=== PATIENT | male | born 1950 | race Caucasian/White ===

== ENCOUNTER 2016-12-22 12:53 | Inpatient (IN) | payer OTHER ==
[2016-12-22] VITALS (9 sets, daily range): BP systolic 105–134; BP diastolic 70–84
[~2016-12-22] VITALS: Ht 177.8 cm; Wt 102.5 kg
[~2016-12-22 12:53] MED LIST: ALBU2.5V5 IH; ALBU2.5V5 NEB; AMLO5TAB4 PO; ASPI325T4 PO; ASPI81TA2 PO; BENZ100C2 PO; BENZ1LOZ48 PO; BESI5DRO RIGHTEYE; BUDE10.2 IH; BYSTOLIC10 MG PO; BYSTOLIC20 MG PO; CARB200T37 PO; CIPR250T30 PO; CYCL10TA2 PO; DILT240C2 PO; DOXY100T PO; ESOM40CA PO; FLUT16SP NS; FLUT9.9S NS; FURO-69 PO; FURO20TA3 PO; FURO40TA4 PO; GABA-586 PO; GUAI100L12 PO; GUAI5SYR PO; GUAI600T38 PO; HYDR-2666 PO; IBUP200T43 PO; IPRA3AMP IH; IPRA3AMP NEB; LEVO500T38 PO; LORA1TAB PO; LOSA50TA6 PO; LOVA20TA2 PO; METH4TAB6 PO; MULT1TAB6 PO; NAPR375T PO; NEPA1.7D RIGHTEYE; NYST1000 PO; OXYC5TAB PO; PRED5DRO6 EACHEYE; PRED5DRO6 RIGHTEYE; PRED5TAB PO; PROM118S2 PO; PROVENTIL HFA6.7 GM IH; SUCR1ORA PO; SUCR1TAB PO; SULF1TAB24 PO; TAMS0.4C2 PO; TIOT18CA IH; TIOT4MIS2 IH; TRAM-29 PO; TRAZ100T12 PO; TRAZ50TA15 PO; ZOLP10TA4 PO
[2016-12-22] MEDS ORDERED: methylPREDNISolone SOD SUCC PF 125 MG/2 ML VIAL. IV ONE (13:00)
[2016-12-22] MEDS ORDERED: IV NORMAL SALINE 500ML BAG 500 ML IV ONE (13:00)
[2016-12-22] MEDS ORDERED: LORAZEPAM 2 MG/ML VIAL IV ONE (13:00)
[2016-12-22] MEDS ORDERED: IPRATRPIUM/ALBUTEROL 0.5/2.5MG 3 ML NEBU. NEB ONE (13:00)
--- NOTE | 2016-12-22 13:00 | PHYS DOC ---
Past Medical History Past Medical History: A-Fib, COPD, Hypertension Additional Past Medical Histor: BACK PAIN, lymphedema, afib with RVR Past Surgical History: Colectomy, Other Additional Past Surgical Histo: RT SHOULDER, BACK Alcohol Use: None Drug Use: None Adult General HPI HPI 66-year-old male presents in acute respiratory distress after being found to have a saturation in the mid 80s by EMS. Patient would not tolerate nonrebreather mask and required bag valve mask ventilation upon arrival. He is in obvious distress and not really speaking in complete sentences. He was immediately placed on BiPAP therapy upon my reassessment the patient now feels improved and is able to provide a history. He states he has been having a chronic cough and states his breathing has worsened acutely today. He states he feels like he has a lot of phlegm in his throat that he cannot clear adequately. He denies any chest pain. He denies any fever. Patient states his symptoms became severe while he was trying to administer a breathing treatment. His daughter arrived and called EMS. Patient does state he has required intubation in the past. 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 Review of Systems Review of Systems Constitutional: Denies fever or chills [] Eyes: Denies change in visual acuity, redness, or eye pain [] HENT: Denies nasal congestion or sore throat [] Respiratory: Has cough, has shortness of breath [] Cardiovascular: No additional information not addressed in HPI [] GI: Denies abdominal pain, nausea, vomiting, bloody stools or diarrhea [] : Denies dysuria or hematuria [] Musculoskeletal: Denies back pain or joint pain [] Integument: Denies rash or skin lesions [] Neurologic: Denies headache, focal weakness or sensory changes [] Endocrine: Denies polyuria or polydipsia [] Current Medications Current Medications Current Medications Medications (Trade) Dose Ordered Sig/Hesham Start Time Stop Time Status Last Admin Dose Admin Albuterol/ Ipratropium 3 ml 3 ml 1X ONCE 12/22/16 13:00 12/22/16 13:01 DC 12/22/16 13:36 3 ML Lorazepam (Ativan) 0.5 mg 1X ONCE 12/22/16 13:00 12/22/16 13:01 DC 12/22/16 13:14 0.5 MG Methylprednisolone Sodium Succinate (Solu-Medrol 125mg Vial) 125 mg 1X ONCE 12/22/16 13:00 12/22/16 13:01 DC 12/22/16 13:14 125 MG Sodium Chloride (Iv Sodium Chloride 0.9% 500ml Bag) 500 ml @ 500 mls/hr 1X ONCE 12/22/16 13:00 12/22/16 13:59 DC 12/22/16 13:15 500 MLS/HR Allergies Allergies Allergies Coded Allergies Type Severity Reaction Last Updated Verified oxycodone Allergy Intermediate Shortness of Air 05/30/16 Yes Physical Exam Physical Exam Constitutional: Well developed, well nourished, no acute distress, mildly toxic in appearance. [] HENT: Normocephalic, atraumatic, bilateral external ears normal, oropharynx moist, no oral exudates, nose normal. [] Eyes: PERRLA, EOMI, conjunctiva normal, no discharge. [] Neck: Normal range of motion, no tenderness, supple, no stridor. [] Cardiovascular:Heart rate regular rhythm, no murmur [] Lungs & Thorax: Decreased bilaterally with significant respiratory distress, tachypnea [] Abdomen: Bowel sounds normal, soft, no tenderness, no masses, no pulsatile masses. [] Skin: Warm, dry, no erythema, no rash. [] Back: No tenderness, no CVA tenderness. [] Extremities: No tenderness, no cyanosis, no clubbing, ROM intact, no edema. [] Neurologic: Alert and oriented X 3, normal motor function, normal sensory function, no focal deficits noted. [] Psychologic: Affect normal, judgement normal, mood normal. [] Current Patient Data Vital Signs Vital Signs Date Time Temp Pulse Resp B/P Pulse Ox O2 Delivery O2 Flow Rate FiO2 12/22/16 13:15 113 30 155/110 97 BiPAP/CPAP 12/22/16 13:15 98.0 10 98.0 Lab Values Laboratory Tests Test 12/22/16 12:55 12/22/16 13:22 White Blood Count 8.3x10^3/uL (4.0-11.0) Red Blood Count 5.21x10^6/uL (4.30-5.70) Hemoglobin 14.0g/dL (13.0-17.5) Hematocrit 42.9% (39.0-53.0) Mean Corpuscular Volume 82fL (79-100) Mean Corpuscular Hemoglobin 27pg (25-35) Mean Corpuscular Hemoglobin Concent 33g/dL (31-37) Red Cell Distribution Width 14.3% (11.5-14.5) Platelet Count 174x10^3/uL (140-400) Neutrophils (%) (Auto) 70% (31-73) Lymphocytes (%) (Auto) 16% (24-48) L Monocytes (%) (Auto) 10% (0-9) H Eosinophils (%) (Auto) 3% (0-3) Basophils (%) (Auto) 1% (0-3) Neutrophils # (Auto) 5.8x10^3uL (1.8-7.7) Lymphocytes # (Auto) 1.3x10^3/uL (1.0-4.8) Monocytes # (Auto) 0.8x10^3/uL (0.0-1.1) Eosinophils # (Auto) 0.3x10^3/uL (0.0-0.7) Basophils # (Auto) 0.1x10^3/uL (0.0-0.2) Sodium Level 130mmol/L (136-145) L Potassium Level 4.6mmol/L (3.5-5.1) Chloride Level 89mmol/L (98-107) L Carbon Dioxide Level 37mmol/L (21-32) H Anion Gap 4 (6-14) L Blood Urea Nitrogen 9mg/dL (8-26) Creatinine 0.7mg/dL (0.7-1.3) Estimated GFR (Cockcroft-Gault) 113.5 Glucose Level 106mg/dL (70-99) H Calcium Level 9.7mg/dL (8.5-10.1) Troponin I Quantitative < 0.017ng/mL (0.000-0.055) JY-Zvz-L-Type Natriuretic Peptide 93pg/mL (0-124) O2 Saturation 96% (92-99) Arterial Blood pH 7.35 (7.35-7.45) Arterial Blood pCO2 at Patient Temp 64mmHg (35-46) *H Arterial Blood pO2 at Patient Temp 86mmHg (65-108) Arterial Blood HCO3 35mmol/L (21-28) H Arterial Blood Base Excess 7mmol/L (-3-3) H FiO2 40 Laboratory Tests 12/22/16 12:55 Laboratory Tests 12/22/16 12:55 EKG EKG EKG is difficult to interpret secondary to significant artifact due to the patient's work of breathing. There is no obvious ischemic findings. Radiology/Procedures Radiology/Procedures Portable 1 view of the chest as interpreted by me and the radiologist shows diffuse interstitial changes with emphysema. Course & Med Decision Making Course & Med Decision Making Pertinent Labs and Imaging studies reviewed. (See chart for details) 66-year-old male who is having obvious respiratory distress was immediately placed upon BiPAP and reassessed multiple times has significantly improved. His chest x-ray and EKG were fairly unremarkable. I believe his symptoms are likely related to COPD exacerbation. His blood gas revealed a pH of 7.35 with a PCO2 of 63 and a PO2 of 86 his bicarbonate was mildly elevated at 35 which is likely compensatory for his ongoing respiratory acidosis. He will remain on BiPAP therapy and be admitted to the ICU with a pulmonology consult placed. His case was discussed with the hospitalist, Dr. Smith, who agreed to accept the admission and agreed with this treatment plan. Patient was also given a DuoNeb and IV Solu-Medrol. Approximately 30 minutes critical care time reusing with this patient in consultation with specialists. His laboratory workup was otherwise non-revealing. Dragon Disclaimer Dragon Disclaimer This electronic medical record was generated, in whole or in part, using a voice recognition dictation system. Critical Care Time Critical care time was 30 minutes exclusive of procedures. Departure Departure Impression: Primary Impression: COPD with acute exacerbation Additional Impression: Acute respiratory distress Disposition: ADMITTED INPATIENT Admitting Physician: Diamond Triana Condition: CRITICAL Referrals: SUZAN CLARKE (PCP) Problem Qualifiers JERROD MARK DO Dec 22, 2016 13:00
[2016-12-22 13:14] LABS: BASO # 0.1 x10^3/uL (0.0-0.2); BASO % 1 % (0-3); EOS % 3 % (0-3); HEMATOCRIT 42.9 % (39.0-53.0); LYMPH # 1.3 x10^3/uL (1.0-4.8); LYMPH % 16 % (24-48); MEAN CORPUSCULAR HEMOGLOBIN 27 pg (25-35); MEAN CORPUSCULAR HGB CONC 33 g/dL (31-37); MEAN CORPUSCULAR VOLUME 82 fL (79-100); MONO % 10 % (0-9); NEUT % 70 % (31-73); PLATELET COUNT 174 x10^3/uL (140-400); RED BLOOD COUNT 5.21 x10^6/uL (4.30-5.70); RED CELL DISTRIBUTION WIDTH 14.3 % (11.5-14.5); WHITE BLOOD COUNT 8.3 x10^3/uL (4.0-11.0)
--- NOTE | 2016-12-22 13:20 | RAD ---
EXAM: Chest, single view. HISTORY: Shortness of breath. COMPARISON: 06/04/2016. FINDINGS: A frontal view of the chest is obtained. There is emphysema. There has been no significant change in diffuse interstitial prominence. There is no consolidation, effusion or pneumothorax. There is stable blunting of the left costophrenic angle likely due to pleural thickening. The heart is normal in size. IMPRESSION: 1. Stable diffuse interstitial prominence superimposed on emphysema. There is no consolidated infiltrate. 2. Stable left basilar pleural thickening.
[2016-12-22 13:24] LABS: CALCIUM 9.7 mg/dL (8.5-10.1); CREATININE 0.7 mg/dL (0.7-1.3); GFR 113.5; POTASSIUM 4.6 mmol/L (3.5-5.1)
[2016-12-22] MEDS ORDERED: ONDANSETRON PF 4 MG/2 ML VIAL. IV PRN ×2 (13:45→15:05)
[2016-12-22] MEDS ORDERED: ACETAMINOPHEN 325 MG TABLET. PO PRN (13:45)
[2016-12-22 13:56] LABS: HCO3 ABG 35 mmol/L (21-28); PH ABG 7.35 (7.35-7.45); PO2 ABG 86 mmHg (65-108); SAT O2 ABG 96 % (92-99)
[2016-12-22 13:57] LABS: FIO2 ABG 40; PCO2 ABG 64 mmHg (35-46)
[2016-12-22] MEDS: IV NORMAL SALINE 1000ML BAG 1,000 ML IV SCH (14:30)
--- NOTE | 2016-12-22 14:41 | ACF ---
Admission Forms Criteria COPD Clinical Indications for Admission to Inpatient Care (Place 'X' for any and all applicable criteria): Admission is indicated for ANY ONE of the following (1)(2)(3): [X]I. Acute exacerbation by high-risk comorbidity (e.g., pneumonia, dysrhythmia, heart failure, pleural effusion, pneumothorax) or severe underlying COPD (e.g., steroid dependent) [X]II. Inpatient admission required rather than observation care (see Chronic Obstructive Pulmonary Disease: Observation Care) because of ANY ONE of the following: [X]a) New or pre-existing signs or symptoms of COPD (eg, dyspnea or Tachypnea at rest or with minimal activity) that persist despite outpatient and observation care treatment [ ]b) New-onset hypoxemia (room air SaO2 less than 90%, PO2 less than 60 mm Hg (8.0 kPa)) that persists despite outpatient and observation care treatment [ ]c) Worsening of pre-existing hypoxemia (eg, new or increased requirement for supplemental oxygen to maintain oxygenation at baseline level) that persists despite outpatient and observation care treatment, with oxygen treatment needs performable only in acute inpatient setting [ ]d) Hypercarbia (PCO2 greater than 40 mm Hg (5.3 kPa))-induced respiratory acidosis (pH less than 7.35) that persists despite outpatient and observation care treatment [ ]e) Supplemental oxygen or respiratory treatments for over 24 hours that are performable only in acute inpatient setting [ ]f) Chest tube placement with active evacuation (e.g., suction, drainage) (5) [ ]g) Other condition, treatment or monitoring requiring inpatient admission [ ]III. Planned invasive surgical or diagnostic procedures requiring acute- care hospitalization [ ]IV. Acute respiratory failure (e.g., uncompensated hypercarbia, severe hypoxemia) [ ]V. Severe comorbid condition (e.g., severe steroid myopathy, acute vertebral fracture) that has acutely worsened pulmonary function [ ]. Confusion state, lethargy, obtundation, stupor or coma Extended stay beyond goal length of stay may be needed for (31)(32): [ ]a ) Respiratory Failure. [ ]b) Severe or persisting hypoxemia or hypercarbia [ ]c) Severe or persistent dyspnea [ ]d) Comorbidities (e.g. chronic heart failure, atrial fibrillation with rapid response, pneumonia) [ ]e) Malnutrition The original [facility] content created by [facility] has been revised. The portions of the content which have been revised are identified through the use of italic text or in bold, and [facility] has neither reviewed nor approved the modified material. All other unmodified content is copyright [facility]. Please see references footnoted in the original [facility] edition 2016 Admission Criteria Met?: Yes DORIS JORDAN Dec 22, 2016 14:41
[2016-12-22] MEDS ORDERED: hydrALAZINE 20 MG/ML VIAL. IVP PRN (15:15)
--- NOTE | 2016-12-22 15:16 | PDOC1 ---
History and Physical Date of Admission Date of Admission DATE: 12/22/16 TIME: 15:08 Identification/Chief Complaint Chief Complaint SOA Source Source: Caregiver, Chart review, Patient History of Present Illness History of Present Illness 66 y/o male known to us bec of COPD exacerbations causing multiple admissions,. Today As per EMS report was satting low 80s, needed to be bagged multiple times in the scene,. Claims compliance of inhalers, his last admission was May 2016 for the same CXR shows: old scarring, otherwise no acute pneumonia At ER pH 7.3, Co2 63, O2 80s, on bipap. Doing relatively good on BIPAP VS ok Always complaining of itchy or chronic dc on the back of his throat, always mentions almost like a bronch to get thephlegm out of back of his throat Past Medical History Cardiovascular: CAD, HTN, Syncope, Hyperlipidemia, Other Pulmonary: Asthma, COPD, Pneumonia, Other CENTRAL NERVOUS SYSTEM: Other GI: GERD Heme/Onc: No pertinent hx, Cancer Hepatobiliary: No pertinent hx Psych: No pertinent hx Musculoskeletal: low back pain, Osteoarthritis Rheumatologic: No pertinent hx Infectious disease: No pertinent hx Renal/: Benign prostatic enlarg. Endocrine: No pertinent hx Past Surgical History Past Surgical History: Cholecystectomy, Other Family History Family History: Chronic Bronchitis Social History Smoke: Quit ALCOHOL: none Drugs: None Current Problem List Problem List Problems Medical Problems: (1) Acute respiratory distress Status: Acute (2) COPD with acute exacerbation Status: Acute Problems: Current Medications Current Medications Current Medications Methylprednisolone Sodium Succinate (Solu-Medrol 125mg Vial) 125 mg 1X ONCE IV Last administered on 12/22/16 13:14; Start 12/22/16 at 13:00; Stop 12/22/16 at 13:01; Status DC Albuterol/ Ipratropium 3 ml 3 ml 1X ONCE NEB Last administered on 12/22/16 13 :36; Start 12/22/16 at 13:00; Stop 12/22/16 at 13:01; Status DC Sodium Chloride (Iv Sodium Chloride 0.9% 500ml Bag) 500 ml @ 500 mls/hr 1X ONCE IV Last administered on 12/22/16 13:15; Start 12/22/16 at 13:00; Stop at 13:59; Status DC Lorazepam (Ativan) 0.5 mg 1X ONCE IV Last administered on 12/22/16t 13:14; Start 12/22/16 at 13:00; Stop 12/22/16 at 13:01; Status DC Ondansetron HCl 4 mg 4 mg PRN Q8HRS PRN IV NAUSEA/VOMITING; Start 12/22/16 at 13:45; Stop 12/22/16 at 15:07; Status DC Sodium Chloride (Iv Sodium Chloride 0.9% 1000ml Bag) 1,000 ml @ 100 mls/hr Q10H IV Last administered on 12/22/16t 14:30; Start 12/22/16 at 14:00; Stop at 13:59 Acetaminophen (Tylenol) 650 mg PRN Q4HRS PRN PO FEVER; Start 12/22/16 at 13:45 ; Stop 12/23/16 at 13:44 Ondansetron HCl (Zofran) 4 mg PRN Q6HRS PRN IV NAUSEA/VOMITING; Start 12/22/16 at 15:05; Status UNV Guaifenesin (Mucinex) 600 mg BID PO ; Start 12/22/16 at 21:00; Status UNV Guaifenesin (Robitussin Dm) 10 ml QID PO ; Start 12/22/16 at 17:00; Status UNV Albuterol/ Ipratropium (Duoneb) 3 ml RTQID NEB ; Start 12/22/16 at 16:00; Status UNV Aspirin (Yolette Aspirin) 325 mg DAILY PO ; Start 12/23/16 at 09:00; Status UNV Throat Lozenges (Cepacol Sore Throat Lozenge) 1 analia PRN Q2HRS PRN PO SORE THROAT; Start 12/22/16 at 15:15; Status UNV Benzonatate (Tessalon Perle) 100 mg TID PRN PO COUGH; Start 12/22/16 at 15:15; Status UNV Diltiazem HCl (Cardizem 24hr Cd) 240 mg DAILY PO ; Start 12/23/16 at 09:00; Status UNV Furosemide (Lasix) 40 mg DAILY PO ; Start 12/23/16 at 09:00; Status UNV Losartan Potassium (Cozaar) 100 mg DAILY PO ; Start 12/23/16 at 09:00; Status UNV Tamsulosin HCl (Flomax) 0.4 mg DAILY PO ; Start 12/23/16 at 09:00; Status UNV Non-Formulary Medication 40 mg DAILY PO GERD; Start 12/23/16 at 09:00; Status UNV Non-Formulary Medication 20 mg DAILY PO cholesterol; Start 12/23/16 at 09:00; Status UNV Active Scripts Active Cepacol Sore Throat Lozenge (Benzocaine/Menthol) 1 Each Lozenge 1 Analia PO PRN Q2HRS PRN Benzonatate 100 Mg Capsule 100 Mg PO TID PRN Promethazine-Codeine Syrup (Promethazine Hcl/Codeine) 118 Ml Syrup 5 Ml PO PRN Q4HRS PRN Mucinex (Guaifenesin) 600 Mg Tablet.er 1 Tab PO BID Reported Guaifenesin Dm Syrup (Guaifenesin/Dextromethorphan) 5 Ml Syrup 10 Ml PO PRN Q6HRS PRN Flonase Allergy Relief (Fluticasone Propionate) 9.9 Ml Pilgrim.susp 2 Sprays NS DAILY Cardizem Cd (Diltiazem Hcl) 240 Mg Cap.er.24h 1 Cap PO DAILY Albuterol Sulfate Neb Soln (Albuterol Sulfate) 2.5 Mg/3 Ml Vial.neb 1 Vial NEB PRN Q2HRS PRN Aspirin 325 Mg Tablet 1 Tab PO DAILY Duoneb 0.5-3(2.5) Mg/3 Ml (Albuterol/Ipratropium) 3 Ml Ampul.neb 3 Ml IH Q4HRS Symbicort 160-4.5 Mcg Inhaler (Budesonide/Formoterol Fumarate) 10.2 Gm Hfa.aer.ad 2 Puff IH BID Furosemide 40 Mg Tablet 40 Mg PO DAILY Nexium Capsule (Esomeprazole Magnesium) 40 Mg Capsule.dr 40 Mg PO DAILY Lovastatin 20 Mg Tablet 20 Mg PO DAILY Tamsulosin Hcl 0.4 Mg Cap.er.24h 0.4 Mg PO DAILY Losartan Potassium 50 Mg Tablet 100 Mg PO DAILY Allergies Allergies: Coded Allergies: oxycodone (Verified Allergy, Intermediate, Shortness of Air, 05/30/16) problems with increased CO2 levels with his COPD ROS Review of System limited on bIPAP Physical Exam General: mild distress, moderate distress, Other (on bipap) HEENT: Atraumatic Lungs: Normal air movement, Other (dec BS, tight air entry) Cardiovascular: S1, S2 Breasts: Normal Abdomen: Normal bowel sounds, Soft, No tenderness, No hepatosplenomegaly, No masses Rectal Exam: not examined, mass PELVIC: Nml ext genitalia Extremities: No clubbing, No cyanosis, No edema, Normal pulses, No tenderness/ swelling Skin: No rashes, No breakdown, No significant lesion Psych/Mental Status: Mental status NL, Mood NL Vitals Vitals Vital Signs Date Time Temp Pulse Resp B/P Pulse Ox O2 Delivery O2 Flow Rate FiO2 12/22/16 14:58 95 BiPAP/CPAP 12/22/16 14:18 104 30 135/81 12/22/16 13:15 98.0 10 98.0 Labs Labs Laboratory Tests Test 12/22/16 12:55 12/22/16 13:22 White Blood Count 8.3x10^3/uL (4.0-11.0) Red Blood Count 5.21x10^6/uL (4.30-5.70) Hemoglobin 14.0g/dL (13.0-17.5) Hematocrit 42.9% (39.0-53.0) Mean Corpuscular Volume 82fL (79-100) Mean Corpuscular Hemoglobin 27pg (25-35) Mean Corpuscular Hemoglobin Concent 33g/dL (31-37) Red Cell Distribution Width 14.3% (11.5-14.5) Platelet Count 174x10^3/uL (140-400) Neutrophils (%) (Auto) 70% (31-73) Lymphocytes (%) (Auto) 16% (24-48) Monocytes (%) (Auto) 10% (0-9) Eosinophils (%) (Auto) 3% (0-3) Basophils (%) (Auto) 1% (0-3) Neutrophils # (Auto) 5.8x10^3uL (1.8-7.7) Lymphocytes # (Auto) 1.3x10^3/uL (1.0-4.8) Monocytes # (Auto) 0.8x10^3/uL (0.0-1.1) Eosinophils # (Auto) 0.3x10^3/uL (0.0-0.7) Basophils # (Auto) 0.1x10^3/uL (0.0-0.2) Sodium Level 130mmol/L (136-145) Potassium Level 4.6mmol/L (3.5-5.1) Chloride Level 89mmol/L (98-107) Carbon Dioxide Level 37mmol/L (21-32) Anion Gap 4 (6-14) Blood Urea Nitrogen 9mg/dL (8-26) Creatinine 0.7mg/dL (0.7-1.3) Estimated GFR (Cockcroft-Gault) 113.5 Glucose Level 106mg/dL (70-99) Calcium Level 9.7mg/dL (8.5-10.1) Troponin I Quantitative < 0.017ng/mL (0.000-0.055) PI-Ssc-T-Type Natriuretic Peptide 93pg/mL (0-124) O2 Saturation 96% (92-99) Arterial Blood pH 7.35 (7.35-7.45) Arterial Blood pCO2 at Patient Temp 64mmHg (35-46) Arterial Blood pO2 at Patient Temp 86mmHg (65-108) Arterial Blood HCO3 35mmol/L (21-28) Arterial Blood Base Excess 7mmol/L (-3-3) FiO2 40 Laboratory Tests Test 12/22/16 12:55 12/22/16 13:22 White Blood Count 8.3x10^3/uL (4.0-11.0) Red Blood Count 5.21x10^6/uL (4.30-5.70) Hemoglobin 14.0g/dL (13.0-17.5) Hematocrit 42.9% (39.0-53.0) Mean Corpuscular Volume 82fL (79-100) Mean Corpuscular Hemoglobin 27pg (25-35) Mean Corpuscular Hemoglobin Concent 33g/dL (31-37) Red Cell Distribution Width 14.3% (11.5-14.5) Platelet Count 174x10^3/uL (140-400) Neutrophils (%) (Auto) 70% (31-73) Lymphocytes (%) (Auto) 16% (24-48) Monocytes (%) (Auto) 10% (0-9) Eosinophils (%) (Auto) 3% (0-3) Basophils (%) (Auto) 1% (0-3) Neutrophils # (Auto) 5.8x10^3uL (1.8-7.7) Lymphocytes # (Auto) 1.3x10^3/uL (1.0-4.8) Monocytes # (Auto) 0.8x10^3/uL (0.0-1.1) Eosinophils # (Auto) 0.3x10^3/uL (0.0-0.7) Basophils # (Auto) 0.1x10^3/uL (0.0-0.2) Sodium Level 130mmol/L (136-145) Potassium Level 4.6mmol/L (3.5-5.1) Chloride Level 89mmol/L (98-107) Carbon Dioxide Level 37mmol/L (21-32) Anion Gap 4 (6-14) Blood Urea Nitrogen 9mg/dL (8-26) Creatinine 0.7mg/dL (0.7-1.3) Estimated GFR (Cockcroft-Gault) 113.5 Glucose Level 106mg/dL (70-99) Calcium Level 9.7mg/dL (8.5-10.1) Troponin I Quantitative < 0.017ng/mL (0.000-0.055) RW-Oks-B-Type Natriuretic Peptide 93pg/mL (0-124) O2 Saturation 96% (92-99) Arterial Blood pH 7.35 (7.35-7.45) Arterial Blood pCO2 at Patient Temp 64mmHg (35-46) Arterial Blood pO2 at Patient Temp 86mmHg (65-108) Arterial Blood HCO3 35mmol/L (21-28) Arterial Blood Base Excess 7mmol/L (-3-3) FiO2 40 VTE Prophylaxis Ordered VTE Prophylaxis Devices: Yes VTE Pharmacological Prophylaxi: Yes Assessment/Plan Assessment/Plan 1. Acute hypoxic respiratory failure needing NIPPV and bagging at the scene 1.Acute bronchitis 2. AECOPD, severe 3. PRev smoker (quit 2 yrs ago) 4. Obesity 5. Salazar Dermatitis face, better 6. Superficial dermatitis, intertriginous areas 7. Obesity 8. MIld to mod PCM 9./ GERD 10. LEg edema 12. Scrotal swelling, resolved 13. Post nasal drip PLAN: NEbs, steroids, ICU admit Pulmo consult At least 2 cough meds PT/OT REg diet when off bipap Cetirizine NAsal sprays - help with post nasal gtt seen at ER Resume home meds PT/OT once more able dw family cc 30 DAVID KEBEDE MD Dec 22, 2016 15:16
[2016-12-22] MEDS ORDERED: PANT40GR PO (15:35)
[2016-12-22] MEDS ORDERED: ATOR10TA PO (15:35)
[2016-12-22] MEDS ORDERED: ASPI325T4 PO (15:35)
[2016-12-22] MEDS ORDERED: SPIR50TA PO (15:35)
[2016-12-22] MEDS ORDERED: SCOP1PAT TP (15:35)
[2016-12-22] MEDS ORDERED: GUAI-297 PO (15:35)
[2016-12-22] MEDS ORDERED: POTA20TA82 PO (15:35)
[2016-12-22] MEDS ORDERED: ALPR0.5T PO (15:36)
[2016-12-22] MEDS ORDERED: CETI10TA22 PO (15:36)
[2016-12-22] MEDS: ASPIRIN 325 MG TABLET PO SCH (16:00)
[2016-12-22] MEDS: DILTIAZEM HCL 240 MG CAP.ER.24H PO SCH (16:00)
[2016-12-22] MEDS: TAMSULOSIN 0.4 MG CAP.ER.24H. PO SCH (16:00)
[2016-12-22] MEDS: LOSARTAN POTASSIUM 50 MG TABLET. PO SCH (16:00)
[2016-12-22] MEDS: FUROSEMIDE 40 MG TABLET PO SCH (16:00)
[2016-12-22] MEDS: IPRATRPIUM/ALBUTEROL 0.5/2.5MG 3 ML NEBU. NEB SCH ×2 (16:55→20:39)
[2016-12-22] MEDS: ATORVASTATIN CALCIUM 10 MG TABLET. PO SCH (20:59)
[2016-12-22] MEDS: ALPRAZOLAM 0.5 MG TABLET PO PRN (20:59)
[2016-12-22] MEDS: GUAIFENESIN ER 600 MG TABLET.ER PO SCH (20:59)
[2016-12-22] MEDS: SCOPOLAMINE 1.5MG PATCH. TD SCH (20:59)
[2016-12-22] MEDS: ENOXAPARIN 40 MG/0.4 ML DISP.SYRIN. SQ SCH (21:00)
[2016-12-22] MEDS ORDERED: FAMOTIDINE 20 MG/2 ML VIAL IVP SCH (21:00)
[2016-12-23] VITALS (12 sets, daily range): BP systolic 100–150; BP diastolic 57–92
[2016-12-23] MEDS ORDERED: IPRATRPIUM/ALBUTEROL 0.5/2.5MG 3 ML NEBU. NEB ONE (01:30)
[2016-12-23] MEDS: IPRATRPIUM/ALBUTEROL 0.5/2.5MG 3 ML NEBU. NEB SCH ×6 (03:36→23:55)
--- NOTE | 2016-12-23 06:33 | EKG ---
[facility] [address] [place] [address] Test Date: 2016-12-22 Test Time: 13:19:15 Pat Name: JADYN MORRISON Department: Room: 106 Gender: M Comfort Advisor: : [id number] Requested By: JERROD MARK Order Number: [id number] Reading MD: Sonny Luevano Measurements Intervals [place] Rate: 105 P: MS: QRS: -26 QRSD: 82 T: 143 QT: 316 QTc: 421 Interpretive Statements BASELINE ARTIFACT SUSPECT REGULAR SINUS RHYTHM RECOMMEND REPEAT EKG Electronically Signed On 12-23-2016 10:41:24 [employer] by Sonny Luevano
--- NOTE | 2016-12-23 07:32 | PDOC ---
PULMONARY PROGRESS NOTES Vitals Vital Signs Date Time Temp Pulse Resp B/P Pulse Ox O2 Delivery O2 Flow Rate FiO2 12/23/16 07:22 6.0 12/23/16 07:00 98.6 24 24 148/92 91 BiPAP/CPAP 98.6 General: Alert, Oriented X4, No acute distress Lungs: Other Cardiovascular: S1, S2 Abdomen: Soft, Non-tender Extremities: Other Labs Laboratory Tests Test 12/22/16 12:55 12/22/16 13:22 12/22/16 20:00 12/23/16 01:48 White Blood Count 8.3x10^3/uL (4.0-11.0) Red Blood Count 5.21x10^6/uL (4.30-5.70) Hemoglobin 14.0g/dL (13.0-17.5) Hematocrit 42.9% (39.0-53.0) Mean Corpuscular Volume 82fL (79-100) Mean Corpuscular Hemoglobin 27pg (25-35) Mean Corpuscular Hemoglobin Concent 33g/dL (31-37) Red Cell Distribution Width 14.3% (11.5-14.5) Platelet Count 174x10^3/uL (140-400) Neutrophils (%) (Auto) 70% (31-73) Lymphocytes (%) (Auto) 16% (24-48) Monocytes (%) (Auto) 10% (0-9) Eosinophils (%) (Auto) 3% (0-3) Basophils (%) (Auto) 1% (0-3) Neutrophils # (Auto) 5.8x10^3uL (1.8-7.7) Lymphocytes # (Auto) 1.3x10^3/uL (1.0-4.8) Monocytes # (Auto) 0.8x10^3/uL (0.0-1.1) Eosinophils # (Auto) 0.3x10^3/uL (0.0-0.7) Basophils # (Auto) 0.1x10^3/uL (0.0-0.2) Sodium Level 130mmol/L (136-145) Potassium Level 4.6mmol/L (3.5-5.1) Chloride Level 89mmol/L (98-107) Carbon Dioxide Level 37mmol/L (21-32) Anion Gap 4 (6-14) Blood Urea Nitrogen 9mg/dL (8-26) Creatinine 0.7mg/dL (0.7-1.3) Estimated GFR (Cockcroft-Gault) 113.5 Glucose Level 106mg/dL (70-99) Calcium Level 9.7mg/dL (8.5-10.1) Troponin I Quantitative < 0.017ng/mL (0.000-0.055) < 0.017ng/mL (0.000-0.055) < 0.017ng/mL (0.000-0.055) RO-Yyk-H-Type Natriuretic Peptide 93pg/mL (0-124) O2 Saturation 96% (92-99) Arterial Blood pH 7.35 (7.35-7.45) Arterial Blood pCO2 at Patient Temp 64mmHg (35-46) Arterial Blood pO2 at Patient Temp 86mmHg (65-108) Arterial Blood HCO3 35mmol/L (21-28) Arterial Blood Base Excess 7mmol/L (-3-3) FiO2 40 Laboratory Tests Test 12/22/16 12:55 12/22/16 13:22 12/22/16 20:00 12/23/16 01:48 White Blood Count 8.3x10^3/uL (4.0-11.0) Red Blood Count 5.21x10^6/uL (4.30-5.70) Hemoglobin 14.0g/dL (13.0-17.5) Hematocrit 42.9% (39.0-53.0) Mean Corpuscular Volume 82fL (79-100) Mean Corpuscular Hemoglobin 27pg (25-35) Mean Corpuscular Hemoglobin Concent 33g/dL (31-37) Red Cell Distribution Width 14.3% (11.5-14.5) Platelet Count 174x10^3/uL (140-400) Neutrophils (%) (Auto) 70% (31-73) Lymphocytes (%) (Auto) 16% (24-48) Monocytes (%) (Auto) 10% (0-9) Eosinophils (%) (Auto) 3% (0-3) Basophils (%) (Auto) 1% (0-3) Neutrophils # (Auto) 5.8x10^3uL (1.8-7.7) Lymphocytes # (Auto) 1.3x10^3/uL (1.0-4.8) Monocytes # (Auto) 0.8x10^3/uL (0.0-1.1) Eosinophils # (Auto) 0.3x10^3/uL (0.0-0.7) Basophils # (Auto) 0.1x10^3/uL (0.0-0.2) Sodium Level 130mmol/L (136-145) Potassium Level 4.6mmol/L (3.5-5.1) Chloride Level 89mmol/L (98-107) Carbon Dioxide Level 37mmol/L (21-32) Anion Gap 4 (6-14) Blood Urea Nitrogen 9mg/dL (8-26) Creatinine 0.7mg/dL (0.7-1.3) Estimated GFR (Cockcroft-Gault) 113.5 Glucose Level 106mg/dL (70-99) Calcium Level 9.7mg/dL (8.5-10.1) Troponin I Quantitative < 0.017ng/mL (0.000-0.055) < 0.017ng/mL (0.000-0.055) < 0.017ng/mL (0.000-0.055) MD-Yiv-C-Type Natriuretic Peptide 93pg/mL (0-124) O2 Saturation 96% (92-99) Arterial Blood pH 7.35 (7.35-7.45) Arterial Blood pCO2 at Patient Temp 64mmHg (35-46) Arterial Blood pO2 at Patient Temp 86mmHg (65-108) Arterial Blood HCO3 35mmol/L (21-28) Arterial Blood Base Excess 7mmol/L (-3-3) FiO2 40 Medications Active Scripts Medications Dose Route/Sig Days Date Category Zyrtec (Cetirizine Hcl) 10 Mg Tablet 1 Tab PO DAILY 12/22/16 Reported Xanax (Alprazolam) 0.5 Mg Tablet 0.5 Mg PO PRN Q6HRS PRN 12/22/16 Reported Robitussin Cough-Chest Dm Liq (Guaifenesin/Dextromethorphan) 118 Ml Liquid 118 Ml PO 12/22/16 Reported Transderm-Scop (Scopolamine) 1 Each Patch.td72 1 Patch TP Q3DAYS 12/22/16 Reported Protonix (Pantoprazole Sodium) 40 Mg Granpkt.dr 40 Mg PO DAILY 12/22/16 Reported Lipitor (Atorvastatin Calcium) 10 Mg Tablet 0.5 Tab PO QHS 12/22/16 Reported Potassium Chloride 20 Meq Tablet.er 20 Meq PO DAILY 12/22/16 Reported Aspirin 325 Mg Tablet 1 Tab PO DAILY 12/22/16 Reported Aldactone (Spironolactone) 50 Mg Tablet 1 Tab PO DAILY 12/22/16 Reported Guaifenesin Dm Syrup (Guaifenesin/Dextromethorphan) 5 Ml Syrup 10 Ml PO PRN Q6HRS PRN 06/01/16 Reported Flonase Allergy Relief (Fluticasone Propionate) 9.9 Ml [place].susp 2 Sprays NS DAILY 06/01/16 Reported Cardizem Cd (Diltiazem Hcl) 240 Mg Cap.er.24h 1 Cap PO DAILY 06/01/16 Reported Albuterol Sulfate Neb Soln (Albuterol Sulfate) 2.5 Mg/3 Ml Vial.neb 1 Vial NEB PRN Q2HRS PRN 06/01/16 Reported Aspirin 325 Mg Tablet 1 Tab PO DAILY 06/01/16 Reported Cepacol Sore Throat Lozenge (Benzocaine/Menthol) 1 Each Lozenge 1 Analia PO PRN Q2HRS PRN 04/23/16 Rx Benzonatate 100 Mg Capsule 100 Mg PO TID PRN 04/23/16 Rx Promethazine-Codeine Syrup (Promethazine Hcl/Codeine) 118 Ml Syrup 5 Ml PO PRN Q4HRS PRN 04/23/16 Rx Duoneb 0.5-3(2.5) Mg/3 Ml (Albuterol/Ipratropium) 3 Ml Ampul.neb 3 Ml IH Q4HRS 10/25/15 Reported Symbicort 160-4.5 Mcg Inhaler (Budesonide/Formoterol Fumarate) 10.2 Gm Hfa.aer.ad 2 Puff IH BID 08/11/15 Reported Furosemide 40 Mg Tablet 40 Mg PO DAILY 08/11/15 Reported Mucinex (Guaifenesin) 600 Mg Tablet.er 1 Tab PO BID 11/23/14 Rx Nexium Capsule (Esomeprazole Magnesium) 40 Mg Capsule.dr 40 Mg PO DAILY 01/18/14 Reported Lovastatin 20 Mg Tablet 20 Mg PO DAILY 01/18/14 Reported Tamsulosin Hcl 0.4 Mg Cap.er.24h 0.4 Mg PO DAILY 01/18/14 Reported Losartan Potassium 50 Mg Tablet 100 Mg PO DAILY 01/18/14 Reported Impression . full consult dictated thanks Agreed with current Rx GABY RAMSEY MD Dec 23, 2016 07:32
[2016-12-23] MEDS: ASPIRIN 325 MG TABLET PO SCH (08:28)
[2016-12-23] MEDS: LOSARTAN POTASSIUM 50 MG TABLET. PO SCH (08:28)
[2016-12-23] MEDS: TAMSULOSIN 0.4 MG CAP.ER.24H. PO SCH (08:29)
[2016-12-23] MEDS: CETIRIZINE HCL 10 MG TABLET PO SCH (08:29)
[2016-12-23] MEDS: FUROSEMIDE 40 MG TABLET PO SCH (08:29)
[2016-12-23] MEDS: DILTIAZEM HCL 240 MG CAP.ER.24H PO SCH (08:29)
[2016-12-23] MEDS: PANTOPRAZOLE 40 MG TABLET. PO SCH (08:29)
[2016-12-23] MEDS: FLUTICASONE 50MCG/NASAL SPRAY 16GM BOTTLE. NS SCH (08:30)
[2016-12-23] MEDS: GUAIFENESIN ER 600 MG TABLET.ER PO SCH ×2 (08:30→21:14)
[2016-12-23] MEDS: IV NORMAL SALINE 1000ML BAG 1,000 ML IV SCH ×2 (09:53)
--- NOTE | 2016-12-23 10:35 | PDOC ---
PROGRESS NOTES Chief Complaint Chief Complaint 1. Acute hypoxic respiratory failure needing NIPPV and bagging at the scene 1.Acute bronchitis 2. AECOPD, severe 3. PRev smoker (quit 2 yrs ago) 4. Obesity 5. Salazar Dermatitis face, better 6. Superficial dermatitis, intertriginous areas 7. Obesity 8. MIld to mod PCM 9./ GERD 10. LEg edema 12. Scrotal swelling, resolved 13. Post nasal drip History of Present Illness History of Present Illness DOing well, on nasal canula this AM NO inc in SOA WAs on BIPAP all throughout the night since admission CXR - no PNA Mentions to me his stools are altered, sometime spellets, and lately has been liquidy Claims had c scope 3 yrs ago and is supposed to do it q2 yrs Claims on lasix 80 PO at home CLaims loved it at [facility], did not like it much at [facility] LAst admit here for COPD exacrb was May 2016 , which is actually good for this pt given his frequency in the past Willing t go back to [facility] PL[facility] screen - it has been > 3 mos since last SNU Resume home dose lasix Dc iVF PT/OT Check stool cx, fat weigh stool - he mentions white seems like fat floaty substance in stool Consult GI\ ok to t.o ICU 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 Vitals Vitals Vital Signs Date Time Temp Pulse Resp B/P Pulse Ox O2 Delivery O2 Flow Rate FiO2 12/23/16 09:03 92 Nasal Cannula 4.0 12/23/16 08:29 24 148/92 12/23/16 07:00 98.6 24 98.6 Physical Exam General: mild distress, moderate distress, Other (on bipap) Lungs: Other Abdomen: Normal bowel sounds, Soft, No tenderness, No hepatosplenomegaly, No masses Extremities: No clubbing, No cyanosis, No edema, Normal pulses, No tenderness/ swelling Skin: No rashes, No breakdown, No significant lesion Labs LABS Laboratory Tests Test 12/22/16 12:55 12/22/16 13:22 12/22/16 20:00 12/23/16 01:48 White Blood Count 8.3x10^3/uL (4.0-11.0) Red Blood Count 5.21x10^6/uL (4.30-5.70) Hemoglobin 14.0g/dL (13.0-17.5) Hematocrit 42.9% (39.0-53.0) Mean Corpuscular Volume 82fL (79-100) Mean Corpuscular Hemoglobin 27pg (25-35) Mean Corpuscular Hemoglobin Concent 33g/dL (31-37) Red Cell Distribution Width 14.3% (11.5-14.5) Platelet Count 174x10^3/uL (140-400) Neutrophils (%) (Auto) 70% (31-73) Lymphocytes (%) (Auto) 16% (24-48) Monocytes (%) (Auto) 10% (0-9) Eosinophils (%) (Auto) 3% (0-3) Basophils (%) (Auto) 1% (0-3) Neutrophils # (Auto) 5.8x10^3uL (1.8-7.7) Lymphocytes # (Auto) 1.3x10^3/uL (1.0-4.8) Monocytes # (Auto) 0.8x10^3/uL (0.0-1.1) Eosinophils # (Auto) 0.3x10^3/uL (0.0-0.7) Basophils # (Auto) 0.1x10^3/uL (0.0-0.2) Sodium Level 130mmol/L (136-145) Potassium Level 4.6mmol/L (3.5-5.1) Chloride Level 89mmol/L (98-107) Carbon Dioxide Level 37mmol/L (21-32) Anion Gap 4 (6-14) Blood Urea Nitrogen 9mg/dL (8-26) Creatinine 0.7mg/dL (0.7-1.3) Estimated GFR (Cockcroft-Gault) 113.5 Glucose Level 106mg/dL (70-99) Calcium Level 9.7mg/dL (8.5-10.1) Troponin I Quantitative < 0.017ng/mL (0.000-0.055) < 0.017ng/mL (0.000-0.055) < 0.017ng/mL (0.000-0.055) MO-Ryk-D-Type Natriuretic Peptide 93pg/mL (0-124) O2 Saturation 96% (92-99) Arterial Blood pH 7.35 (7.35-7.45) Arterial Blood pCO2 at Patient Temp 64mmHg (35-46) Arterial Blood pO2 at Patient Temp 86mmHg (65-108) Arterial Blood HCO3 35mmol/L (21-28) Arterial Blood Base Excess 7mmol/L (-3-3) FiO2 40 Review of Systems Review of Systems liquidy stools, intermittent COnstipation, fatty stools Chronic leg edema Post nasal gtt Assessment and Plan Assessmemt and Plan Problems Medical Problems: (1) Acute respiratory distress Status: Acute (2) COPD with acute exacerbation Status: Acute Problems: Comment Review of Relevant I have reviewed the following items cindy (where applicable) has been applied. Labs Laboratory Tests Test 12/22/16 12:55 12/22/16 13:22 12/22/16 20:00 12/23/16 01:48 White Blood Count 8.3x10^3/uL (4.0-11.0) Red Blood Count 5.21x10^6/uL (4.30-5.70) Hemoglobin 14.0g/dL (13.0-17.5) Hematocrit 42.9% (39.0-53.0) Mean Corpuscular Volume 82fL (79-100) Mean Corpuscular Hemoglobin 27pg (25-35) Mean Corpuscular Hemoglobin Concent 33g/dL (31-37) Red Cell Distribution Width 14.3% (11.5-14.5) Platelet Count 174x10^3/uL (140-400) Neutrophils (%) (Auto) 70% (31-73) Lymphocytes (%) (Auto) 16% (24-48) Monocytes (%) (Auto) 10% (0-9) Eosinophils (%) (Auto) 3% (0-3) Basophils (%) (Auto) 1% (0-3) Neutrophils # (Auto) 5.8x10^3uL (1.8-7.7) Lymphocytes # (Auto) 1.3x10^3/uL (1.0-4.8) Monocytes # (Auto) 0.8x10^3/uL (0.0-1.1) Eosinophils # (Auto) 0.3x10^3/uL (0.0-0.7) Basophils # (Auto) 0.1x10^3/uL (0.0-0.2) Sodium Level 130mmol/L (136-145) Potassium Level 4.6mmol/L (3.5-5.1) Chloride Level 89mmol/L (98-107) Carbon Dioxide Level 37mmol/L (21-32) Anion Gap 4 (6-14) Blood Urea Nitrogen 9mg/dL (8-26) Creatinine 0.7mg/dL (0.7-1.3) Estimated GFR (Cockcroft-Gault) 113.5 Glucose Level 106mg/dL (70-99) Calcium Level 9.7mg/dL (8.5-10.1) Troponin I Quantitative < 0.017ng/mL (0.000-0.055) < 0.017ng/mL (0.000-0.055) < 0.017ng/mL (0.000-0.055) RU-Hhs-P-Type Natriuretic Peptide 93pg/mL (0-124) O2 Saturation 96% (92-99) Arterial Blood pH 7.35 (7.35-7.45) Arterial Blood pCO2 at Patient Temp 64mmHg (35-46) Arterial Blood pO2 at Patient Temp 86mmHg (65-108) Arterial Blood HCO3 35mmol/L (21-28) Arterial Blood Base Excess 7mmol/L (-3-3) FiO2 40 Laboratory Tests Test 12/22/16 12:55 12/22/16 13:22 12/22/16 20:00 12/23/16 01:48 White Blood Count 8.3x10^3/uL (4.0-11.0) Red Blood Count 5.21x10^6/uL (4.30-5.70) Hemoglobin 14.0g/dL (13.0-17.5) Hematocrit 42.9% (39.0-53.0) Mean Corpuscular Volume 82fL (79-100) Mean Corpuscular Hemoglobin 27pg (25-35) Mean Corpuscular Hemoglobin Concent 33g/dL (31-37) Red Cell Distribution Width 14.3% (11.5-14.5) Platelet Count 174x10^3/uL (140-400) Neutrophils (%) (Auto) 70% (31-73) Lymphocytes (%) (Auto) 16% (24-48) Monocytes (%) (Auto) 10% (0-9) Eosinophils (%) (Auto) 3% (0-3) Basophils (%) (Auto) 1% (0-3) Neutrophils # (Auto) 5.8x10^3uL (1.8-7.7) Lymphocytes # (Auto) 1.3x10^3/uL (1.0-4.8) Monocytes # (Auto) 0.8x10^3/uL (0.0-1.1) Eosinophils # (Auto) 0.3x10^3/uL (0.0-0.7) Basophils # (Auto) 0.1x10^3/uL (0.0-0.2) Sodium Level 130mmol/L (136-145) Potassium Level 4.6mmol/L (3.5-5.1) Chloride Level 89mmol/L (98-107) Carbon Dioxide Level 37mmol/L (21-32) Anion Gap 4 (6-14) Blood Urea Nitrogen 9mg/dL (8-26) Creatinine 0.7mg/dL (0.7-1.3) Estimated GFR (Cockcroft-Gault) 113.5 Glucose Level 106mg/dL (70-99) Calcium Level 9.7mg/dL (8.5-10.1) Troponin I Quantitative < 0.017ng/mL (0.000-0.055) < 0.017ng/mL (0.000-0.055) < 0.017ng/mL (0.000-0.055) CG-Ryo-R-Type Natriuretic Peptide 93pg/mL (0-124) O2 Saturation 96% (92-99) Arterial Blood pH 7.35 (7.35-7.45) Arterial Blood pCO2 at Patient Temp 64mmHg (35-46) Arterial Blood pO2 at Patient Temp 86mmHg (65-108) Arterial Blood HCO3 35mmol/L (21-28) Arterial Blood Base Excess 7mmol/L (-3-3) FiO2 40 Medications Current Medications Methylprednisolone Sodium Succinate (Solu-Medrol 125mg Vial) 125 mg 1X ONCE IV Last administered on 12/22/16t 13:14; Start 12/22/16 at 13:00; Stop 12/22/16 at 13:01; Status DC Albuterol/ Ipratropium 3 ml 3 ml 1X ONCE NEB Last administered on 12/22/16 13 :36; Start 12/22/16 at 13:00; Stop 12/22/16 at 13:01; Status DC Sodium Chloride (Iv Sodium Chloride 0.9% 500ml Bag) 500 ml @ 500 mls/hr 1X ONCE IV Last administered on 12/22/16 13:15; Start 12/22/16 at 13:00; Stop at 13:59; Status DC Lorazepam (Ativan) 0.5 mg 1X ONCE IV Last administered on 12/22/16 13:14; Start 12/22/16 at 13:00; Stop 12/22/16 at 13:01; Status DC Ondansetron HCl 4 mg 4 mg PRN Q8HRS PRN IV NAUSEA/VOMITING; Start 12/22/16 at 13:45; Stop 12/22/16 at 15:07; Status DC Sodium Chloride (Iv Sodium Chloride 0.9% 1000ml Bag) 1,000 ml @ 100 mls/hr Q10H IV Last administered on 12/23/16 09:53; Start 12/22/16 at 14:00; Stop at 13:59 Acetaminophen (Tylenol) 650 mg PRN Q4HRS PRN PO FEVER; Start 12/22/16 at 13:45 ; Stop 12/23/16 at 13:44 Ondansetron HCl (Zofran) 4 mg PRN Q6HRS PRN IV NAUSEA/VOMITING; Start 12/22/16 at 15:05 Guaifenesin (Mucinex) 600 mg BID PO Last administered on 12/23/16 08:30; Start 12/22/16 at 21:00 Guaifenesin (Robitussin Dm) 10 ml PRN QID PRN PO COUGH; Start 12/22/16 at 17:00 Albuterol/ Ipratropium (Duoneb) 3 ml RTQID NEB Last administered on 12/22/16 20:39; Start 12/22/16 at 16:00; Stop 12/23/16 at 00:57; Status DC Aspirin (Yolette Aspirin) 325 mg DAILY PO Last administered on 12/23/16 08:28; Start 12/22/16 at 16:00 Throat Lozenges (Cepacol Sore Throat Lozenge) 1 analia PRN Q2HRS PRN PO SORE THROAT; Start 12/22/16 at 15:15 Benzonatate (Tessalon Perle) 100 mg PRN TID PRN PO COUGH; Start 12/22/16 at 15: 15 Diltiazem HCl (Cardizem 24hr Cd) 240 mg DAILY PO Last administered on 08:29; Start 12/22/16 at 16:00 Furosemide (Lasix) 40 mg DAILY PO Last administered on 12/23/16 08:29; Start 12/22/16 at 16:00 Losartan Potassium (Cozaar) 100 mg DAILY PO Last administered on 12/23/16 08: 28; Start 12/22/16 at 16:00 Tamsulosin HCl (Flomax) 0.4 mg DAILY PO Last administered on 12/23/16 08:29; Start 12/22/16 at 16:00 Pantoprazole Sodium (Protonix) 40 mg DAILYAC PO Last administered on 12/23/16 08:29; Start 12/23/16 at 07:30 Atorvastatin Calcium (Lipitor) 5 mg QHS PO Last administered on 12/22/16 20:59 ; Start 12/22/16 at 21:00 Hydralazine HCl (Apresoline) 10 mg PRN Q4HRS PRN IVP ELEVATED BP, SEE COMMENTS ; Start 12/22/16 at 15:15 Famotidine (Pepcid) 20 mg BID IVP ; Start 12/22/16 at 21:00; Status UNV Enoxaparin Sodium (Lovenox 40mg Syringe) 40 mg Q24H SQ Last administered on 21:00; Start 12/22/16 at 16:00 Cetirizine HCl (Zyrtec) 10 mg DAILY PO Last administered on 12/23/16 08:29; Start 12/23/16 at 09:00 Fluticasone Propionate (Flonase) 2 spray DAILY NS Last administered on 08:30; Start 12/23/16 at 09:00 Scopolamine (Transderm-Scop) 1 patch Q3DAYS TD Last administered on 12/22/16 20:59; Start 12/22/16 at 21:00 Alprazolam (Xanax) 0.5 mg PRN Q6HRS PRN PO ANXIETY / AGITATION Last administered on 12/22/16 20:59; Start 12/22/16 at 20:45 Albuterol/ Ipratropium (Duoneb) 3 ml Q4HRS NEB Last administered on 12/23/16 09:03; Start 12/23/16 at 04:00 Albuterol/ Ipratropium (Duoneb) 3 ml 1X ONCE NEB Last administered on 01:22; Start 12/23/16 at 01:30; Stop 12/23/16 at 01:31; Status DC Active Scripts Active Cepacol Sore Throat Lozenge (Benzocaine/Menthol) 1 Each Lozenge 1 Analia PO PRN Q2HRS PRN Benzonatate 100 Mg Capsule 100 Mg PO TID PRN Promethazine-Codeine Syrup (Promethazine Hcl/Codeine) 118 Ml Syrup 5 Ml PO PRN Q4HRS PRN Mucinex (Guaifenesin) 600 Mg Tablet.er 1 Tab PO BID Reported Zyrtec (Cetirizine Hcl) 10 Mg Tablet 1 Tab PO DAILY Xanax (Alprazolam) 0.5 Mg Tablet 0.5 Mg PO PRN Q6HRS PRN Robitussin Cough-Chest Dm Liq (Guaifenesin/Dextromethorphan) 118 Ml Liquid 118 Ml PO Transderm-Scop (Scopolamine) 1 Each Patch.td72 1 Patch TP Q3DAYS Protonix (Pantoprazole Sodium) 40 Mg Granpkt.dr 40 Mg PO DAILY Lipitor (Atorvastatin Calcium) 10 Mg Tablet 0.5 Tab PO QHS Potassium Chloride 20 Meq Tablet.er 20 Meq PO DAILY Aspirin 325 Mg Tablet 1 Tab PO DAILY Aldactone (Spironolactone) 50 Mg Tablet 1 Tab PO DAILY Guaifenesin Dm Syrup (Guaifenesin/Dextromethorphan) 5 Ml Syrup 10 Ml PO PRN Q6HRS PRN Flonase Allergy Relief (Fluticasone Propionate) 9.9 Ml [place].susp 2 Sprays NS DAILY Cardizem Cd (Diltiazem Hcl) 240 Mg Cap.er.24h 1 Cap PO DAILY Albuterol Sulfate Neb Soln (Albuterol Sulfate) 2.5 Mg/3 Ml Vial.neb 1 Vial NEB PRN Q2HRS PRN Aspirin 325 Mg Tablet 1 Tab PO DAILY Duoneb 0.5-3(2.5) Mg/3 Ml (Albuterol/Ipratropium) 3 Ml Ampul.neb 3 Ml IH Q4HRS Symbicort 160-4.5 Mcg Inhaler (Budesonide/Formoterol Fumarate) 10.2 Gm Hfa.aer.ad 2 Puff IH BID Furosemide 40 Mg Tablet 80 Mg PO DAILY Nexium Capsule (Esomeprazole Magnesium) 40 Mg Capsule.dr 40 Mg PO DAILY Lovastatin 20 Mg Tablet 20 Mg PO DAILY Tamsulosin Hcl 0.4 Mg Cap.er.24h 0.4 Mg PO DAILY Losartan Potassium 50 Mg Tablet 100 Mg PO DAILY Vitals/I & O Vital Sign - Last 24 Hours 12/22/16 12/22/16 12/22/16 12/22/16 12:50 13:15 13:15 14:18 Temp 98.0 98.0 Pulse 113 113 104 Resp 30 30 30 B/P 90/55 155/110 135/81 Pulse Ox 100 100 97 100 O2 Delivery BiPAP/CPAP Bag Valve Mask BiPAP/CPAP BiPAP/CPAP O2 Flow Rate 10 12/22/16 12/22/16 12/22/16 12/22/16 14:58 15:00 16:00 16:00 Temp 98.4 98.4 Pulse 98 90 Resp 28 30 B/P 132/83 105/70 Pulse Ox 95 96 91 O2 Delivery BiPAP/CPAP BiPAP/CPAP Bi-pap 12/22/16 12/22/16 12/22/16 12/22/16 16:56 17:00 18:00 19:00 Pulse 86 84 82 Resp 28 26 B/P 121/82 131/84 126/78 Pulse Ox 93 96 96 93 O2 Delivery Venturi Mask Nasal Cannula Nasal Cannula O2 Flow Rate 15.0 4.0 4.0 12/22/16 12/22/16 12/22/16 12/22/16 20:00 20:00 20:00 20:41 Temp 98.2 98.2 Pulse 86 Resp 32 B/P 134/84 Pulse Ox 90 96 O2 Delivery Nasal Cannula Nasal Cannula BiPAP/CPAP O2 Flow Rate 4.0 4.0 4.0 12/22/16 12/22/16 12/22/16 12/22/16 21:00 22:00 23:00 23:09 Pulse 84 90 76 Resp 25 23 23 B/P 121/74 119/76 119/76 Pulse Ox 96 96 92 90 O2 Delivery Nasal Cannula BiPAP/CPAP BiPAP/CPAP BiPAP/CPAP O2 Flow Rate 6.0 12/22/16 12/23/16 12/23/16 12/23/16 23:59 00:00 00:00 01:00 Temp 98.9 98.9 Pulse 72 72 Resp 24 20 B/P 124/85 122/84 Pulse Ox 94 96 O2 Delivery Bi-pap BiPAP/CPAP BiPAP/CPAP O2 Flow Rate 6.0 12/23/16 12/23/16 12/23/16 12/23/16 01:23 02:00 03:00 03:36 Pulse 76 74 Resp 21 23 B/P 121/84 150/90 Pulse Ox 95 93 96 95 O2 Delivery BiPAP/CPAP Nasal Cannula Nasal Cannula BiPAP/CPAP O2 Flow Rate 6.0 6.0 12/23/16 12/23/16 12/23/16 12/23/16 04:00 04:00 04:00 05:00 Temp 98.0 98.0 Pulse 68 64 Resp 23 18 B/P 140/90 131/90 Pulse Ox 95 90 O2 Delivery BiPAP/CPAP Bi-pap BiPAP/CPAP O2 Flow Rate 6.0 12/23/16 12/23/16 12/23/16 12/23/16 06:00 06:12 07:00 07:22 Temp 98.6 98.6 Pulse 64 24 Resp 23 24 B/P 146/91 148/92 Pulse Ox 94 95 91 O2 Delivery BiPAP/CPAP BiPAP/CPAP BiPAP/CPAP O2 Flow Rate 6.0 12/23/16 12/23/16 12/23/16 12/23/16 07:33 08:28 08:29 09:03 Pulse 24 24 B/P 148/92 148/92 Pulse Ox 92 O2 Delivery Bi-pap Nasal Cannula O2 Flow Rate 4.0 4.0 Intake and Output 12/22/16 12/22/16 12/23/16 15:00 23:00 07:00 Intake Total 525 ml 330 ml 1039 ml Output Total 1450 ml 1950 ml 530 ml Balance -925 ml -1620 ml 509 ml DAVID KEBEDE MD Dec 23, 2016 10:35
--- NOTE | 2016-12-23 12:43 | PDOC2 ---
GI CONSULT Reason For Consult: Stool changes, due for colonoscopy HPI: HPI: 66 y/o male admitted w/ COPD exacerbation, followed by pulm. He reports he has noted a change in his bowel habits since 06/2016. Changes began w/o precipitating events. He used to have regular, formed stools. Now he has increased gas, some lower abd pressure (not pain), stools "shoot out," sometimes they are clear, sometimes they are liquidy yellow, sometimes they are "thin pieces," sometimes they are regular, and sometimes they are "pellets." He averages about two stools daily and does take probiotics at home. H/o recurrent lung issues; has taken a lot of antibiotics. Throughout recurrent hospitalizations and rehab stays, has lost weight and noted he doesn't eat as much. Instead of a whole pizza, now he just has 1-2 pieces. When eating fried chicken, he just has 1 breast piece. H/o GERD controlled w/ medication. Reports previous EGD w/ Dr. Alexandra that showed irritation in his esophagus and previous colonoscopies w/ benign polyps (although says last colonoscopy 2-3 years ago was normal). He prefers to have colonoscopies every 2 years. PMH: PMH: COPD, A Fib, CAD, HTN, HLD, GERD, colon polyps, BPH, back pain, depression/ anxiety, skin cancer, right shoulder surgery, right knee surgery, three back surgeries FH: Family History: Cancer (father - rectal cancer) Social History: Smoke: Quit ALCOHOL: none (previously drank) Drugs: None ROS: GEN: Denies fevers, chills, sweats HEENT: Denies blurred vision, sore throat CV: Denies chest pain RESP: +SOA, cough, phlegm GI: Per HPI : Denies hematuria, dysuria ENDO: +weight loss NEURO: Denies confusion, dizziness MSK: +leg swelling SKIN: Denies jaundice, pruritus VItals: Vitals: Vital Signs Date Time Temp Pulse Resp B/P Pulse Ox O2 Delivery O2 Flow Rate FiO2 12/23/16 11:00 97.7 100 18 135/74 90 Nasal Cannula 4.0 97.7 Labs: Labs: Laboratory Tests Test 12/22/16 12:55 12/22/16 13:22 12/22/16 15:30 12/22/16 20:00 White Blood Count 8.3x10^3/uL (4.0-11.0) Red Blood Count 5.21x10^6/uL (4.30-5.70) Hemoglobin 14.0g/dL (13.0-17.5) Hematocrit 42.9% (39.0-53.0) Mean Corpuscular Volume 82fL (79-100) Mean Corpuscular Hemoglobin 27pg (25-35) Mean Corpuscular Hemoglobin Concent 33g/dL (31-37) Red Cell Distribution Width 14.3% (11.5-14.5) Platelet Count 174x10^3/uL (140-400) Neutrophils (%) (Auto) 70% (31-73) Lymphocytes (%) (Auto) 16% (24-48) Monocytes (%) (Auto) 10% (0-9) Eosinophils (%) (Auto) 3% (0-3) Basophils (%) (Auto) 1% (0-3) Neutrophils # (Auto) 5.8x10^3uL (1.8-7.7) Lymphocytes # (Auto) 1.3x10^3/uL (1.0-4.8) Monocytes # (Auto) 0.8x10^3/uL (0.0-1.1) Eosinophils # (Auto) 0.3x10^3/uL (0.0-0.7) Basophils # (Auto) 0.1x10^3/uL (0.0-0.2) Sodium Level 130mmol/L (136-145) Potassium Level 4.6mmol/L (3.5-5.1) Chloride Level 89mmol/L (98-107) Carbon Dioxide Level 37mmol/L (21-32) Anion Gap 4 (6-14) Blood Urea Nitrogen 9mg/dL (8-26) Creatinine 0.7mg/dL (0.7-1.3) Estimated GFR (Cockcroft-Gault) 113.5 Glucose Level 106mg/dL (70-99) Calcium Level 9.7mg/dL (8.5-10.1) Troponin I Quantitative < 0.017ng/mL (0.000-0.055) < 0.017ng/mL (0.000-0.055) HE-Xwa-T-Type Natriuretic Peptide 93pg/mL (0-124) O2 Saturation 96% (92-99) Arterial Blood pH 7.35 (7.35-7.45) Arterial Blood pCO2 at Patient Temp 64mmHg (35-46) Arterial Blood pO2 at Patient Temp 86mmHg (65-108) Arterial Blood HCO3 35mmol/L (21-28) Arterial Blood Base Excess 7mmol/L (-3-3) FiO2 40 Nasal Screen MRSA (PCR) Positive (Negative) Test 12/23/16 01:48 Troponin I Quantitative < 0.017ng/mL (0.000-0.055) Allergies: Coded Allergies: oxycodone (Verified Allergy, Intermediate, Shortness of Air, 05/30/16) problems with increased CO2 levels with his COPD Medications: Current Medications Medications (Trade) Dose Ordered Sig/Hesham Route PRN Reason Start Time Stop Time Status Last Admin Dose Admin Methylprednisolone Sodium Succinate (Solu-Medrol 125mg Vial) 125 mg 1X ONCE IV 12/22/16 13:00 12/22/16 13:01 DC 12/22/16 13:14 Albuterol/ Ipratropium 3 ml 3 ml 1X ONCE NEB 12/22/16 13:00 12/22/16 13:01 DC 12/22/16 13:36 Sodium Chloride (Iv Sodium Chloride 0.9% 500ml Bag) 500 ml @ 500 mls/hr 1X ONCE IV 12/22/16 13:00 12/22/16 13:59 DC 12/22/16 13:15 Lorazepam 0.5 mg 0.5 mg 1X ONCE IV 12/22/16 13:00 12/22/16 13:01 DC 12/22/16 13:14 Sodium Chloride (Iv Sodium Chloride 0.9% 1000ml Bag) 1,000 ml @ 100 mls/hr Q10H IV 12/22/16 14:00 12/23/16 10:32 DC 12/23/16 09:53 Guaifenesin (Mucinex) 600 mg BID PO 12/22/16 21:00 12/23/16 08:30 Albuterol/ Ipratropium (Duoneb) 3 ml RTQID NEB 12/22/16 16:00 12/23/16 00:57 DC 12/22/16 20:39 Aspirin (Yolette Aspirin) 325 mg DAILY PO 12/22/16 16:00 12/23/16 08:28 Diltiazem HCl (Cardizem 24hr Cd) 240 mg DAILY PO 12/22/16 16:00 12/23/16 08:29 Furosemide (Lasix) 40 mg DAILY PO 12/22/16 16:00 12/23/16 10:32 DC 12/23/16 08:29 Losartan Potassium (Cozaar) 100 mg DAILY PO 12/22/16 16:00 12/23/16 08:28 Tamsulosin HCl (Flomax) 0.4 mg DAILY PO 12/22/16 16:00 12/23/16 08:29 Pantoprazole Sodium (Protonix) 40 mg DAILYAC PO 12/23/16 07:30 12/23/16 08:29 Atorvastatin Calcium (Lipitor) 5 mg QHS PO 12/22/16 21:00 12/22/16 20:59 Enoxaparin Sodium (Lovenox 40mg Syringe) 40 mg Q24H SQ 12/22/16 16:00 12/22/16 21:00 Cetirizine HCl (Zyrtec) 10 mg DAILY PO 12/23/16 09:00 12/23/16 08:29 Fluticasone Propionate (Flonase) 2 spray DAILY NS 12/23/16 09:00 12/23/16 08:30 Scopolamine (Transderm-Scop) 1 patch Q3DAYS TD 12/22/16 21:00 12/22/16 20:59 Alprazolam (Xanax) 0.5 mg PRN Q6HRS PRN PO ANXIETY / AGITATION 12/22/16 20:45 12/22/16 20:59 Albuterol/ Ipratropium (Duoneb) 3 ml Q4HRS NEB 12/23/16 04:00 12/23/16 09:03 Albuterol/ Ipratropium (Duoneb) 3 ml 1X ONCE NEB 12/23/16 01:30 12/23/16 01:31 DC 12/23/16 01:22 Imaging: Imaging: CXR 12/22/16 IMPRESSION: 1. Stable diffuse interstitial prominence superimposed on emphysema. There is no consolidated infiltrate. 2. Stable left basilar pleural thickening. PE: GEN: NAD, up to chair HEENT: Atraumatic, PERRL LUNGS: decreased/tight/poor air movement anteriorly, nasal cannula HEART: S1S2 ABD: NABS, S/ND/NT EXTREMITY: BLE edema SKIN: No rashes, no jaundice NEURO/PSYCH: A & O 3 OTHER: present A/P: A/P: Change in bowel habits/irregular bowel habits -onset 06/2016 w/o precipitating events, has been on a lot of antibiotics for chronic lung issues CRC screen, h/o colon polyps, FH rectal cancer -last colonoscopy w/ Dr. Alexandra 2-3 years ago reportedly normal -prefers to have colonoscopies every 2 years GERD -improved on PPI, reports previous EGD w/ Dr. Alexandra Weight loss, decreased appetite COPD exacerbation -- Will review w/ Dr. Reynolds. CHARLENE NICHOLAS Dec 23, 2016 12:43
--- NOTE | 2016-12-23 15:26 | CONS ---
DATE OF CONSULTATION: 12/23/2016 ATTENDING PHYSICIAN: Dr. Triana. REASON FOR CONSULTATION: The patient seen in pulmonary consultation at the request of Dr. Triana for [id number] respiratory failure requiring noninvasive ventilation. HISTORY OF PRESENT ILLNESS: The patient is a 66-year-old male well known to me from previous hospitalization and outpatient clinic. He normally wears 4 liters of oxygen supplementation. The patient presented to the Emergency Room with acute onset of shortness of air. EMS was summoned, send to the scene, he had saturations of 80%. The patient was bagged multiple times at the scene. He was then transferred to the Emergency Department. Upon arrival to the Emergency Department, blood gas revealed a pH of 7.3, paCO2 of 63, pO2 of 80 on BiPAP. The patient initially was severely short of breath, unable to complete full sentences. This morning, he is feeling better. I took off the BiPAP. He states that he has had no recent environmental, occupational exposures, no inhalation of any toxic fumes or dust. No fever or chills. He was having some difficulty with coughing up some thick sputum. Otherwise, no nausea, vomiting, diarrhea. PAST MEDICAL HISTORY: Chronic respiratory failure, AFib, COPD, chronic interstitial lung disease, hypertension. PAST SURGICAL HISTORY: Status post colectomy, back surgery, shoulder surgery. ALLERGIES: Oxycodone. MEDICATIONS: Current medication list was reviewed. Home medication list was likewise reviewed. REVIEW OF SYSTEMS: As indicated above, otherwise, a 10-point system was reviewed and negative. CONSTITUTIONAL: No fever or chills. EYES: No changes in visual acuity. HENT: No nasal congestion or sore throat. RESPIRATORY: As indicated above. CARDIOVASCULAR: No chest pain or pressure. GASTROINTESTINAL: No nausea, vomiting, or diarrhea. GENITOURINARY: No dysuria or frequency. MUSCULOSKELETAL: Chronic pain. No new pain. SKIN: No new skin rashes. PHYSICAL EXAMINATION: VITAL SIGNS: The patient was in the intensive care unit on BiPAP. He has been afebrile. His saturation currently is greater than 92%. HEENT: Eyes, the sclerae were nonicteric. NECK: Jugular venous distention was not elevated. No lymphadenopathy. CHEST: Full expansion. LUNGS: Poor airway flow, no wheezes. CARDIOVASCULAR: Regular rate and rhythm with S1, S2, no S3. ABDOMEN: Soft, nontender, nondistended. EXTREMITIES: No clubbing, cyanosis or edema. NEUROLOGIC: The patient was awake, alert, following commands. A detailed neuro exam was not performed. LABORATORY DATA: Reviewed. White count was normal. Hemoglobin and hematocrit were noted. Arterial blood gas; pH of 7.35, paCO2 of 64, pO2 of 86. Electrolytes were within range. Sodium was low. Potassium was normal. Total CO2 was elevated. Chest x-ray: No acute infiltrates. IMPRESSION: 1. Jgvqz-jr-gnpsqdz hypoxemic hypercapnic respiratory failure. 2. Acute exacerbation of chronic obstructive pulmonary disease. 3. Acute nonspecific bronchitis. 4. Chronic interstitial lung disease/emphysema. 5. History of tobacco dependence. 6. Chronic atrial fibrillation. 7. Obesity. 8. Chronic lower extremity edema, suspect chronic cor pulmonale. PLAN: 1. Continue current BiPAP. 2. IV steroids. 3. Resume home medications. 4. No need for antibiotics. 5. DVT and GI prophylaxis. 6. Nebulized treatments . I do appreciate the privilege in sharing in the patient's care. Total cumulative critical care time of 40 minutes. GABY RAMSEY MD DR: DEE/ramin JOB#: [id number] / [id number]
[2016-12-23] MEDS: ENOXAPARIN 40 MG/0.4 ML DISP.SYRIN. SQ SCH (16:00)
[2016-12-23] MEDS: ALPRAZOLAM 0.5 MG TABLET PO PRN (21:14)
[2016-12-23] MEDS: ATORVASTATIN CALCIUM 10 MG TABLET. PO SCH (21:15)
[2016-12-24] VITALS (9 sets, daily range): BP systolic 80–117; BP diastolic 33–65
[2016-12-24] MEDS: IPRATRPIUM/ALBUTEROL 0.5/2.5MG 3 ML NEBU. NEB SCH ×6 (03:36→23:37)
[2016-12-24 04:07] LABS: BASO # 0.1 x10^3/uL (0.0-0.2); BASO % 1 % (0-3); EOS % 1 % (0-3); HEMATOCRIT 38.8 % (39.0-53.0); HEMOGLOBIN 12.5 g/dL (13.0-17.5); LYMPH # 1.7 x10^3/uL (1.0-4.8); LYMPH % 18 % (24-48); MEAN CORPUSCULAR HEMOGLOBIN 27 pg (25-35); MEAN CORPUSCULAR HGB CONC 32 g/dL (31-37); MEAN CORPUSCULAR VOLUME 84 fL (79-100); MONO % 10 % (0-9); NEUT % 71 % (31-73); PLATELET COUNT 162 x10^3/uL (140-400); RED BLOOD COUNT 4.65 x10^6/uL (4.30-5.70); RED CELL DISTRIBUTION WIDTH 14.4 % (11.5-14.5); WHITE BLOOD COUNT 9.8 x10^3/uL (4.0-11.0)
[2016-12-24 04:27] LABS: CALCIUM 8.5 mg/dL (8.5-10.1); CREATININE 0.7 mg/dL (0.7-1.3); GFR 113.5; POTASSIUM 3.3 mmol/L (3.5-5.1)
--- NOTE | 2016-12-24 07:05 | PDOC ---
PULMONARY PROGRESS NOTES Subjective Pt feels better off BIPAP Vitals Vital Signs Date Time Temp Pulse Resp B/P Pulse Ox O2 Delivery O2 Flow Rate FiO2 12/24/16 03:00 97.7 74 20 97/53 96 Nasal Cannula 4.0 97.7 ROS: No Nausea, No Chest Pain, No Abdominal Pain, No Increase Cough General: Alert, No acute distress Lungs: Clear Cardiovascular: S1, S2 Abdomen: Soft, Non-tender Neuro Exam: Alert Extremities: No Edema, Other Skin: Warm Labs Laboratory Tests Test 12/22/16 12:55 12/22/16 13:22 12/22/16 15:30 12/22/16 20:00 White Blood Count 8.3x10^3/uL (4.0-11.0) Red Blood Count 5.21x10^6/uL (4.30-5.70) Hemoglobin 14.0g/dL (13.0-17.5) Hematocrit 42.9% (39.0-53.0) Mean Corpuscular Volume 82fL (79-100) Mean Corpuscular Hemoglobin 27pg (25-35) Mean Corpuscular Hemoglobin Concent 33g/dL (31-37) Red Cell Distribution Width 14.3% (11.5-14.5) Platelet Count 174x10^3/uL (140-400) Neutrophils (%) (Auto) 70% (31-73) Lymphocytes (%) (Auto) 16% (24-48) Monocytes (%) (Auto) 10% (0-9) Eosinophils (%) (Auto) 3% (0-3) Basophils (%) (Auto) 1% (0-3) Neutrophils # (Auto) 5.8x10^3uL (1.8-7.7) Lymphocytes # (Auto) 1.3x10^3/uL (1.0-4.8) Monocytes # (Auto) 0.8x10^3/uL (0.0-1.1) Eosinophils # (Auto) 0.3x10^3/uL (0.0-0.7) Basophils # (Auto) 0.1x10^3/uL (0.0-0.2) Sodium Level 130mmol/L (136-145) Potassium Level 4.6mmol/L (3.5-5.1) Chloride Level 89mmol/L (98-107) Carbon Dioxide Level 37mmol/L (21-32) Anion Gap 4 (6-14) Blood Urea Nitrogen 9mg/dL (8-26) Creatinine 0.7mg/dL (0.7-1.3) Estimated GFR (Cockcroft-Gault) 113.5 Glucose Level 106mg/dL (70-99) Calcium Level 9.7mg/dL (8.5-10.1) Troponin I Quantitative < 0.017ng/mL (0.000-0.055) < 0.017ng/mL (0.000-0.055) KT-Lum-A-Type Natriuretic Peptide 93pg/mL (0-124) O2 Saturation 96% (92-99) Arterial Blood pH 7.35 (7.35-7.45) Arterial Blood pCO2 at Patient Temp 64mmHg (35-46) Arterial Blood pO2 at Patient Temp 86mmHg (65-108) Arterial Blood HCO3 35mmol/L (21-28) Arterial Blood Base Excess 7mmol/L (-3-3) FiO2 40 Nasal Screen MRSA (PCR) Positive (Negative) Test 12/23/16 01:48 12/24/16 03:05 Troponin I Quantitative < 0.017ng/mL (0.000-0.055) White Blood Count 9.8x10^3/uL (4.0-11.0) Red Blood Count 4.65x10^6/uL (4.30-5.70) Hemoglobin 12.5g/dL (13.0-17.5) Hematocrit 38.8% (39.0-53.0) Mean Corpuscular Volume 84fL (79-100) Mean Corpuscular Hemoglobin 27pg (25-35) Mean Corpuscular Hemoglobin Concent 32g/dL (31-37) Red Cell Distribution Width 14.4% (11.5-14.5) Platelet Count 162x10^3/uL (140-400) Neutrophils (%) (Auto) 71% (31-73) Lymphocytes (%) (Auto) 18% (24-48) Monocytes (%) (Auto) 10% (0-9) Eosinophils (%) (Auto) 1% (0-3) Basophils (%) (Auto) 1% (0-3) Neutrophils # (Auto) 6.9x10^3uL (1.8-7.7) Lymphocytes # (Auto) 1.7x10^3/uL (1.0-4.8) Monocytes # (Auto) 1.0x10^3/uL (0.0-1.1) Eosinophils # (Auto) 0.0x10^3/uL (0.0-0.7) Basophils # (Auto) 0.1x10^3/uL (0.0-0.2) Sodium Level 135mmol/L (136-145) Potassium Level 3.3mmol/L (3.5-5.1) Chloride Level 97mmol/L (98-107) Carbon Dioxide Level 34mmol/L (21-32) Anion Gap 4 (6-14) Blood Urea Nitrogen 15mg/dL (8-26) Creatinine 0.7mg/dL (0.7-1.3) Estimated GFR (Cockcroft-Gault) 113.5 Glucose Level 138mg/dL (70-99) Calcium Level 8.5mg/dL (8.5-10.1) Laboratory Tests Test 12/24/16 03:05 White Blood Count 9.8x10^3/uL (4.0-11.0) Red Blood Count 4.65x10^6/uL (4.30-5.70) Hemoglobin 12.5g/dL (13.0-17.5) Hematocrit 38.8% (39.0-53.0) Mean Corpuscular Volume 84fL (79-100) Mean Corpuscular Hemoglobin 27pg (25-35) Mean Corpuscular Hemoglobin Concent 32g/dL (31-37) Red Cell Distribution Width 14.4% (11.5-14.5) Platelet Count 162x10^3/uL (140-400) Neutrophils (%) (Auto) 71% (31-73) Lymphocytes (%) (Auto) 18% (24-48) Monocytes (%) (Auto) 10% (0-9) Eosinophils (%) (Auto) 1% (0-3) Basophils (%) (Auto) 1% (0-3) Neutrophils # (Auto) 6.9x10^3uL (1.8-7.7) Lymphocytes # (Auto) 1.7x10^3/uL (1.0-4.8) Monocytes # (Auto) 1.0x10^3/uL (0.0-1.1) Eosinophils # (Auto) 0.0x10^3/uL (0.0-0.7) Basophils # (Auto) 0.1x10^3/uL (0.0-0.2) Sodium Level 135mmol/L (136-145) Potassium Level 3.3mmol/L (3.5-5.1) Chloride Level 97mmol/L (98-107) Carbon Dioxide Level 34mmol/L (21-32) Anion Gap 4 (6-14) Blood Urea Nitrogen 15mg/dL (8-26) Creatinine 0.7mg/dL (0.7-1.3) Estimated GFR (Cockcroft-Gault) 113.5 Glucose Level 138mg/dL (70-99) Calcium Level 8.5mg/dL (8.5-10.1) Medications Active Scripts Medications Dose Route/Sig Days Date Category Zyrtec (Cetirizine Hcl) 10 Mg Tablet 1 Tab PO DAILY 12/22/16 Reported Xanax (Alprazolam) 0.5 Mg Tablet 0.5 Mg PO PRN Q6HRS PRN 12/22/16 Reported Robitussin Cough-Chest Dm Liq (Guaifenesin/Dextromethorphan) 118 Ml Liquid 118 Ml PO 12/22/16 Reported Transderm-Scop (Scopolamine) 1 Each Patch.td72 1 Patch TP Q3DAYS 12/22/16 Reported Protonix (Pantoprazole Sodium) 40 Mg Granpkt.dr 40 Mg PO DAILY 12/22/16 Reported Lipitor (Atorvastatin Calcium) 10 Mg Tablet 0.5 Tab PO QHS 12/22/16 Reported Potassium Chloride 20 Meq Tablet.er 20 Meq PO DAILY 12/22/16 Reported Aspirin 325 Mg Tablet 1 Tab PO DAILY 12/22/16 Reported Aldactone (Spironolactone) 50 Mg Tablet 1 Tab PO DAILY 12/22/16 Reported Guaifenesin Dm Syrup (Guaifenesin/Dextromethorphan) 5 Ml Syrup 10 Ml PO PRN Q6HRS PRN 06/01/16 Reported Flonase Allergy Relief (Fluticasone Propionate) 9.9 Ml [place].susp 2 Sprays NS DAILY 06/01/16 Reported Cardizem Cd (Diltiazem Hcl) 240 Mg Cap.er.24h 1 Cap PO DAILY 06/01/16 Reported Albuterol Sulfate Neb Soln (Albuterol Sulfate) 2.5 Mg/3 Ml Vial.neb 1 Vial NEB PRN Q2HRS PRN 06/01/16 Reported Aspirin 325 Mg Tablet 1 Tab PO DAILY 06/01/16 Reported Cepacol Sore Throat Lozenge (Benzocaine/Menthol) 1 Each Lozenge 1 Analia PO PRN Q2HRS PRN 04/23/16 Rx Benzonatate 100 Mg Capsule 100 Mg PO TID PRN 04/23/16 Rx Promethazine-Codeine Syrup (Promethazine Hcl/Codeine) 118 Ml Syrup 5 Ml PO PRN Q4HRS PRN 04/23/16 Rx Duoneb 0.5-3(2.5) Mg/3 Ml (Albuterol/Ipratropium) 3 Ml Ampul.neb 3 Ml IH Q4HRS 10/25/15 Reported Symbicort 160-4.5 Mcg Inhaler (Budesonide/Formoterol Fumarate) 10.2 Gm Hfa.aer.ad 2 Puff IH BID 08/11/15 Reported Furosemide 40 Mg Tablet 40 Mg PO DAILY 08/11/15 Reported Mucinex (Guaifenesin) 600 Mg Tablet.er 1 Tab PO BID 11/23/14 Rx Nexium Capsule (Esomeprazole Magnesium) 40 Mg Capsule.dr 40 Mg PO DAILY 01/18/14 Reported Lovastatin 20 Mg Tablet 20 Mg PO DAILY 01/18/14 Reported Tamsulosin Hcl 0.4 Mg Cap.er.24h 0.4 Mg PO DAILY 01/18/14 Reported Losartan Potassium 50 Mg Tablet 100 Mg PO DAILY 01/18/14 Reported Impression . 1. Mtywi-nn-zcjszzd hypoxemic hypercapnic respiratory failure. 2. Acute exacerbation of chronic obstructive pulmonary disease. 3. Acute nonspecific bronchitis. 4. Chronic interstitial lung disease/emphysema. 5. History of tobacco dependence. 6. Chronic atrial fibrillation. 7. Obesity. 8. Chronic lower extremity edema, suspect chronic cor pulmonale. Plan . 1. PRN BIPAP, UP to chair possible home in 24-48 hours 2. IV steroids. 3. Resume home medications. 4. No need for antibiotics. 5. DVT and GI prophylaxis. 6. Nebulized treatments . GABY RAMSEY MD Dec 24, 2016 07:05
[2016-12-24] MEDS ORDERED: ALBUTEROL SULFATE 2.5 MG/3 ML NEBU. NEB PRN (08:00)
[2016-12-24] MEDS: FLUTICASONE 50MCG/NASAL SPRAY 16GM BOTTLE. NS SCH (08:16)
[2016-12-24] MEDS: TAMSULOSIN 0.4 MG CAP.ER.24H. PO SCH (08:16)
[2016-12-24] MEDS: CETIRIZINE HCL 10 MG TABLET PO SCH (08:16)
[2016-12-24] MEDS: PANTOPRAZOLE 40 MG TABLET. PO SCH (08:16)
[2016-12-24] MEDS: GUAIFENESIN ER 600 MG TABLET.ER PO SCH ×2 (08:16→20:02)
[2016-12-24] MEDS: ASPIRIN 325 MG TABLET PO SCH (08:16)
[2016-12-24] MEDS: FUROSEMIDE 40 MG TABLET PO SCH (08:16)
[2016-12-24] MEDS: LOSARTAN POTASSIUM 50 MG TABLET. PO SCH (08:20)
[2016-12-24] MEDS: DILTIAZEM HCL 240 MG CAP.ER.24H PO SCH (08:20)
[2016-12-24] MEDS ORDERED: POTASSIUM CHLORIDE 20 MEQ TABLET.ER. PO ONE (09:00)
--- NOTE | 2016-12-24 09:55 | PDOC ---
Subjective: Subjective: Per pt - diarrhea (watery) this morning. Feeling better breathing-albright, continues to cough. Objective: Objective: Per RN - probably will DC soon, resp issues improving. Vital Signs: Vital Signs Date Time Temp Pulse Resp B/P Pulse Ox O2 Delivery O2 Flow Rate FiO2 12/24/16 08:20 81 116/72 12/24/16 07:32 97 Nasal Cannula 4.0 12/24/16 07:00 97.5 18 97.5 PE: GEN: NAD, up to chair LUNGS: nasal cannula, deep cough, decreased air flow anteriorly HEART: RRR ABD: NABS, S/ND/NT NEURO/PSYCH: A & O 3 A/P: Change in bowel habits/irregular bowel habits -onset 06/2016 w/o precipitating events, ?atbx induced -last colonoscopy w/ Dr. Alexandra 2-3 years ago reportedly normal (prefers to have colonoscopies every 2 years w/ FH rectal cancer, personal h/o polyps) -stool cx, hemoccult pending COPD exacerbation -- Outpatient colonoscopy recommended when resp status improved/stable. Will add probiotics. CHARLENE NICHOLAS Dec 24, 2016 09:55
--- NOTE | 2016-12-24 10:46 | PDOC ---
PROGRESS NOTES Chief Complaint Chief Complaint 1. Acute hypoxic respiratory failure needing NIPPV and bagging at the scene 1.Acute bronchitis 2. AECOPD, severe 3. PRev smoker (quit 2 yrs ago) 4. Obesity 5. Salazar Dermatitis face, better 6. Superficial dermatitis, intertriginous areas 7. Obesity 8. MIld to mod PCM 9./ GERD 10. LEg edema 12. Scrotal swelling, resolved 13. Post nasal drip plan: 1. fu with pulm 2. add prednisone. no abx as per pulm 3. duoneb hope dc in 1-2 ds dvt, gi ppx PTOT replete k History of Present Illness History of Present Illness DOing well, on nasal canula this AM on 2L NC, which is his baseline, bipap at night at home NO inc in SOA WAs on BIPAP all throughout the night since admission CXR - no PNA Mentions to me his stools are altered, sometime spellets, and lately has been liquidy Claims had c scope 3 yrs ago and is supposed to do it q2 yrs Claims on lasix 80 PO at home CLaims loved it at [facility], did not like it much at [facility] admit here for COPD exacrb was May 2016 , which is actually good for this pt given his frequency in the past Willing t go back to [facility] Vitals Vitals Vital Signs Date Time Temp Pulse Resp B/P Pulse Ox O2 Delivery O2 Flow Rate FiO2 12/24/16 08:20 81 116/72 12/24/16 08:15 Nasal Cannula 4.0 12/24/16 07:32 97 12/24/16 07:00 97.5 18 97.5 Physical Exam General: Alert, Oriented X3 Heart: Regular rate Lungs: Wheezing (BL BASIlar mild wheezing) Abdomen: Normal bowel sounds, Soft, No tenderness, No hepatosplenomegaly, No masses Extremities: No clubbing, No cyanosis, No edema, Normal pulses, No tenderness/ swelling Skin: No rashes, No breakdown, No significant lesion Labs LABS Laboratory Tests Test 12/24/16 03:05 White Blood Count 9.8x10^3/uL (4.0-11.0) Red Blood Count 4.65x10^6/uL (4.30-5.70) Hemoglobin 12.5g/dL (13.0-17.5) Hematocrit 38.8% (39.0-53.0) Mean Corpuscular Volume 84fL (79-100) Mean Corpuscular Hemoglobin 27pg (25-35) Mean Corpuscular Hemoglobin Concent 32g/dL (31-37) Red Cell Distribution Width 14.4% (11.5-14.5) Platelet Count 162x10^3/uL (140-400) Neutrophils (%) (Auto) 71% (31-73) Lymphocytes (%) (Auto) 18% (24-48) Monocytes (%) (Auto) 10% (0-9) Eosinophils (%) (Auto) 1% (0-3) Basophils (%) (Auto) 1% (0-3) Neutrophils # (Auto) 6.9x10^3uL (1.8-7.7) Lymphocytes # (Auto) 1.7x10^3/uL (1.0-4.8) Monocytes # (Auto) 1.0x10^3/uL (0.0-1.1) Eosinophils # (Auto) 0.0x10^3/uL (0.0-0.7) Basophils # (Auto) 0.1x10^3/uL (0.0-0.2) Sodium Level 135mmol/L (136-145) Potassium Level 3.3mmol/L (3.5-5.1) Chloride Level 97mmol/L (98-107) Carbon Dioxide Level 34mmol/L (21-32) Anion Gap 4 (6-14) Blood Urea Nitrogen 15mg/dL (8-26) Creatinine 0.7mg/dL (0.7-1.3) Estimated GFR (Cockcroft-Gault) 113.5 Glucose Level 138mg/dL (70-99) Calcium Level 8.5mg/dL (8.5-10.1) Review of Systems Review of Systems no fever, chills, sob or chest pain Assessment and Plan Assessmemt and Plan Problems Medical Problems: (1) Acute respiratory distress Status: Acute (2) COPD with acute exacerbation Status: Acute Problems: Comment Review of Relevant I have reviewed the following items cindy (where applicable) has been applied. Labs Laboratory Tests Test 12/22/16 12:55 12/22/16 13:22 12/22/16 15:30 12/22/16 20:00 White Blood Count 8.3x10^3/uL (4.0-11.0) Red Blood Count 5.21x10^6/uL (4.30-5.70) Hemoglobin 14.0g/dL (13.0-17.5) Hematocrit 42.9% (39.0-53.0) Mean Corpuscular Volume 82fL (79-100) Mean Corpuscular Hemoglobin 27pg (25-35) Mean Corpuscular Hemoglobin Concent 33g/dL (31-37) Red Cell Distribution Width 14.3% (11.5-14.5) Platelet Count 174x10^3/uL (140-400) Neutrophils (%) (Auto) 70% (31-73) Lymphocytes (%) (Auto) 16% (24-48) Monocytes (%) (Auto) 10% (0-9) Eosinophils (%) (Auto) 3% (0-3) Basophils (%) (Auto) 1% (0-3) Neutrophils # (Auto) 5.8x10^3uL (1.8-7.7) Lymphocytes # (Auto) 1.3x10^3/uL (1.0-4.8) Monocytes # (Auto) 0.8x10^3/uL (0.0-1.1) Eosinophils # (Auto) 0.3x10^3/uL (0.0-0.7) Basophils # (Auto) 0.1x10^3/uL (0.0-0.2) Sodium Level 130mmol/L (136-145) Potassium Level 4.6mmol/L (3.5-5.1) Chloride Level 89mmol/L (98-107) Carbon Dioxide Level 37mmol/L (21-32) Anion Gap 4 (6-14) Blood Urea Nitrogen 9mg/dL (8-26) Creatinine 0.7mg/dL (0.7-1.3) Estimated GFR (Cockcroft-Gault) 113.5 Glucose Level 106mg/dL (70-99) Calcium Level 9.7mg/dL (8.5-10.1) Troponin I Quantitative < 0.017ng/mL (0.000-0.055) < 0.017ng/mL (0.000-0.055) YW-Nef-O-Type Natriuretic Peptide 93pg/mL (0-124) O2 Saturation 96% (92-99) Arterial Blood pH 7.35 (7.35-7.45) Arterial Blood pCO2 at Patient Temp 64mmHg (35-46) Arterial Blood pO2 at Patient Temp 86mmHg (65-108) Arterial Blood HCO3 35mmol/L (21-28) Arterial Blood Base Excess 7mmol/L (-3-3) FiO2 40 Nasal Screen MRSA (PCR) Positive (Negative) Test 12/23/16 01:48 12/24/16 03:05 Troponin I Quantitative < 0.017ng/mL (0.000-0.055) White Blood Count 9.8x10^3/uL (4.0-11.0) Red Blood Count 4.65x10^6/uL (4.30-5.70) Hemoglobin 12.5g/dL (13.0-17.5) Hematocrit 38.8% (39.0-53.0) Mean Corpuscular Volume 84fL (79-100) Mean Corpuscular Hemoglobin 27pg (25-35) Mean Corpuscular Hemoglobin Concent 32g/dL (31-37) Red Cell Distribution Width 14.4% (11.5-14.5) Platelet Count 162x10^3/uL (140-400) Neutrophils (%) (Auto) 71% (31-73) Lymphocytes (%) (Auto) 18% (24-48) Monocytes (%) (Auto) 10% (0-9) Eosinophils (%) (Auto) 1% (0-3) Basophils (%) (Auto) 1% (0-3) Neutrophils # (Auto) 6.9x10^3uL (1.8-7.7) Lymphocytes # (Auto) 1.7x10^3/uL (1.0-4.8) Monocytes # (Auto) 1.0x10^3/uL (0.0-1.1) Eosinophils # (Auto) 0.0x10^3/uL (0.0-0.7) Basophils # (Auto) 0.1x10^3/uL (0.0-0.2) Sodium Level 135mmol/L (136-145) Potassium Level 3.3mmol/L (3.5-5.1) Chloride Level 97mmol/L (98-107) Carbon Dioxide Level 34mmol/L (21-32) Anion Gap 4 (6-14) Blood Urea Nitrogen 15mg/dL (8-26) Creatinine 0.7mg/dL (0.7-1.3) Estimated GFR (Cockcroft-Gault) 113.5 Glucose Level 138mg/dL (70-99) Calcium Level 8.5mg/dL (8.5-10.1) Laboratory Tests Test 12/24/16 03:05 White Blood Count 9.8x10^3/uL (4.0-11.0) Red Blood Count 4.65x10^6/uL (4.30-5.70) Hemoglobin 12.5g/dL (13.0-17.5) Hematocrit 38.8% (39.0-53.0) Mean Corpuscular Volume 84fL (79-100) Mean Corpuscular Hemoglobin 27pg (25-35) Mean Corpuscular Hemoglobin Concent 32g/dL (31-37) Red Cell Distribution Width 14.4% (11.5-14.5) Platelet Count 162x10^3/uL (140-400) Neutrophils (%) (Auto) 71% (31-73) Lymphocytes (%) (Auto) 18% (24-48) Monocytes (%) (Auto) 10% (0-9) Eosinophils (%) (Auto) 1% (0-3) Basophils (%) (Auto) 1% (0-3) Neutrophils # (Auto) 6.9x10^3uL (1.8-7.7) Lymphocytes # (Auto) 1.7x10^3/uL (1.0-4.8) Monocytes # (Auto) 1.0x10^3/uL (0.0-1.1) Eosinophils # (Auto) 0.0x10^3/uL (0.0-0.7) Basophils # (Auto) 0.1x10^3/uL (0.0-0.2) Sodium Level 135mmol/L (136-145) Potassium Level 3.3mmol/L (3.5-5.1) Chloride Level 97mmol/L (98-107) Carbon Dioxide Level 34mmol/L (21-32) Anion Gap 4 (6-14) Blood Urea Nitrogen 15mg/dL (8-26) Creatinine 0.7mg/dL (0.7-1.3) Estimated GFR (Cockcroft-Gault) 113.5 Glucose Level 138mg/dL (70-99) Calcium Level 8.5mg/dL (8.5-10.1) Medications Current Medications Methylprednisolone Sodium Succinate (Solu-Medrol 125mg Vial) 125 mg 1X ONCE IV Last administered on 12/22/16 13:14; Start 12/22/16 at 13:00; Stop 12/22/16 at 13:01; Status DC Albuterol/ Ipratropium 3 ml 3 ml 1X ONCE NEB Last administered on 12/22/16 13 :36; Start 12/22/16 at 13:00; Stop 12/22/16 at 13:01; Status DC Sodium Chloride (Iv Sodium Chloride 0.9% 500ml Bag) 500 ml @ 500 mls/hr 1X ONCE IV Last administered on 12/22/16 13:15; Start 12/22/16 at 13:00; Stop at 13:59; Status DC Lorazepam (Ativan) 0.5 mg 1X ONCE IV Last administered on 12/22/16 13:14; Start 12/22/16 at 13:00; Stop 12/22/16 at 13:01; Status DC Ondansetron HCl 4 mg 4 mg PRN Q8HRS PRN IV NAUSEA/VOMITING; Start 12/22/16 at 13:45; Stop 12/22/16 at 15:07; Status DC Sodium Chloride (Iv Sodium Chloride 0.9% 1000ml Bag) 1,000 ml @ 100 mls/hr Q10H IV Last administered on 12/23/16 09:53; Start 12/22/16 at 14:00; Stop at 10:32; Status DC Acetaminophen (Tylenol) 650 mg PRN Q4HRS PRN PO FEVER; Start 12/22/16 at 13:45 ; Stop 12/23/16 at 13:44; Status DC Ondansetron HCl (Zofran) 4 mg PRN Q6HRS PRN IV NAUSEA/VOMITING; Start 12/22/16 at 15:05 Guaifenesin (Mucinex) 600 mg BID PO Last administered on 12/24/16 08:16; Start 12/22/16 at 21:00 Guaifenesin (Robitussin Dm) 10 ml PRN QID PRN PO COUGH; Start 12/22/16 at 17:00 Albuterol/ Ipratropium (Duoneb) 3 ml RTQID NEB Last administered on 12/22/16 20:39; Start 12/22/16 at 16:00; Stop 12/23/16 at 00:57; Status DC Aspirin (Yolette Aspirin) 325 mg DAILY PO Last administered on 12/24/16 08:16; Start 12/22/16 at 16:00 Throat Lozenges (Cepacol Sore Throat Lozenge) 1 analia PRN Q2HRS PRN PO SORE THROAT; Start 12/22/16 at 15:15 Benzonatate (Tessalon Perle) 100 mg PRN TID PRN PO COUGH; Start 12/22/16 at 15: 15 Diltiazem HCl (Cardizem 24hr Cd) 240 mg DAILY PO Last administered on 08:20; Start 12/22/16 at 16:00 Furosemide (Lasix) 40 mg DAILY PO Last administered on 12/23/16 08:29; Start 12/22/16 at 16:00; Stop 12/23/16 at 10:32; Status DC Losartan Potassium (Cozaar) 100 mg DAILY PO Last administered on 12/24/16 08: 20; Start 12/22/16 at 16:00 Tamsulosin HCl (Flomax) 0.4 mg DAILY PO Last administered on 12/24/16 08:16; Start 12/22/16 at 16:00 Pantoprazole Sodium (Protonix) 40 mg DAILYAC PO Last administered on 12/24/16 08:16; Start 12/23/16 at 07:30 Atorvastatin Calcium (Lipitor) 5 mg QHS PO Last administered on 12/23/16 21:15 ; Start 12/22/16 at 21:00 Hydralazine HCl (Apresoline) 10 mg PRN Q4HRS PRN IVP ELEVATED BP, SEE COMMENTS ; Start 12/22/16 at 15:15 Famotidine (Pepcid) 20 mg BID IVP ; Start 12/22/16 at 21:00; Status UNV Enoxaparin Sodium (Lovenox 40mg Syringe) 40 mg Q24H SQ Last administered on 16:00; Start 12/22/16 at 16:00 Cetirizine HCl (Zyrtec) 10 mg DAILY PO Last administered on 12/24/16 08:16; Start 12/23/16 at 09:00 Fluticasone Propionate (Flonase) 2 spray DAILY NS Last administered on 08:16; Start 12/23/16 at 09:00 Scopolamine (Transderm-Scop) 1 patch Q3DAYS TD Last administered on 12/22/16 20:59; Start 12/22/16 at 21:00 Alprazolam (Xanax) 0.5 mg PRN Q6HRS PRN PO ANXIETY / AGITATION Last administered on 12/23/16 21:14; Start 12/22/16 at 20:45 Albuterol/ Ipratropium (Duoneb) 3 ml Q4HRS NEB Last administered on 12/24/16 07:32; Start 12/23/16 at 04:00 Albuterol/ Ipratropium (Duoneb) 3 ml 1X ONCE NEB Last administered on 01:22; Start 12/23/16 at 01:30; Stop 12/23/16 at 01:31; Status DC Furosemide (Lasix) 80 mg DAILY PO Last administered on 12/24/16 08:16; Start 12/24/16 at 09:00 Acetaminophen (Tylenol) 650 mg PRN Q6HRS PRN PO MILD PAIN / TEMP; Start at 08:00 Albuterol Sulfate (Ventolin Neb Soln) 2.5 mg PRN Q4HRS PRN NEB SHORTNESS OF BREATH; Start 12/24/16 at 08:00 Potassium Chloride (Klor-Con) 40 meq 1X ONCE PO ; Start 12/24/16 at 09:00; Stop 12/24/16 at 09:01; Status DC Potassium Chloride (Klor-Con) 20 meq DAILYWBKFT PO ; Start 12/25/16 at 08:00 Lactobacillus Acidophilus (Bacid, [place]-Bid) 1 tab DAILY PO ; Start 12/24/16 at 11:30 Active Scripts Active Cepacol Sore Throat Lozenge (Benzocaine/Menthol) 1 Each Lozenge 1 Analia PO PRN Q2HRS PRN Benzonatate 100 Mg Capsule 100 Mg PO TID PRN Promethazine-Codeine Syrup (Promethazine Hcl/Codeine) 118 Ml Syrup 5 Ml PO PRN Q4HRS PRN Mucinex (Guaifenesin) 600 Mg Tablet.er 1 Tab PO BID Reported Zyrtec (Cetirizine Hcl) 10 Mg Tablet 1 Tab PO DAILY Xanax (Alprazolam) 0.5 Mg Tablet 0.5 Mg PO PRN Q6HRS PRN Robitussin Cough-Chest Dm Liq (Guaifenesin/Dextromethorphan) 118 Ml Liquid 118 Ml PO Transderm-Scop (Scopolamine) 1 Each Patch.td72 1 Patch TP Q3DAYS Protonix (Pantoprazole Sodium) 40 Mg Granpkt.dr 40 Mg PO DAILY Lipitor (Atorvastatin Calcium) 10 Mg Tablet 0.5 Tab PO QHS Potassium Chloride 20 Meq Tablet.er 20 Meq PO DAILY Aspirin 325 Mg Tablet 1 Tab PO DAILY Aldactone (Spironolactone) 50 Mg Tablet 1 Tab PO DAILY Guaifenesin Dm Syrup (Guaifenesin/Dextromethorphan) 5 Ml Syrup 10 Ml PO PRN Q6HRS PRN Flonase Allergy Relief (Fluticasone Propionate) 9.9 Ml [place].susp 2 Sprays NS DAILY Cardizem Cd (Diltiazem Hcl) 240 Mg Cap.er.24h 1 Cap PO DAILY Albuterol Sulfate Neb Soln (Albuterol Sulfate) 2.5 Mg/3 Ml Vial.neb 1 Vial NEB PRN Q2HRS PRN Aspirin 325 Mg Tablet 1 Tab PO DAILY Duoneb 0.5-3(2.5) Mg/3 Ml (Albuterol/Ipratropium) 3 Ml Ampul.neb 3 Ml IH Q4HRS Symbicort 160-4.5 Mcg Inhaler (Budesonide/Formoterol Fumarate) 10.2 Gm Hfa.aer.ad 2 Puff IH BID Furosemide 40 Mg Tablet 80 Mg PO DAILY Nexium Capsule (Esomeprazole Magnesium) 40 Mg Capsule.dr 40 Mg PO DAILY Lovastatin 20 Mg Tablet 20 Mg PO DAILY Tamsulosin Hcl 0.4 Mg Cap.er.24h 0.4 Mg PO DAILY Losartan Potassium 50 Mg Tablet 100 Mg PO DAILY Vitals/I & O Vital Sign - Last 24 Hours 12/23/16 12/23/16 12/23/16 12/23/16 11:00 12:49 15:00 15:24 Temp 97.7 97.9 97.7 97.9 Pulse 100 79 Resp 18 24 B/P 135/74 107/64 Pulse Ox 90 94 98 99 O2 Delivery Nasal Cannula Nasal Cannula Nasal Cannula BiPAP/CPAP O2 Flow Rate 4.0 4.0 4.0 12/23/16 12/23/16 12/23/16 12/23/16 19:00 19:47 20:00 20:00 Temp 97.7 97.7 Pulse 82 Resp 18 B/P 131/59 Pulse Ox 96 95 O2 Delivery Nasal Cannula Nasal Cannula Nasal Cannula O2 Flow Rate 4.0 4.0 4.0 4.0 12/23/16 12/23/16 12/24/16 12/24/16 23:00 23:56 03:00 07:00 Temp 98.6 97.7 97.5 98.6 97.7 97.5 Pulse 51 74 76 Resp 20 20 18 B/P 100/57 97/53 93/61 Pulse Ox 97 96 92 O2 Delivery Nasal Cannula Nasal Cannula Nasal Cannula Nasal Cannula O2 Flow Rate 4.0 4.0 4.0 4.0 12/24/16 12/24/16 12/24/16 12/24/16 07:32 08:15 08:20 08:20 Pulse 81 81 B/P 116/72 116/72 Pulse Ox 97 O2 Delivery Nasal Cannula Nasal Cannula O2 Flow Rate 4.0 4.0 Intake and Output 12/23/16 12/23/16 12/24/16 15:00 23:00 07:00 Intake Total 760 ml Output Total 550 ml Balance 760 ml -550 ml ARACELIS BRICENO MD Dec 24, 2016 10:46
[2016-12-24] MEDS: LACTOBACILLUS ACIDOPH & BULGAR 1 TABLET. PO SCH (12:58)
[2016-12-24] MEDS: PREDNISONE 20 MG TABLET PO SCH (12:59)
[2016-12-24] MEDS: ACETAMINOPHEN 325 MG TABLET. PO PRN (12:59)
[2016-12-24] MEDS: ALPRAZOLAM 0.5 MG TABLET PO PRN ×2 (13:09→20:02)
[2016-12-24] MEDS: GUAIFENESIN DM 200MG/20MG 10 ML SYRUP. PO PRN (13:09)
--- NOTE | 2016-12-24 13:36 | RAD ---
Portable chest, 12/24/2016: History: Fever, COPD Comparison is made to a study from 12/22/2016. The patient positioning is lordotic. The heart size is normal. There is tortuosity of the thoracic aorta. Mild prominence of the pulmonary markings is unchanged and probably due to fibrosis. No pulmonary consolidation is seen. There is unchanged blunting of the left lateral costophrenic angle compatible with scarring. No pleural fluid is evident. IMPRESSION: Stable portable chest.
[2016-12-24 13:50] LABS: BILIRUBIN,URINE NEGATIVE (NEG); GLUCOSE,URINE NEGATIVE (NEG); NITRITE,URINE NEGATIVE (NEG); PROTEIN,URINE NEGATIVE (NEG-TRACE); UROBILINOGEN,URINE 0.2 mg/dL (0.2 mg/dL)
[2016-12-24 14:04] LABS: BACTERIA,URINE MODERATE /HPF (0-FEW); RBC,URINE 20-40 /HPF (0-2); SQUAMOUS EPITHELIAL CELL,UR OCC /LPF
[2016-12-24 14:06] LABS: OBC FLU VALID
[2016-12-24] MEDS: ENOXAPARIN 40 MG/0.4 ML DISP.SYRIN. SQ SCH (16:55)
[2016-12-24] MEDS ORDERED: VANCOMYCIN 1.5 GM in IV NORMAL SALINE 500ML BAG 500 ML IV SCH (17:30)
[2016-12-24] MEDS ORDERED: VANCOMYCIN 2 GM in IV NORMAL SALINE 500ML BAG 500 ML IV ONE (18:00)
[2016-12-24] MEDS: VANCOMYCIN PER PHARMACY MC PRN ×2 (18:40→20:22)
[2016-12-24] MEDS: ATORVASTATIN CALCIUM 10 MG TABLET. PO SCH (20:02)
[2016-12-24] MEDS: BENZOCAINE/MENTHOL LOZENGE. PO PRN (20:02)
[2016-12-24] MEDS: BENZONATATE 100 MG CAPSULE. PO PRN (20:03)
[2016-12-24] MEDS ORDERED: DOXYCYCLINE HYCLATE 100 MG TABLET PO SCH (21:00)
[2016-12-25 03:00] VITALS: BP 102/59
[2016-12-25] MEDS: IPRATRPIUM/ALBUTEROL 0.5/2.5MG 3 ML NEBU. NEB SCH ×6 (03:46→23:34)
[2016-12-25] MEDS: VANCOMYCIN 1.5 GM in IV NORMAL SALINE 500ML BAG 500 ML IV SCH ×3 (03:53→20:00)
[2016-12-25] MEDS: GUAIFENESIN DM 200MG/20MG 10 ML SYRUP. PO PRN ×3 (03:53→20:05)
[2016-12-25] MEDS: BENZOCAINE/MENTHOL LOZENGE. PO PRN ×3 (03:53→20:05)
[2016-12-25 04:53] LABS: BASO % 0 % (0-3); EOS % 0 % (0-3); HEMATOCRIT 37.9 % (39.0-53.0); LYMPH # 0.7 x10^3/uL (1.0-4.8); LYMPH % 3 % (24-48); MEAN CORPUSCULAR HEMOGLOBIN 27 pg (25-35); MEAN CORPUSCULAR HGB CONC 32 g/dL (31-37); MEAN CORPUSCULAR VOLUME 83 fL (79-100); MONO % 6 % (0-9); NEUT % 91 % (31-73); PLATELET COUNT 153 x10^3/uL (140-400); RED BLOOD COUNT 4.54 x10^6/uL (4.30-5.70); RED CELL DISTRIBUTION WIDTH 14.5 % (11.5-14.5); WHITE BLOOD COUNT 26.8 x10^3/uL (4.0-11.0)
[2016-12-25 05:29] LABS: CALCIUM 8.5 mg/dL (8.5-10.1); CREATININE 0.8 mg/dL (0.7-1.3); GFR 97.3
[2016-12-25] MEDS: PANTOPRAZOLE 40 MG TABLET. PO SCH (06:23)
[2016-12-25 07:00] VITALS: BP 122/65
[2016-12-25 07:17] LABS: PLT ESTIMATE ADEQUATE (ADEQUATE)
--- NOTE | 2016-12-25 09:54 | PDOC ---
Subjective: Subjective: Per pt - had a fever, coughing more today but less productive, having different types of stools. Objective: Objective: Per RN - had a watery stool, had a fever last night. Vital Signs: Vital Signs Date Time Temp Pulse Resp B/P Pulse Ox O2 Delivery O2 Flow Rate FiO2 12/25/16 07:30 Nasal Cannula 4.0 12/25/16 07:26 95 12/25/16 07:00 97.8 87 22 122/65 97.8 Labs: Laboratory Tests Test 12/24/16 13:10 12/24/16 13:20 12/25/16 04:45 Urine Collection Type Unknown Urine Color Yellow Urine Clarity Clear Urine pH 6.0 Urine Specific [place] 1.010 Urine Protein Negativemg/dL Urine Glucose (UA) Negativemg/dL Urine Ketones (Stick) Negativemg/dL Urine Blood Large Urine Nitrite Negative Urine Bilirubin Negative Urine Urobilinogen Dipstick 0.2mg/dL Urine Leukocyte Esterase Large Urine RBC 20-40/HPF Urine WBC 5-10/HPF Urine Squamous Epithelial Cells Occ/LPF Urine Bacteria Moderate/HPF Urine Mucus Slight/LPF Influenza Type A Antigen Negative Influenza Type B Antigen Negative White Blood Count 26.8x10^3/uL Red Blood Count 4.54x10^6/uL Hemoglobin 12.0g/dL Hematocrit 37.9% Mean Corpuscular Volume 83fL Mean Corpuscular Hemoglobin 27pg Mean Corpuscular Hemoglobin Concent 32g/dL Red Cell Distribution Width 14.5% Platelet Count 153x10^3/uL Neutrophils (%) (Auto) 91% Lymphocytes (%) (Auto) 3% Monocytes (%) (Auto) 6% Eosinophils (%) (Auto) 0% Basophils (%) (Auto) 0% Neutrophils # (Auto) 24.4x10^3uL Lymphocytes # (Auto) 0.7x10^3/uL Monocytes # (Auto) 1.7x10^3/uL Eosinophils # (Auto) 0.0x10^3/uL Basophils # (Auto) 0.0x10^3/uL Segmented Neutrophils % 93% Band Neutrophils % 5% Lymphocytes % 1% Monocytes % 1% Platelet Estimate Adequate Sodium Level 134mmol/L Potassium Level 4.0mmol/L Chloride Level 94mmol/L Carbon Dioxide Level 34mmol/L Anion Gap 6 Blood Urea Nitrogen 19mg/dL Creatinine 0.8mg/dL Estimated GFR (Cockcroft-Gault) 97.3 Glucose Level 99mg/dL Calcium Level 8.5mg/dL Imaging: CXR 12/24/16 IMPRESSION: Stable portable chest. PE: GEN: NAD, up in chair LUNGS: decreased anteriorly, nasal cannula HEART: RRR ABD:BS+, S/NT NEURO/PSYCH: A & O 3 A/P: Change in bowel habits/irregular bowel habits -onset 06/2016 w/o precipitating events, ?atbx induced, on probiotics -last colonoscopy w/ Dr. Alexandra 2-3 years ago reportedly normal (says has colonoscopy every 2 years w/ FH rectal cancer, personal h/o polyps) -fecal fat WNL COPD exacerbation -had fever yesterday -- Outpatient colonoscopy recommended when resp status improved/stable. CHARLENE NICHOLAS Dec 25, 2016 09:54
[2016-12-25] MEDS: DILTIAZEM HCL 240 MG CAP.ER.24H PO SCH (10:20)
[2016-12-25] MEDS: CETIRIZINE HCL 10 MG TABLET PO SCH (10:21)
[2016-12-25] MEDS: FUROSEMIDE 40 MG TABLET PO SCH (10:21)
[2016-12-25] MEDS: POTASSIUM CHLORIDE 20 MEQ TABLET.ER. PO SCH (10:21)
[2016-12-25] MEDS: TAMSULOSIN 0.4 MG CAP.ER.24H. PO SCH (10:21)
[2016-12-25] MEDS: GUAIFENESIN ER 600 MG TABLET.ER PO SCH ×2 (10:21→20:05)
[2016-12-25] MEDS: SCOPOLAMINE 1.5MG PATCH. TD SCH (10:21)
[2016-12-25] MEDS: ASPIRIN 325 MG TABLET PO SCH (10:21)
[2016-12-25] MEDS: PREDNISONE 20 MG TABLET PO SCH (10:22)
[2016-12-25] MEDS: LACTOBACILLUS ACIDOPH & BULGAR 1 TABLET. PO SCH (10:22)
[2016-12-25] MEDS: BENZONATATE 100 MG CAPSULE. PO PRN ×2 (10:24→20:05)
[2016-12-25 11:00] VITALS: BP 126/63
--- NOTE | 2016-12-25 11:58 | PDOC ---
PROGRESS NOTES Chief Complaint Chief Complaint 1. Acute hypoxic respiratory failure needing NIPPV and bagging at the scene 1.Acute bronchitis 2. AECOPD, severe 3. PRev smoker (quit 2 yrs ago) 4. Obesity 5. Salazar Dermatitis face, better 6. Superficial dermatitis, intertriginous areas 7. Obesity 8. MIld to mod PCM 9./ GERD 10. LEg edema 12. Scrotal swelling, resolved 13. Post nasal drip plan: 1. fu with pulm 2. add prednisone. no abx as per pulm 3. duoneb hope dc in 1-2 ds dvt, gi ppx PTOT replete k History of Present Illness History of Present Illness needd BIPAP last night Up in chair NO wheezing but very diminished BS In depth conversation with him today Knows he only has 20-25% lung functioning Never was on hospice but palliative introduced at one point Thinking about lung transplant - we talked about qualifications etc Quit smoking 2 yrs ago, smoked since age 18 (everybody in family almost smoked) Worried his wont be able to take care of him anymore- has now RA Did actually pretty well with PT -no SNU needs Frustrated he cant get the cscope while inpt- he thinks he should have it done while here - hx rectal CA immediate famil;y? Still doing loose stools Depressed, he cant even drive his rather new car (2013) PLAn: CPM Counselling provided today, heavy Will discuss with PAYTON teresa scope issues Vitals Vitals Vital Signs Date Time Temp Pulse Resp B/P Pulse Ox O2 Delivery O2 Flow Rate FiO2 12/25/16 11:00 97.6 84 22 126/63 96 Nasal Cannula 4.0 97.6 Physical Exam General: Alert, Oriented X3 Heart: Regular rate Lungs: Wheezing (BL BASIlar mild wheezing) Abdomen: Normal bowel sounds, Soft, No tenderness, No hepatosplenomegaly, No masses Extremities: No clubbing, No cyanosis, No edema, Normal pulses, No tenderness/ swelling Skin: No rashes, No breakdown, No significant lesion Labs LABS Laboratory Tests Test 12/24/16 13:10 12/24/16 13:20 12/25/16 04:45 Urine Collection Type Unknown Urine Color Yellow Urine Clarity Clear Urine pH 6.0 Urine Specific [place] 1.010 Urine Protein Negativemg/dL (NEG-TRACE) Urine Glucose (UA) Negativemg/dL (NEG) Urine Ketones (Stick) Negativemg/dL (NEG) Urine Blood Large (NEG) Urine Nitrite Negative (NEG) Urine Bilirubin Negative (NEG) Urine Urobilinogen Dipstick 0.2mg/dL (0.2 mg/dL) Urine Leukocyte Esterase Large (NEG) Urine RBC 20-40/HPF (0-2) Urine WBC 5-10/HPF (0-4) Urine Squamous Epithelial Cells Occ/LPF Urine Bacteria Moderate/HPF (0-FEW) Urine Mucus Slight/LPF Influenza Type A Antigen Negative (NEGATIVE) Influenza Type B Antigen Negative (NEGATIVE) White Blood Count 26.8x10^3/uL (4.0-11.0) Red Blood Count 4.54x10^6/uL (4.30-5.70) Hemoglobin 12.0g/dL (13.0-17.5) Hematocrit 37.9% (39.0-53.0) Mean Corpuscular Volume 83fL (79-100) Mean Corpuscular Hemoglobin 27pg (25-35) Mean Corpuscular Hemoglobin Concent 32g/dL (31-37) Red Cell Distribution Width 14.5% (11.5-14.5) Platelet Count 153x10^3/uL (140-400) Neutrophils (%) (Auto) 91% (31-73) Lymphocytes (%) (Auto) 3% (24-48) Monocytes (%) (Auto) 6% (0-9) Eosinophils (%) (Auto) 0% (0-3) Basophils (%) (Auto) 0% (0-3) Neutrophils # (Auto) 24.4x10^3uL (1.8-7.7) Lymphocytes # (Auto) 0.7x10^3/uL (1.0-4.8) Monocytes # (Auto) 1.7x10^3/uL (0.0-1.1) Eosinophils # (Auto) 0.0x10^3/uL (0.0-0.7) Basophils # (Auto) 0.0x10^3/uL (0.0-0.2) Segmented Neutrophils % 93% (35-66) Band Neutrophils % 5% (0-9) Lymphocytes % 1% (24-48) Monocytes % 1% (0-10) Platelet Estimate Adequate (ADEQUATE) Sodium Level 134mmol/L (136-145) Potassium Level 4.0mmol/L (3.5-5.1) Chloride Level 94mmol/L (98-107) Carbon Dioxide Level 34mmol/L (21-32) Anion Gap 6 (6-14) Blood Urea Nitrogen 19mg/dL (8-26) Creatinine 0.8mg/dL (0.7-1.3) Estimated GFR (Cockcroft-Gault) 97.3 Glucose Level 99mg/dL (70-99) Calcium Level 8.5mg/dL (8.5-10.1) Review of Systems Review of Systems depressed, SOA, cough, weak, no inc CP Assessment and Plan Assessmemt and Plan Problems Medical Problems: (1) Acute respiratory distress Status: Acute (2) COPD with acute exacerbation Status: Acute Problems: Comment Review of Relevant I have reviewed the following items cindy (where applicable) has been applied. Labs Laboratory Tests Test 12/23/16 14:50 12/24/16 03:05 12/24/16 13:10 12/24/16 13:20 Miscellaneous Test Comment (.) White Blood Count 9.8x10^3/uL (4.0-11.0) Red Blood Count 4.65x10^6/uL (4.30-5.70) Hemoglobin 12.5g/dL (13.0-17.5) Hematocrit 38.8% (39.0-53.0) Mean Corpuscular Volume 84fL (79-100) Mean Corpuscular Hemoglobin 27pg (25-35) Mean Corpuscular Hemoglobin Concent 32g/dL (31-37) Red Cell Distribution Width 14.4% (11.5-14.5) Platelet Count 162x10^3/uL (140-400) Neutrophils (%) (Auto) 71% (31-73) Lymphocytes (%) (Auto) 18% (24-48) Monocytes (%) (Auto) 10% (0-9) Eosinophils (%) (Auto) 1% (0-3) Basophils (%) (Auto) 1% (0-3) Neutrophils # (Auto) 6.9x10^3uL (1.8-7.7) Lymphocytes # (Auto) 1.7x10^3/uL (1.0-4.8) Monocytes # (Auto) 1.0x10^3/uL (0.0-1.1) Eosinophils # (Auto) 0.0x10^3/uL (0.0-0.7) Basophils # (Auto) 0.1x10^3/uL (0.0-0.2) Sodium Level 135mmol/L (136-145) Potassium Level 3.3mmol/L (3.5-5.1) Chloride Level 97mmol/L (98-107) Carbon Dioxide Level 34mmol/L (21-32) Anion Gap 4 (6-14) Blood Urea Nitrogen 15mg/dL (8-26) Creatinine 0.7mg/dL (0.7-1.3) Estimated GFR (Cockcroft-Gault) 113.5 Glucose Level 138mg/dL (70-99) Calcium Level 8.5mg/dL (8.5-10.1) Urine Collection Type Unknown Urine Color Yellow Urine Clarity Clear Urine pH 6.0 Urine Specific [place] 1.010 Urine Protein Negativemg/dL (NEG-TRACE) Urine Glucose (UA) Negativemg/dL (NEG) Urine Ketones (Stick) Negativemg/dL (NEG) Urine Blood Large (NEG) Urine Nitrite Negative (NEG) Urine Bilirubin Negative (NEG) Urine Urobilinogen Dipstick 0.2mg/dL (0.2 mg/dL) Urine Leukocyte Esterase Large (NEG) Urine RBC 20-40/HPF (0-2) Urine WBC 5-10/HPF (0-4) Urine Squamous Epithelial Cells Occ/LPF Urine Bacteria Moderate/HPF (0-FEW) Urine Mucus Slight/LPF Influenza Type A Antigen Negative (NEGATIVE) Influenza Type B Antigen Negative (NEGATIVE) Test 12/25/16 04:45 White Blood Count 26.8x10^3/uL (4.0-11.0) Red Blood Count 4.54x10^6/uL (4.30-5.70) Hemoglobin 12.0g/dL (13.0-17.5) Hematocrit 37.9% (39.0-53.0) Mean Corpuscular Volume 83fL (79-100) Mean Corpuscular Hemoglobin 27pg (25-35) Mean Corpuscular Hemoglobin Concent 32g/dL (31-37) Red Cell Distribution Width 14.5% (11.5-14.5) Platelet Count 153x10^3/uL (140-400) Neutrophils (%) (Auto) 91% (31-73) Lymphocytes (%) (Auto) 3% (24-48) Monocytes (%) (Auto) 6% (0-9) Eosinophils (%) (Auto) 0% (0-3) Basophils (%) (Auto) 0% (0-3) Neutrophils # (Auto) 24.4x10^3uL (1.8-7.7) Lymphocytes # (Auto) 0.7x10^3/uL (1.0-4.8) Monocytes # (Auto) 1.7x10^3/uL (0.0-1.1) Eosinophils # (Auto) 0.0x10^3/uL (0.0-0.7) Basophils # (Auto) 0.0x10^3/uL (0.0-0.2) Segmented Neutrophils % 93% (35-66) Band Neutrophils % 5% (0-9) Lymphocytes % 1% (24-48) Monocytes % 1% (0-10) Platelet Estimate Adequate (ADEQUATE) Sodium Level 134mmol/L (136-145) Potassium Level 4.0mmol/L (3.5-5.1) Chloride Level 94mmol/L (98-107) Carbon Dioxide Level 34mmol/L (21-32) Anion Gap 6 (6-14) Blood Urea Nitrogen 19mg/dL (8-26) Creatinine 0.8mg/dL (0.7-1.3) Estimated GFR (Cockcroft-Gault) 97.3 Glucose Level 99mg/dL (70-99) Calcium Level 8.5mg/dL (8.5-10.1) Laboratory Tests Test 12/24/16 13:10 12/24/16 13:20 12/25/16 04:45 Urine Collection Type Unknown Urine Color Yellow Urine Clarity Clear Urine pH 6.0 Urine Specific [place] 1.010 Urine Protein Negativemg/dL (NEG-TRACE) Urine Glucose (UA) Negativemg/dL (NEG) Urine Ketones (Stick) Negativemg/dL (NEG) Urine Blood Large (NEG) Urine Nitrite Negative (NEG) Urine Bilirubin Negative (NEG) Urine Urobilinogen Dipstick 0.2mg/dL (0.2 mg/dL) Urine Leukocyte Esterase Large (NEG) Urine RBC 20-40/HPF (0-2) Urine WBC 5-10/HPF (0-4) Urine Squamous Epithelial Cells Occ/LPF Urine Bacteria Moderate/HPF (0-FEW) Urine Mucus Slight/LPF Influenza Type A Antigen Negative (NEGATIVE) Influenza Type B Antigen Negative (NEGATIVE) White Blood Count 26.8x10^3/uL (4.0-11.0) Red Blood Count 4.54x10^6/uL (4.30-5.70) Hemoglobin 12.0g/dL (13.0-17.5) Hematocrit 37.9% (39.0-53.0) Mean Corpuscular Volume 83fL (79-100) Mean Corpuscular Hemoglobin 27pg (25-35) Mean Corpuscular Hemoglobin Concent 32g/dL (31-37) Red Cell Distribution Width 14.5% (11.5-14.5) Platelet Count 153x10^3/uL (140-400) Neutrophils (%) (Auto) 91% (31-73) Lymphocytes (%) (Auto) 3% (24-48) Monocytes (%) (Auto) 6% (0-9) Eosinophils (%) (Auto) 0% (0-3) Basophils (%) (Auto) 0% (0-3) Neutrophils # (Auto) 24.4x10^3uL (1.8-7.7) Lymphocytes # (Auto) 0.7x10^3/uL (1.0-4.8) Monocytes # (Auto) 1.7x10^3/uL (0.0-1.1) Eosinophils # (Auto) 0.0x10^3/uL (0.0-0.7) Basophils # (Auto) 0.0x10^3/uL (0.0-0.2) Segmented Neutrophils % 93% (35-66) Band Neutrophils % 5% (0-9) Lymphocytes % 1% (24-48) Monocytes % 1% (0-10) Platelet Estimate Adequate (ADEQUATE) Sodium Level 134mmol/L (136-145) Potassium Level 4.0mmol/L (3.5-5.1) Chloride Level 94mmol/L (98-107) Carbon Dioxide Level 34mmol/L (21-32) Anion Gap 6 (6-14) Blood Urea Nitrogen 19mg/dL (8-26) Creatinine 0.8mg/dL (0.7-1.3) Estimated GFR (Cockcroft-Gault) 97.3 Glucose Level 99mg/dL (70-99) Calcium Level 8.5mg/dL (8.5-10.1) Microbiology 12/24/16 Gram Stain - Final, Complete Medications Current Medications Methylprednisolone Sodium Succinate (Solu-Medrol 125mg Vial) 125 mg 1X ONCE IV Last administered on 12/22/16 13:14; Start 12/22/16 at 13:00; Stop 12/22/16 at 13:01; Status DC Albuterol/ Ipratropium 3 ml 3 ml 1X ONCE NEB Last administered on 12/22/16 13 :36; Start 12/22/16 at 13:00; Stop 12/22/16 at 13:01; Status DC Sodium Chloride (Iv Sodium Chloride 0.9% 500ml Bag) 500 ml @ 500 mls/hr 1X ONCE IV Last administered on 12/22/16 13:15; Start 12/22/16 at 13:00; Stop at 13:59; Status DC Lorazepam (Ativan) 0.5 mg 1X ONCE IV Last administered on 12/22/16 13:14; Start 12/22/16 at 13:00; Stop 12/22/16 at 13:01; Status DC Ondansetron HCl 4 mg 4 mg PRN Q8HRS PRN IV NAUSEA/VOMITING; Start 12/22/16 at 13:45; Stop 12/22/16 at 15:07; Status DC Sodium Chloride (Iv Sodium Chloride 0.9% 1000ml Bag) 1,000 ml @ 100 mls/hr Q10H IV Last administered on 12/23/16 09:53; Start 12/22/16 at 14:00; Stop at 10:32; Status DC Acetaminophen (Tylenol) 650 mg PRN Q4HRS PRN PO FEVER; Start 12/22/16 at 13:45 ; Stop 12/23/16 at 13:44; Status DC Ondansetron HCl (Zofran) 4 mg PRN Q6HRS PRN IV NAUSEA/VOMITING; Start 12/22/16 at 15:05 Guaifenesin (Mucinex) 600 mg BID PO Last administered on 12/25/16 10:21; Start 12/22/16 at 21:00 Guaifenesin (Robitussin Dm) 10 ml PRN QID PRN PO COUGH Last administered on 12/25 10:24; Start 12/22/16 at 17:00 Albuterol/ Ipratropium (Duoneb) 3 ml RTQID NEB Last administered on 12/22/16 20:39; Start 12/22/16 at 16:00; Stop 12/23/16 at 00:57; Status DC Aspirin (Yolette Aspirin) 325 mg DAILY PO Last administered on 12/25/16 10:21; Start 12/22/16 at 16:00 Throat Lozenges (Cepacol Sore Throat Lozenge) 1 analia PRN Q2HRS PRN PO SORE THROAT Last administered on 12/25/16 06:23; Start 12/22/16 at 15:15 Benzonatate (Tessalon Perle) 100 mg PRN TID PRN PO COUGH Last administered on 10:24; Start 12/22/16 at 15:15 Diltiazem HCl (Cardizem 24hr Cd) 240 mg DAILY PO Last administered on 12/25/16 10:20; Start 12/22/16 at 16:00 Furosemide (Lasix) 40 mg DAILY PO Last administered on 12/23/16 08:29; Start 12/22/16 at 16:00; Stop 12/23/16 at 10:32; Status DC Losartan Potassium (Cozaar) 100 mg DAILY PO Last administered on 12/24/16 08: 20; Start 12/22/16 at 16:00; Stop 12/24/16 at 17:20; Status DC Tamsulosin HCl (Flomax) 0.4 mg DAILY PO Last administered on 12/25/16 10:21; Start 12/22/16 at 16:00 Pantoprazole Sodium (Protonix) 40 mg DAILYAC PO Last administered on 12/25/16 06:23; Start 12/23/16 at 07:30 Atorvastatin Calcium (Lipitor) 5 mg QHS PO Last administered on 12/24/16 20:02 ; Start 12/22/16 at 21:00 Hydralazine HCl (Apresoline) 10 mg PRN Q4HRS PRN IVP ELEVATED BP, SEE COMMENTS ; Start 12/22/16 at 15:15 Famotidine (Pepcid) 20 mg BID IVP ; Start 12/22/16 at 21:00; Status UNV Enoxaparin Sodium (Lovenox 40mg Syringe) 40 mg Q24H SQ Last administered on 16:55; Start 12/22/16 at 16:00 Cetirizine HCl (Zyrtec) 10 mg DAILY PO Last administered on 12/25/16 10:21; Start 12/23/16 at 09:00 Fluticasone Propionate (Flonase) 2 spray DAILY NS Last administered on 08:16; Start 12/23/16 at 09:00 Scopolamine (Transderm-Scop) 1 patch Q3DAYS TD Last administered on 12/25/16 10 :21; Start 12/22/16 at 21:00 Alprazolam (Xanax) 0.5 mg PRN Q6HRS PRN PO ANXIETY / AGITATION Last administered on 12/24/16 20:02; Start 12/22/16 at 20:45 Albuterol/ Ipratropium (Duoneb) 3 ml Q4HRS NEB Last administered on 12/25/16 10 :54; Start 12/23/16 at 04:00 Albuterol/ Ipratropium (Duoneb) 3 ml 1X ONCE NEB Last administered on 01:22; Start 12/23/16 at 01:30; Stop 12/23/16 at 01:31; Status DC Furosemide (Lasix) 80 mg DAILY PO Last administered on 12/25/16 10:21; Start at 09:00 Acetaminophen (Tylenol) 650 mg PRN Q6HRS PRN PO MILD PAIN / TEMP Last administered on 12/24/16 12:59; Start 12/24/16 at 08:00 Albuterol Sulfate (Ventolin Neb Soln) 2.5 mg PRN Q4HRS PRN NEB SHORTNESS OF BREATH; Start 12/24/16 at 08:00 Potassium Chloride (Klor-Con) 40 meq 1X ONCE PO Last administered on 12:58; Start 12/24/16 at 09:00; Stop 12/24/16 at 09:01; Status DC Potassium Chloride (Klor-Con) 20 meq DAILYWBKFT PO Last administered on 10:21; Start 12/25/16 at 08:00 Lactobacillus Acidophilus (Bacid, [place]-Bid) 1 tab DAILY PO Last administered on 12/25/16 10:22; Start 12/24/16 at 11:30 Prednisone (Prednisone) 40 mg DAILY PO Last administered on 12/25/16 10:22; Start 12/24/16 at 11:00 Doxycycline Hyclate 100 mg 100 mg BID PO ; Start 12/24/16 at 21:00; Stop at 21:00; Status DC Levofloxacin/ Dextrose 150 ml @ 100 mls/hr Q24H IV Last administered on 14:30; Start 12/24/16 at 14:00 Vancomycin HCl/ Sodium Chloride (Iv Sodium Chloride 0.9% 500ml Bag) 500 ml @ 250 mls/hr Q12H IV ; Start 12/24/16 at 17:30; Stop 12/24/16 at 17:30; Status DC Vancomycin HCl 1 each 1 each PRN DAILY PRN MC SEE COMMENTS Last administered on 12/24/16 20:22; Start 12/24/16 at 17:30 Vancomycin HCl/ Sodium Chloride (Iv Sodium Chloride 0.9% 500ml Bag) 500 ml @ 250 mls/hr 1X ONCE IV Last administered on 12/24/16 20:06; Start 12/24/16 at 18:00; Stop 12/24/16 at 19:59; Status DC Vancomycin HCl 1 each 1 each 1X ONCE MC ; Start 12/25/16 at 19:30; Stop 12/25/16 at 19:31 Vancomycin HCl/ Sodium Chloride (Iv Sodium Chloride 0.9% 500ml Bag) 500 ml @ 250 mls/hr Q8H IV Last administered on 12/25/16 03:53; Start 12/25/16 at 04:00 Active Scripts Active Cepacol Sore Throat Lozenge (Benzocaine/Menthol) 1 Each Lozenge 1 Analia PO PRN Q2HRS PRN Benzonatate 100 Mg Capsule 100 Mg PO TID PRN Promethazine-Codeine Syrup (Promethazine Hcl/Codeine) 118 Ml Syrup 5 Ml PO PRN Q4HRS PRN Mucinex (Guaifenesin) 600 Mg Tablet.er 1 Tab PO BID Reported Zyrtec (Cetirizine Hcl) 10 Mg Tablet 1 Tab PO DAILY Xanax (Alprazolam) 0.5 Mg Tablet 0.5 Mg PO PRN Q6HRS PRN Robitussin Cough-Chest Dm Liq (Guaifenesin/Dextromethorphan) 118 Ml Liquid 118 Ml PO Transderm-Scop (Scopolamine) 1 Each Patch.td72 1 Patch TP Q3DAYS Protonix (Pantoprazole Sodium) 40 Mg Granpkt.dr 40 Mg PO DAILY Lipitor (Atorvastatin Calcium) 10 Mg Tablet 0.5 Tab PO QHS Potassium Chloride 20 Meq Tablet.er 20 Meq PO DAILY Aspirin 325 Mg Tablet 1 Tab PO DAILY Aldactone (Spironolactone) 50 Mg Tablet 1 Tab PO DAILY Guaifenesin Dm Syrup (Guaifenesin/Dextromethorphan) 5 Ml Syrup 10 Ml PO PRN Q6HRS PRN Flonase Allergy Relief (Fluticasone Propionate) 9.9 Ml Horse Shoe.susp 2 Sprays NS DAILY Cardizem Cd (Diltiazem Hcl) 240 Mg Cap.er.24h 1 Cap PO DAILY Albuterol Sulfate Neb Soln (Albuterol Sulfate) 2.5 Mg/3 Ml Vial.neb 1 Vial NEB PRN Q2HRS PRN Aspirin 325 Mg Tablet 1 Tab PO DAILY Duoneb 0.5-3(2.5) Mg/3 Ml (Albuterol/Ipratropium) 3 Ml Ampul.neb 3 Ml IH Q4HRS Symbicort 160-4.5 Mcg Inhaler (Budesonide/Formoterol Fumarate) 10.2 Gm Hfa.aer.ad 2 Puff IH BID Furosemide 40 Mg Tablet 80 Mg PO DAILY Nexium Capsule (Esomeprazole Magnesium) 40 Mg Capsule.dr 40 Mg PO DAILY Lovastatin 20 Mg Tablet 20 Mg PO DAILY Tamsulosin Hcl 0.4 Mg Cap.er.24h 0.4 Mg PO DAILY Losartan Potassium 50 Mg Tablet 100 Mg PO DAILY Vitals/I & O Vital Sign - Last 24 Hours 12/24/16 12/24/16 12/24/16 12/24/16 13:15 13:16 15:00 16:50 Temp 101.1 101.1 102.2 98.4 101.1 101.1 102.2 98.4 Pulse 124 126 106 90 Resp 18 B/P 80/43 117/60 84/33 110/65 Pulse Ox 90 O2 Delivery Nasal Cannula O2 Flow Rate 4.0 4.0 12/24/16 12/24/16 12/24/16 12/24/16 17:08 17:13 19:00 19:21 Temp 97.9 97.9 Pulse 93 Resp 18 B/P 89/48 Pulse Ox 95 93 94 O2 Delivery Nasal Cannula BiPAP/CPAP Nasal Cannula Nasal Cannula O2 Flow Rate 4.0 4.0 4.0 12/24/16 12/24/16 12/24/16 12/24/16 20:00 23:00 23:37 23:41 Temp 97.7 97.7 Pulse 89 Resp 18 B/P 102/60 Pulse Ox 94 O2 Delivery Nasal Cannula Nasal Cannula Nasal Cannula BiPAP/CPAP O2 Flow Rate 4.0 4.0 4.0 12/25/16 12/25/16 12/25/16 12/25/16 01:01 03:00 03:44 07:00 Temp 97.6 97.8 97.6 97.8 Pulse 74 87 Resp 18 22 B/P 102/59 122/65 Pulse Ox 96 94 O2 Delivery BiPAP/CPAP BiPAP/CPAP BiPAP/CPAP Nasal Cannula O2 Flow Rate 4.0 12/25/16 12/25/16 12/25/16 12/25/16 07:26 07:30 10:20 10:55 Pulse 87 B/P 122/65 Pulse Ox 95 O2 Delivery Nasal Cannula Nasal Cannula Nasal Cannula O2 Flow Rate 4.0 4.0 4.0 12/25/16 11:00 Temp 97.6 97.6 Pulse 84 Resp 22 B/P 126/63 Pulse Ox 96 O2 Delivery Nasal Cannula O2 Flow Rate 4.0 Intake and Output 12/24/16 12/24/16 12/25/16 15:00 23:00 07:00 Intake Total 1015 ml Output Total 153 ml 200 ml Balance -153 ml 815 ml DAVID KEBEDE MD Dec 25, 2016 11:58
[2016-12-25] MEDS: FLUTICASONE 50MCG/NASAL SPRAY 16GM BOTTLE. NS SCH (12:54)
[2016-12-25] MEDS: ENOXAPARIN 40 MG/0.4 ML DISP.SYRIN. SQ SCH (14:11)
[2016-12-25 15:00] VITALS: BP 97/46
--- NOTE | 2016-12-25 15:23 | PDOC ---
PULMONARY PROGRESS NOTES Subjective Pt with fever no increase soa Vitals Vital Signs Date Time Temp Pulse Resp B/P Pulse Ox O2 Delivery O2 Flow Rate FiO2 12/25/16 15:12 Nasal Cannula 4.0 12/25/16 15:00 97.5 102 20 97/46 90 97.5 ROS: No Nausea, No Chest Pain, No Abdominal Pain, No Increase Cough General: Alert, No acute distress Lungs: Wheezing (BL BASIlar mild wheezing) Cardiovascular: S1, S2 Abdomen: Soft, Non-tender Neuro Exam: Alert Extremities: No Edema, Other Skin: Warm Labs Laboratory Tests Test 12/24/16 03:05 12/24/16 13:10 12/24/16 13:20 12/25/16 04:45 White Blood Count 9.8x10^3/uL (4.0-11.0) 26.8x10^3/uL (4.0-11.0) Red Blood Count 4.65x10^6/uL (4.30-5.70) 4.54x10^6/uL (4.30-5.70) Hemoglobin 12.5g/dL (13.0-17.5) 12.0g/dL (13.0-17.5) Hematocrit 38.8% (39.0-53.0) 37.9% (39.0-53.0) Mean Corpuscular Volume 84fL (79-100) 83fL (79-100) Mean Corpuscular Hemoglobin 27pg (25-35) 27pg (25-35) Mean Corpuscular Hemoglobin Concent 32g/dL (31-37) 32g/dL (31-37) Red Cell Distribution Width 14.4% (11.5-14.5) 14.5% (11.5-14.5) Platelet Count 162x10^3/uL (140-400) 153x10^3/uL (140-400) Neutrophils (%) (Auto) 71% (31-73) 91% (31-73) Lymphocytes (%) (Auto) 18% (24-48) 3% (24-48) Monocytes (%) (Auto) 10% (0-9) 6% (0-9) Eosinophils (%) (Auto) 1% (0-3) 0% (0-3) Basophils (%) (Auto) 1% (0-3) 0% (0-3) Neutrophils # (Auto) 6.9x10^3uL (1.8-7.7) 24.4x10^3uL (1.8-7.7) Lymphocytes # (Auto) 1.7x10^3/uL (1.0-4.8) 0.7x10^3/uL (1.0-4.8) Monocytes # (Auto) 1.0x10^3/uL (0.0-1.1) 1.7x10^3/uL (0.0-1.1) Eosinophils # (Auto) 0.0x10^3/uL (0.0-0.7) 0.0x10^3/uL (0.0-0.7) Basophils # (Auto) 0.1x10^3/uL (0.0-0.2) 0.0x10^3/uL (0.0-0.2) Sodium Level 135mmol/L (136-145) 134mmol/L (136-145) Potassium Level 3.3mmol/L (3.5-5.1) 4.0mmol/L (3.5-5.1) Chloride Level 97mmol/L (98-107) 94mmol/L (98-107) Carbon Dioxide Level 34mmol/L (21-32) 34mmol/L (21-32) Anion Gap 4 (6-14) 6 (6-14) Blood Urea Nitrogen 15mg/dL (8-26) 19mg/dL (8-26) Creatinine 0.7mg/dL (0.7-1.3) 0.8mg/dL (0.7-1.3) Estimated GFR (Cockcroft-Gault) 113.5 97.3 Glucose Level 138mg/dL (70-99) 99mg/dL (70-99) Calcium Level 8.5mg/dL (8.5-10.1) 8.5mg/dL (8.5-10.1) Urine Collection Type Unknown Urine Color Yellow Urine Clarity Clear Urine pH 6.0 Urine Specific [place] 1.010 Urine Protein Negativemg/dL (NEG-TRACE) Urine Glucose (UA) Negativemg/dL (NEG) Urine Ketones (Stick) Negativemg/dL (NEG) Urine Blood Large (NEG) Urine Nitrite Negative (NEG) Urine Bilirubin Negative (NEG) Urine Urobilinogen Dipstick 0.2mg/dL (0.2 mg/dL) Urine Leukocyte Esterase Large (NEG) Urine RBC 20-40/HPF (0-2) Urine WBC 5-10/HPF (0-4) Urine Squamous Epithelial Cells Occ/LPF Urine Bacteria Moderate/HPF (0-FEW) Urine Mucus Slight/LPF Influenza Type A Antigen Negative (NEGATIVE) Influenza Type B Antigen Negative (NEGATIVE) Segmented Neutrophils % 93% (35-66) Band Neutrophils % 5% (0-9) Lymphocytes % 1% (24-48) Monocytes % 1% (0-10) Platelet Estimate Adequate (ADEQUATE) Laboratory Tests Test 12/25/16 04:45 White Blood Count 26.8x10^3/uL (4.0-11.0) Red Blood Count 4.54x10^6/uL (4.30-5.70) Hemoglobin 12.0g/dL (13.0-17.5) Hematocrit 37.9% (39.0-53.0) Mean Corpuscular Volume 83fL (79-100) Mean Corpuscular Hemoglobin 27pg (25-35) Mean Corpuscular Hemoglobin Concent 32g/dL (31-37) Red Cell Distribution Width 14.5% (11.5-14.5) Platelet Count 153x10^3/uL (140-400) Neutrophils (%) (Auto) 91% (31-73) Lymphocytes (%) (Auto) 3% (24-48) Monocytes (%) (Auto) 6% (0-9) Eosinophils (%) (Auto) 0% (0-3) Basophils (%) (Auto) 0% (0-3) Neutrophils # (Auto) 24.4x10^3uL (1.8-7.7) Lymphocytes # (Auto) 0.7x10^3/uL (1.0-4.8) Monocytes # (Auto) 1.7x10^3/uL (0.0-1.1) Eosinophils # (Auto) 0.0x10^3/uL (0.0-0.7) Basophils # (Auto) 0.0x10^3/uL (0.0-0.2) Segmented Neutrophils % 93% (35-66) Band Neutrophils % 5% (0-9) Lymphocytes % 1% (24-48) Monocytes % 1% (0-10) Platelet Estimate Adequate (ADEQUATE) Sodium Level 134mmol/L (136-145) Potassium Level 4.0mmol/L (3.5-5.1) Chloride Level 94mmol/L (98-107) Carbon Dioxide Level 34mmol/L (21-32) Anion Gap 6 (6-14) Blood Urea Nitrogen 19mg/dL (8-26) Creatinine 0.8mg/dL (0.7-1.3) Estimated GFR (Cockcroft-Gault) 97.3 Glucose Level 99mg/dL (70-99) Calcium Level 8.5mg/dL (8.5-10.1) Medications Active Scripts Medications Dose Route/Sig Days Date Category Zyrtec (Cetirizine Hcl) 10 Mg Tablet 1 Tab PO DAILY 12/22/16 Reported Xanax (Alprazolam) 0.5 Mg Tablet 0.5 Mg PO PRN Q6HRS PRN 12/22/16 Reported Robitussin Cough-Chest Dm Liq (Guaifenesin/Dextromethorphan) 118 Ml Liquid 118 Ml PO 12/22/16 Reported Transderm-Scop (Scopolamine) 1 Each Patch.td72 1 Patch TP Q3DAYS 12/22/16 Reported Protonix (Pantoprazole Sodium) 40 Mg Granpkt.dr 40 Mg PO DAILY 12/22/16 Reported Lipitor (Atorvastatin Calcium) 10 Mg Tablet 0.5 Tab PO QHS 12/22/16 Reported Potassium Chloride 20 Meq Tablet.er 20 Meq PO DAILY 12/22/16 Reported Aspirin 325 Mg Tablet 1 Tab PO DAILY 12/22/16 Reported Aldactone (Spironolactone) 50 Mg Tablet 1 Tab PO DAILY 12/22/16 Reported Guaifenesin Dm Syrup (Guaifenesin/Dextromethorphan) 5 Ml Syrup 10 Ml PO PRN Q6HRS PRN 06/01/16 Reported Flonase Allergy Relief (Fluticasone Propionate) 9.9 Ml [place].susp 2 Sprays NS DAILY 06/01/16 Reported Cardizem Cd (Diltiazem Hcl) 240 Mg Cap.er.24h 1 Cap PO DAILY 06/01/16 Reported Albuterol Sulfate Neb Soln (Albuterol Sulfate) 2.5 Mg/3 Ml Vial.neb 1 Vial NEB PRN Q2HRS PRN 06/01/16 Reported Aspirin 325 Mg Tablet 1 Tab PO DAILY 06/01/16 Reported Cepacol Sore Throat Lozenge (Benzocaine/Menthol) 1 Each Lozenge 1 Analia PO PRN Q2HRS PRN 04/23/16 Rx Benzonatate 100 Mg Capsule 100 Mg PO TID PRN 04/23/16 Rx Promethazine-Codeine Syrup (Promethazine Hcl/Codeine) 118 Ml Syrup 5 Ml PO PRN Q4HRS PRN 04/23/16 Rx Duoneb 0.5-3(2.5) Mg/3 Ml (Albuterol/Ipratropium) 3 Ml Ampul.neb 3 Ml IH Q4HRS 10/25/15 Reported Symbicort 160-4.5 Mcg Inhaler (Budesonide/Formoterol Fumarate) 10.2 Gm Hfa.aer.ad 2 Puff IH BID 08/11/15 Reported Furosemide 40 Mg Tablet 40 Mg PO DAILY 08/11/15 Reported Mucinex (Guaifenesin) 600 Mg Tablet.er 1 Tab PO BID 11/23/14 Rx Nexium Capsule (Esomeprazole Magnesium) 40 Mg Capsule.dr 40 Mg PO DAILY 01/18/14 Reported Lovastatin 20 Mg Tablet 20 Mg PO DAILY 01/18/14 Reported Tamsulosin Hcl 0.4 Mg Cap.er.24h 0.4 Mg PO DAILY 01/18/14 Reported Losartan Potassium 50 Mg Tablet 100 Mg PO DAILY 01/18/14 Reported Impression . 1. [id number] hypoxemic hypercapnic respiratory failure. 2. Acute exacerbation of chronic obstructive pulmonary disease. 3. Acute nonspecific bronchitis. 4. Chronic interstitial lung disease/emphysema. 5. History of tobacco dependence. 6. Chronic atrial fibrillation. 7. Obesity. 8. Chronic lower extremity edema, suspect chronic cor pulmonale. Plan . 1. conitnue the same for now, monitor for fever 3. Resume home medications. 4. No need for antibiotics. 5. DVT and GI prophylaxis. 6. Nebulized treatments . GABY RAMSEY MD Dec 25, 2016 15:23
[2016-12-25 19:00] VITALS: BP 125/67
[2016-12-25] MEDS: VANCOMYCIN PER PHARMACY MC PRN (20:02)
[2016-12-25] MEDS: ATORVASTATIN CALCIUM 10 MG TABLET. PO SCH (20:06)
[2016-12-25] MEDS: ALPRAZOLAM 0.5 MG TABLET PO PRN (20:06)
[2016-12-25 23:00] VITALS: BP 137/70
[2016-12-26] MEDS: VANCOMYCIN 1.5 GM in IV NORMAL SALINE 500ML BAG 500 ML IV SCH ×2 (00:21→12:41)
[2016-12-26 03:00] VITALS: BP 109/66
[2016-12-26] MEDS: IPRATRPIUM/ALBUTEROL 0.5/2.5MG 3 ML NEBU. NEB SCH ×6 (03:01→23:39)
[2016-12-26] MEDS: BENZOCAINE/MENTHOL LOZENGE. PO PRN ×2 (04:32→09:03)
[2016-12-26] MEDS: GUAIFENESIN DM 200MG/20MG 10 ML SYRUP. PO PRN ×2 (04:33→20:32)
[2016-12-26] MEDS: ACETAMINOPHEN 325 MG TABLET. PO PRN (04:33)
[2016-12-26] MEDS: ALPRAZOLAM 0.5 MG TABLET PO PRN ×2 (04:33→19:16)
[2016-12-26] MEDS: BENZONATATE 100 MG CAPSULE. PO PRN (04:33)
[2016-12-26 07:00] VITALS: BP 120/58
[2016-12-26] MEDS: PANTOPRAZOLE 40 MG TABLET. PO SCH (07:48)
[2016-12-26] MEDS: FLUTICASONE 50MCG/NASAL SPRAY 16GM BOTTLE. NS SCH (09:01)
[2016-12-26] MEDS: ASPIRIN 325 MG TABLET PO SCH (09:02)
[2016-12-26] MEDS: PREDNISONE 20 MG TABLET PO SCH (09:02)
[2016-12-26] MEDS: GUAIFENESIN ER 600 MG TABLET.ER PO SCH ×2 (09:02→20:21)
[2016-12-26] MEDS: LACTOBACILLUS ACIDOPH & BULGAR 1 TABLET. PO SCH (09:02)
[2016-12-26] MEDS: FUROSEMIDE 40 MG TABLET PO SCH (09:02)
[2016-12-26] MEDS: TAMSULOSIN 0.4 MG CAP.ER.24H. PO SCH (09:03)
[2016-12-26] MEDS: DILTIAZEM HCL 240 MG CAP.ER.24H PO SCH (09:03)
[2016-12-26] MEDS: POTASSIUM CHLORIDE 20 MEQ TABLET.ER. PO SCH (09:03)
[2016-12-26] MEDS: CETIRIZINE HCL 10 MG TABLET PO SCH (09:03)
[2016-12-26 10:52] VITALS: BP 125/61
--- NOTE | 2016-12-26 10:57 | PDOC ---
Subjective: Subjective: Per pt - had some clear stools. Again tells me how stools frequently change consistency and color (some brown, some yellow, some watery, some loose). Again expresses frustration w/ no plans for colonoscopy as inpatient. Breathing stable. Objective: Objective: Per RN - clear, jelly-like stools - this morning had leakage of this en route to restroom. Vital Signs: Vital Signs Date Time Temp Pulse Resp B/P Pulse Ox O2 Delivery O2 Flow Rate FiO2 12/26/16 09:03 84 120/58 12/26/16 07:24 90 Nasal Cannula 2.0 12/26/16 07:00 97.6 20 97.6 Labs: Laboratory Tests Test 12/25/16 19:10 Vancomycin Level Trough 23.6mcg/mL Vancomycin Last Dose Date 12/25/16 Vancomycin Last Dose Time 1200 PE: GEN: NAD, up in chair watching tv LUNGS: decreased anteriorly, nasal cannula HEART: RRR ABD: NABS, S/ND/NT NEURO/PSYCH: A & O 3 A/P: Change in bowel habits - today concerned w/ clear mucousy stool -onset 06/2016 w/o precipitating events, possibly atbx induced w/ chronic resp issues -last colonoscopy w/ Dr. Alexandra 2-3 years ago reportedly normal (FH rectal cancer , personal h/o polyps) -fecal fat WNL, stool cx pending -on probiotics COPD exacerbation -pulm following -- Will review w/ Dr. Reynolds. Previously recommended outpatient colonoscopy. CHARLENE NICHOLAS Dec 26, 2016 10:57
--- NOTE | 2016-12-26 11:55 | PDOC ---
PULMONARY PROGRESS NOTES Subjective pt feels better less soa still coughing Vitals Vital Signs Date Time Temp Pulse Resp B/P Pulse Ox O2 Delivery O2 Flow Rate FiO2 12/26/16 10:54 Nasal Cannula 2.0 12/26/16 10:52 97.8 82 20 125/61 93 97.8 ROS: No Nausea, No Chest Pain, No Abdominal Pain, No Increase Cough General: Alert, No acute distress Lungs: Wheezing (BL BASIlar mild wheezing) Cardiovascular: S1, S2 Abdomen: Soft, Non-tender Neuro Exam: Alert Extremities: No Edema, Other Skin: Warm Labs Laboratory Tests Test 12/24/16 13:10 12/24/16 13:20 12/25/16 04:45 12/25/16 19:10 Urine Collection Type Unknown Urine Color Yellow Urine Clarity Clear Urine pH 6.0 Urine Specific [place] 1.010 Urine Protein Negativemg/dL (NEG-TRACE) Urine Glucose (UA) Negativemg/dL (NEG) Urine Ketones (Stick) Negativemg/dL (NEG) Urine Blood Large (NEG) Urine Nitrite Negative (NEG) Urine Bilirubin Negative (NEG) Urine Urobilinogen Dipstick 0.2mg/dL (0.2 mg/dL) Urine Leukocyte Esterase Large (NEG) Urine RBC 20-40/HPF (0-2) Urine WBC 5-10/HPF (0-4) Urine Squamous Epithelial Cells Occ/LPF Urine Bacteria Moderate/HPF (0-FEW) Urine Mucus Slight/LPF Influenza Type A Antigen Negative (NEGATIVE) Influenza Type B Antigen Negative (NEGATIVE) White Blood Count 26.8x10^3/uL (4.0-11.0) Red Blood Count 4.54x10^6/uL (4.30-5.70) Hemoglobin 12.0g/dL (13.0-17.5) Hematocrit 37.9% (39.0-53.0) Mean Corpuscular Volume 83fL (79-100) Mean Corpuscular Hemoglobin 27pg (25-35) Mean Corpuscular Hemoglobin Concent 32g/dL (31-37) Red Cell Distribution Width 14.5% (11.5-14.5) Platelet Count 153x10^3/uL (140-400) Neutrophils (%) (Auto) 91% (31-73) Lymphocytes (%) (Auto) 3% (24-48) Monocytes (%) (Auto) 6% (0-9) Eosinophils (%) (Auto) 0% (0-3) Basophils (%) (Auto) 0% (0-3) Neutrophils # (Auto) 24.4x10^3uL (1.8-7.7) Lymphocytes # (Auto) 0.7x10^3/uL (1.0-4.8) Monocytes # (Auto) 1.7x10^3/uL (0.0-1.1) Eosinophils # (Auto) 0.0x10^3/uL (0.0-0.7) Basophils # (Auto) 0.0x10^3/uL (0.0-0.2) Segmented Neutrophils % 93% (35-66) Band Neutrophils % 5% (0-9) Lymphocytes % 1% (24-48) Monocytes % 1% (0-10) Platelet Estimate Adequate (ADEQUATE) Sodium Level 134mmol/L (136-145) Potassium Level 4.0mmol/L (3.5-5.1) Chloride Level 94mmol/L (98-107) Carbon Dioxide Level 34mmol/L (21-32) Anion Gap 6 (6-14) Blood Urea Nitrogen 19mg/dL (8-26) Creatinine 0.8mg/dL (0.7-1.3) Estimated GFR (Cockcroft-Gault) 97.3 Glucose Level 99mg/dL (70-99) Calcium Level 8.5mg/dL (8.5-10.1) Vancomycin Level Trough 23.6mcg/mL (10.0-20.0) Vancomycin Last Dose Date 12/25/16 Vancomycin Last Dose Time 1200 Laboratory Tests Test 12/25/16 19:10 Vancomycin Level Trough 23.6mcg/mL (10.0-20.0) Vancomycin Last Dose Date 12/25/16 Vancomycin Last Dose Time 1200 Medications Active Scripts Medications Dose Route/Sig Days Date Category Zyrtec (Cetirizine Hcl) 10 Mg Tablet 1 Tab PO DAILY 12/22/16 Reported Xanax (Alprazolam) 0.5 Mg Tablet 0.5 Mg PO PRN Q6HRS PRN 12/22/16 Reported Robitussin Cough-Chest Dm Liq (Guaifenesin/Dextromethorphan) 118 Ml Liquid 118 Ml PO 12/22/16 Reported Transderm-Scop (Scopolamine) 1 Each Patch.td72 1 Patch TP Q3DAYS 12/22/16 Reported Protonix (Pantoprazole Sodium) 40 Mg Granpkt.dr 40 Mg PO DAILY 12/22/16 Reported Lipitor (Atorvastatin Calcium) 10 Mg Tablet 0.5 Tab PO QHS 12/22/16 Reported Potassium Chloride 20 Meq Tablet.er 20 Meq PO DAILY 12/22/16 Reported Aspirin 325 Mg Tablet 1 Tab PO DAILY 12/22/16 Reported Aldactone (Spironolactone) 50 Mg Tablet 1 Tab PO DAILY 12/22/16 Reported Guaifenesin Dm Syrup (Guaifenesin/Dextromethorphan) 5 Ml Syrup 10 Ml PO PRN Q6HRS PRN 06/01/16 Reported Flonase Allergy Relief (Fluticasone Propionate) 9.9 Ml [place].susp 2 Sprays NS DAILY 06/01/16 Reported Cardizem Cd (Diltiazem Hcl) 240 Mg Cap.er.24h 1 Cap PO DAILY 06/01/16 Reported Albuterol Sulfate Neb Soln (Albuterol Sulfate) 2.5 Mg/3 Ml Vial.neb 1 Vial NEB PRN Q2HRS PRN 06/01/16 Reported Aspirin 325 Mg Tablet 1 Tab PO DAILY 06/01/16 Reported Cepacol Sore Throat Lozenge (Benzocaine/Menthol) 1 Each Lozenge 1 Analia PO PRN Q2HRS PRN 04/23/16 Rx Benzonatate 100 Mg Capsule 100 Mg PO TID PRN 04/23/16 Rx Promethazine-Codeine Syrup (Promethazine Hcl/Codeine) 118 Ml Syrup 5 Ml PO PRN Q4HRS PRN 04/23/16 Rx Duoneb 0.5-3(2.5) Mg/3 Ml (Albuterol/Ipratropium) 3 Ml Ampul.neb 3 Ml IH Q4HRS 10/25/15 Reported Symbicort 160-4.5 Mcg Inhaler (Budesonide/Formoterol Fumarate) 10.2 Gm Hfa.aer.ad 2 Puff IH BID 08/11/15 Reported Furosemide 40 Mg Tablet 40 Mg PO DAILY 08/11/15 Reported Mucinex (Guaifenesin) 600 Mg Tablet.er 1 Tab PO BID 11/23/14 Rx Nexium Capsule (Esomeprazole Magnesium) 40 Mg Capsule.dr 40 Mg PO DAILY 01/18/14 Reported Lovastatin 20 Mg Tablet 20 Mg PO DAILY 01/18/14 Reported Tamsulosin Hcl 0.4 Mg Cap.er.24h 0.4 Mg PO DAILY 01/18/14 Reported Losartan Potassium 50 Mg Tablet 100 Mg PO DAILY 01/18/14 Reported Impression . 1. [id number] hypoxemic hypercapnic respiratory failure. 2. Acute exacerbation of chronic obstructive pulmonary disease. 3. Acute nonspecific bronchitis. 4. Chronic interstitial lung disease/emphysema. 5. History of tobacco dependence. 6. Chronic atrial fibrillation. 7. Obesity. 8. Chronic lower extremity edema, suspect chronic cor pulmonale. Plan . afebrile ok to d/c follow up in office GABY Mon MD Dec 26, 2016 11:55
--- NOTE | 2016-12-26 12:04 | PDOC ---
PROGRESS NOTES Chief Complaint Chief Complaint 1. Acute hypoxic respiratory failure needing NIPPV and bagging at the scene 1.Acute bronchitis 2. AECOPD, severe 3. PRev smoker (quit 2 yrs ago) 4. Obesity 5. Salazar Dermatitis face, better 6. Superficial dermatitis, intertriginous areas 7. Obesity 8. MIld to mod PCM 9./ GERD 10. LEg edema 12. Scrotal swelling, resolved 13. Post nasal drip plan: 1. fu with pulm 2. add prednisone. no abx as per pulm 3. duoneb hope dc in 1-2 ds dvt, gi ppx PTOT replete k History of Present Illness History of Present Illness Working with PT/OT now NO change wants to have c scope while in house bec it will be hard for him to ff up as OP EARLIER ENTRY: needd BIPAP last night Up in chair NO wheezing but very diminished BS In depth conversation with him today Knows he only has 20-25% lung functioning Never was on hospice but palliative introduced at one point Thinking about lung transplant - we talked about qualifications etc Quit smoking 2 yrs ago, smoked since age 18 (everybody in family almost smoked) Worried his wont be able to take care of him anymore- has now RA Did actually pretty well with PT -no SNU needs Frustrated he cant get the cscope while inpt- he thinks he should have it done while here - hx rectal CA immediate famil;y? Still doing loose stools Depressed, he cant even drive his rather new car (2013) PLAn: CPM Counselling provided today, heavy Will discuss with GI c scope issues Vitals Vitals Vital Signs Date Time Temp Pulse Resp B/P Pulse Ox O2 Delivery O2 Flow Rate FiO2 12/26/16 10:54 Nasal Cannula 2.0 12/26/16 10:52 97.8 82 20 125/61 93 97.8 Physical Exam General: Alert, Oriented X3 Heart: Regular rate Lungs: Wheezing (BL BASIlar mild wheezing) Abdomen: Normal bowel sounds, Soft, No tenderness, No hepatosplenomegaly, No masses Extremities: No clubbing, No cyanosis, No edema, Normal pulses, No tenderness/ swelling Skin: No rashes, No breakdown, No significant lesion Labs LABS Laboratory Tests Test 12/25/16 19:10 Vancomycin Level Trough 23.6mcg/mL (10.0-20.0) Vancomycin Last Dose Date 12/25/16 Vancomycin Last Dose Time 1200 Review of Systems Review of Systems liquid stools, cough, soa , no inc cp, no emesis Assessment and Plan Assessmemt and Plan Problems Medical Problems: (1) Acute respiratory distress Status: Acute (2) COPD with acute exacerbation Status: Acute Problems: Comment Review of Relevant I have reviewed the following items cindy (where applicable) has been applied. Labs Laboratory Tests Test 12/24/16 13:10 12/24/16 13:20 12/25/16 04:45 12/25/16 19:10 Urine Collection Type Unknown Urine Color Yellow Urine Clarity Clear Urine pH 6.0 Urine Specific [place] 1.010 Urine Protein Negativemg/dL (NEG-TRACE) Urine Glucose (UA) Negativemg/dL (NEG) Urine Ketones (Stick) Negativemg/dL (NEG) Urine Blood Large (NEG) Urine Nitrite Negative (NEG) Urine Bilirubin Negative (NEG) Urine Urobilinogen Dipstick 0.2mg/dL (0.2 mg/dL) Urine Leukocyte Esterase Large (NEG) Urine RBC 20-40/HPF (0-2) Urine WBC 5-10/HPF (0-4) Urine Squamous Epithelial Cells Occ/LPF Urine Bacteria Moderate/HPF (0-FEW) Urine Mucus Slight/LPF Influenza Type A Antigen Negative (NEGATIVE) Influenza Type B Antigen Negative (NEGATIVE) White Blood Count 26.8x10^3/uL (4.0-11.0) Red Blood Count 4.54x10^6/uL (4.30-5.70) Hemoglobin 12.0g/dL (13.0-17.5) Hematocrit 37.9% (39.0-53.0) Mean Corpuscular Volume 83fL (79-100) Mean Corpuscular Hemoglobin 27pg (25-35) Mean Corpuscular Hemoglobin Concent 32g/dL (31-37) Red Cell Distribution Width 14.5% (11.5-14.5) Platelet Count 153x10^3/uL (140-400) Neutrophils (%) (Auto) 91% (31-73) Lymphocytes (%) (Auto) 3% (24-48) Monocytes (%) (Auto) 6% (0-9) Eosinophils (%) (Auto) 0% (0-3) Basophils (%) (Auto) 0% (0-3) Neutrophils # (Auto) 24.4x10^3uL (1.8-7.7) Lymphocytes # (Auto) 0.7x10^3/uL (1.0-4.8) Monocytes # (Auto) 1.7x10^3/uL (0.0-1.1) Eosinophils # (Auto) 0.0x10^3/uL (0.0-0.7) Basophils # (Auto) 0.0x10^3/uL (0.0-0.2) Segmented Neutrophils % 93% (35-66) Band Neutrophils % 5% (0-9) Lymphocytes % 1% (24-48) Monocytes % 1% (0-10) Platelet Estimate Adequate (ADEQUATE) Sodium Level 134mmol/L (136-145) Potassium Level 4.0mmol/L (3.5-5.1) Chloride Level 94mmol/L (98-107) Carbon Dioxide Level 34mmol/L (21-32) Anion Gap 6 (6-14) Blood Urea Nitrogen 19mg/dL (8-26) Creatinine 0.8mg/dL (0.7-1.3) Estimated GFR (Cockcroft-Gault) 97.3 Glucose Level 99mg/dL (70-99) Calcium Level 8.5mg/dL (8.5-10.1) Vancomycin Level Trough 23.6mcg/mL (10.0-20.0) Vancomycin Last Dose Date 12/25/16 Vancomycin Last Dose Time 1200 Laboratory Tests Test 12/25/16 19:10 Vancomycin Level Trough 23.6mcg/mL (10.0-20.0) Vancomycin Last Dose Date 12/25/16 Vancomycin Last Dose Time 1200 Microbiology 12/24/16 Blood Culture - Preliminary, Resulted NO GROWTH AFTER 1 DAY 12/24/16 Gram Stain - Final, Complete 12/24/16 Urine Culture - Final, Complete 12/24/16 Urine Culture Result 1 (JOSE) - Final, Complete 12/24/16 Antimicrobic Susceptibility - Final, Complete Medications Current Medications Methylprednisolone Sodium Succinate (Solu-Medrol 125mg Vial) 125 mg 1X ONCE IV Last administered on 12/22/16t 13:14; Start 12/22/16 at 13:00; Stop 12/22/16 at 13:01; Status DC Albuterol/ Ipratropium 3 ml 3 ml 1X ONCE NEB Last administered on 12/22/16 13 :36; Start 12/22/16 at 13:00; Stop 12/22/16 at 13:01; Status DC Sodium Chloride (Iv Sodium Chloride 0.9% 500ml Bag) 500 ml @ 500 mls/hr 1X ONCE IV Last administered on 12/22/16 13:15; Start 12/22/16 at 13:00; Stop at 13:59; Status DC Lorazepam (Ativan) 0.5 mg 1X ONCE IV Last administered on 12/22/16 13:14; Start 12/22/16 at 13:00; Stop 12/22/16 at 13:01; Status DC Ondansetron HCl 4 mg 4 mg PRN Q8HRS PRN IV NAUSEA/VOMITING; Start 12/22/16 at 13:45; Stop 12/22/16 at 15:07; Status DC Sodium Chloride (Iv Sodium Chloride 0.9% 1000ml Bag) 1,000 ml @ 100 mls/hr Q10H IV Last administered on 12/23/16 09:53; Start 12/22/16 at 14:00; Stop at 10:32; Status DC Acetaminophen (Tylenol) 650 mg PRN Q4HRS PRN PO FEVER; Start 12/22/16 at 13:45 ; Stop 12/23/16 at 13:44; Status DC Ondansetron HCl (Zofran) 4 mg PRN Q6HRS PRN IV NAUSEA/VOMITING; Start 12/22/16 at 15:05 Guaifenesin (Mucinex) 600 mg BID PO Last administered on 12/26/16 09:02; Start 12/22/16 at 21:00 Guaifenesin (Robitussin Dm) 10 ml PRN QID PRN PO COUGH Last administered on 12/26 04:33; Start 12/22/16 at 17:00 Albuterol/ Ipratropium (Duoneb) 3 ml RTQID NEB Last administered on 12/22/16 20:39; Start 12/22/16 at 16:00; Stop 12/23/16 at 00:57; Status DC Aspirin (Yolette Aspirin) 325 mg DAILY PO Last administered on 12/26/16 09:02; Start 12/22/16 at 16:00 Throat Lozenges (Cepacol Sore Throat Lozenge) 1 analia PRN Q2HRS PRN PO SORE THROAT Last administered on 12/26/16 09:03; Start 12/22/16 at 15:15 Benzonatate (Tessalon Perle) 100 mg PRN TID PRN PO COUGH Last administered on 04:33; Start 12/22/16 at 15:15 Diltiazem HCl (Cardizem 24hr Cd) 240 mg DAILY PO Last administered on 12/26/16 09:03; Start 12/22/16 at 16:00 Furosemide (Lasix) 40 mg DAILY PO Last administered on 12/23/16 08:29; Start 12/22/16 at 16:00; Stop 12/23/16 at 10:32; Status DC Losartan Potassium (Cozaar) 100 mg DAILY PO Last administered on 12/24/16 08: 20; Start 12/22/16 at 16:00; Stop 12/24/16 at 17:20; Status DC Tamsulosin HCl (Flomax) 0.4 mg DAILY PO Last administered on 12/26/16 09:03; Start 12/22/16 at 16:00 Pantoprazole Sodium (Protonix) 40 mg DAILYAC PO Last administered on 12/26/16 07:48; Start 12/23/16 at 07:30 Atorvastatin Calcium (Lipitor) 5 mg QHS PO Last administered on 12/25/16 20:06 ; Start 12/22/16 at 21:00 Hydralazine HCl (Apresoline) 10 mg PRN Q4HRS PRN IVP ELEVATED BP, SEE COMMENTS ; Start 12/22/16 at 15:15 Famotidine (Pepcid) 20 mg BID IVP ; Start 12/22/16 at 21:00; Status UNV Enoxaparin Sodium (Lovenox 40mg Syringe) 40 mg Q24H SQ Last administered on 12/25 14:11; Start 12/22/16 at 16:00 Cetirizine HCl (Zyrtec) 10 mg DAILY PO Last administered on 12/26/16 09:03; Start 12/23/16 at 09:00 Fluticasone Propionate (Flonase) 2 spray DAILY NS Last administered on 09:01; Start 12/23/16 at 09:00 Scopolamine (Transderm-Scop) 1 patch Q3DAYS TD Last administered on 12/25/16 10 :21; Start 12/22/16 at 21:00 Alprazolam (Xanax) 0.5 mg PRN Q6HRS PRN PO ANXIETY / AGITATION Last administered on 12/26/16 04:33; Start 12/22/16 at 20:45 Albuterol/ Ipratropium (Duoneb) 3 ml Q4HRS NEB Last administered on 12/26/16 10 :53; Start 12/23/16 at 04:00 Albuterol/ Ipratropium (Duoneb) 3 ml 1X ONCE NEB Last administered on 01:22; Start 12/23/16 at 01:30; Stop 12/23/16 at 01:31; Status DC Furosemide (Lasix) 80 mg DAILY PO Last administered on 12/26/16 09:02; Start at 09:00 Acetaminophen (Tylenol) 650 mg PRN Q6HRS PRN PO MILD PAIN / TEMP Last administered on 12/26/16 04:33; Start 12/24/16 at 08:00 Albuterol Sulfate (Ventolin Neb Soln) 2.5 mg PRN Q4HRS PRN NEB SHORTNESS OF BREATH; Start 12/24/16 at 08:00 Potassium Chloride (Klor-Con) 40 meq 1X ONCE PO Last administered on 12:58; Start 12/24/16 at 09:00; Stop 12/24/16 at 09:01; Status DC Potassium Chloride (Klor-Con) 20 meq DAILYWBKFT PO Last administered on 09:03; Start 12/25/16 at 08:00 Lactobacillus Acidophilus (Bacid, [place]-Bid) 1 tab DAILY PO Last administered on 12/26/16 09:02; Start 12/24/16 at 11:30 Prednisone (Prednisone) 40 mg DAILY PO Last administered on 12/26/16 09:02; Start 12/24/16 at 11:00 Doxycycline Hyclate 100 mg 100 mg BID PO ; Start 12/24/16 at 21:00; Stop at 21:00; Status DC Levofloxacin/ Dextrose 150 ml @ 100 mls/hr Q24H IV Last administered on 14:11; Start 12/24/16 at 14:00 Vancomycin HCl/ Sodium Chloride (Iv Sodium Chloride 0.9% 500ml Bag) 500 ml @ 250 mls/hr Q12H IV ; Start 12/24/16 at 17:30; Stop 12/24/16 at 17:30; Status DC Vancomycin HCl 1 each 1 each PRN DAILY PRN MC SEE COMMENTS Last administered on 12/25/16 20:02; Start 12/24/16 at 17:30 Vancomycin HCl/ Sodium Chloride (Iv Sodium Chloride 0.9% 500ml Bag) 500 ml @ 250 mls/hr 1X ONCE IV Last administered on 12/24/16 20:06; Start 12/24/16 at 18:00; Stop 12/24/16 at 19:59; Status DC Vancomycin HCl 1 each 1 each 1X ONCE MC Last administered on 12/25/16 19:30; Start 12/25/16 at 19:30; Stop 12/25/16 at 19:31; Status DC Vancomycin HCl 1.5 gm/Sodium Chloride 500 ml @ 250 mls/hr Q8H IV Last administered on 12/25/16 12:53; Start 12/25/16 at 04:00; Stop 12/25/16 at 20:00; Status DC Vancomycin HCl/ Sodium Chloride (Iv Sodium Chloride 0.9% 500ml Bag) 500 ml @ 250 mls/hr Q12H IV Last administered on 12/26/16 00:21; Start 12/26/16 at 00:00 Active Scripts Active Cepacol Sore Throat Lozenge (Benzocaine/Menthol) 1 Each Lozenge 1 Analia PO PRN Q2HRS PRN Benzonatate 100 Mg Capsule 100 Mg PO TID PRN Promethazine-Codeine Syrup (Promethazine Hcl/Codeine) 118 Ml Syrup 5 Ml PO PRN Q4HRS PRN Mucinex (Guaifenesin) 600 Mg Tablet.er 1 Tab PO BID Reported Zyrtec (Cetirizine Hcl) 10 Mg Tablet 1 Tab PO DAILY Xanax (Alprazolam) 0.5 Mg Tablet 0.5 Mg PO PRN Q6HRS PRN Robitussin Cough-Chest Dm Liq (Guaifenesin/Dextromethorphan) 118 Ml Liquid 118 Ml PO Transderm-Scop (Scopolamine) 1 Each Patch.td72 1 Patch TP Q3DAYS Protonix (Pantoprazole Sodium) 40 Mg Granpkt.dr 40 Mg PO DAILY Lipitor (Atorvastatin Calcium) 10 Mg Tablet 0.5 Tab PO QHS Potassium Chloride 20 Meq Tablet.er 20 Meq PO DAILY Aspirin 325 Mg Tablet 1 Tab PO DAILY Aldactone (Spironolactone) 50 Mg Tablet 1 Tab PO DAILY Guaifenesin Dm Syrup (Guaifenesin/Dextromethorphan) 5 Ml Syrup 10 Ml PO PRN Q6HRS PRN Flonase Allergy Relief (Fluticasone Propionate) 9.9 Ml [place].susp 2 Sprays NS DAILY Cardizem Cd (Diltiazem Hcl) 240 Mg Cap.er.24h 1 Cap PO DAILY Albuterol Sulfate Neb Soln (Albuterol Sulfate) 2.5 Mg/3 Ml Vial.neb 1 Vial NEB PRN Q2HRS PRN Aspirin 325 Mg Tablet 1 Tab PO DAILY Duoneb 0.5-3(2.5) Mg/3 Ml (Albuterol/Ipratropium) 3 Ml Ampul.neb 3 Ml IH Q4HRS Symbicort 160-4.5 Mcg Inhaler (Budesonide/Formoterol Fumarate) 10.2 Gm Hfa.aer.ad 2 Puff IH BID Furosemide 40 Mg Tablet 80 Mg PO DAILY Nexium Capsule (Esomeprazole Magnesium) 40 Mg Capsule.dr 40 Mg PO DAILY Lovastatin 20 Mg Tablet 20 Mg PO DAILY Tamsulosin Hcl 0.4 Mg Cap.er.24h 0.4 Mg PO DAILY Losartan Potassium 50 Mg Tablet 100 Mg PO DAILY Vitals/I & O Vital Sign - Last 24 Hours 12/25/16 12/25/16 12/25/16 12/25/16 15:00 15:12 19:00 20:00 Temp 97.5 97.9 97.5 97.9 Pulse 102 90 Resp 20 20 B/P 97/46 125/67 Pulse Ox 90 96 O2 Delivery Nasal Cannula Nasal Cannula Nasal Cannula Nasal Cannula O2 Flow Rate 4.0 4.0 4.0 4.0 12/25/16 12/25/16 12/25/16 12/26/16 20:12 23:00 23:34 03:00 Temp 97.9 97.5 97.9 97.5 Pulse 70 80 Resp 18 18 B/P 137/70 109/66 Pulse Ox 96 92 95 90 O2 Delivery Nasal Cannula Nasal Cannula Nasal Cannula Nasal Cannula O2 Flow Rate 4.0 4.0 2.0 4.0 12/26/16 12/26/16 12/26/16 12/26/16 03:02 07:00 07:24 07:55 Temp 97.6 97.6 Pulse 84 Resp 20 B/P 120/58 Pulse Ox 92 90 O2 Delivery BiPAP/CPAP Nasal Cannula Nasal Cannula Nasal Cannula O2 Flow Rate 4.0 2.0 4.0 12/26/16 12/26/16 12/26/16 09:03 10:52 10:54 Temp 97.8 97.8 Pulse 84 82 Resp 20 B/P 120/58 125/61 Pulse Ox 93 O2 Delivery Nasal Cannula Nasal Cannula O2 Flow Rate 4.0 2.0 Intake and Output 12/25/16 12/25/16 12/26/16 15:00 23:00 07:00 Intake Total 572 ml Output Total 1150 ml 400 ml Balance -1150 ml 172 ml DAVID KBEEDE MD Dec 26, 2016 12:04
[2016-12-26] MEDS: LEVOFLOXACIN 250 MG TABLET. PO SCH (14:34)
[2016-12-26 15:00] VITALS: BP 120/66
[2016-12-26] MEDS: ENOXAPARIN 40 MG/0.4 ML DISP.SYRIN. SQ SCH (17:21)
[2016-12-26 19:00] VITALS: BP 109/57
[2016-12-26] MEDS: ATORVASTATIN CALCIUM 10 MG TABLET. PO SCH (20:21)
[2016-12-26 23:00] VITALS: BP 97/58
[2016-12-27 03:00] VITALS: BP 122/71
[2016-12-27] MEDS: IPRATRPIUM/ALBUTEROL 0.5/2.5MG 3 ML NEBU. NEB SCH ×2 (03:45→08:37)
[2016-12-27] MEDS: PANTOPRAZOLE 40 MG TABLET. PO SCH (06:10)
[2016-12-27] MEDS: LEVOFLOXACIN 250 MG TABLET. PO SCH (06:10)
[2016-12-27 06:45] LABS: BASO # 0.1 x10^3/uL (0.0-0.2); BASO % 1 % (0-3); CALCIUM 8.8 mg/dL (8.5-10.1); CREATININE 0.7 mg/dL (0.7-1.3); EOS % 0 % (0-3); GFR 113.5; HEMATOCRIT 38.1 % (39.0-53.0); HEMOGLOBIN 12.4 g/dL (13.0-17.5); LYMPH # 1.9 x10^3/uL (1.0-4.8); LYMPH % 14 % (24-48); MEAN CORPUSCULAR HEMOGLOBIN 27 pg (25-35); MEAN CORPUSCULAR HGB CONC 32 g/dL (31-37); MEAN CORPUSCULAR VOLUME 82 fL (79-100); MONO % 8 % (0-9); NEUT % 77 % (31-73); PLATELET COUNT 164 x10^3/uL (140-400); POTASSIUM 3.4 mmol/L (3.5-5.1); RED BLOOD COUNT 4.65 x10^6/uL (4.30-5.70); WHITE BLOOD COUNT 13.5 x10^3/uL (4.0-11.0)
[2016-12-27 07:00] VITALS: BP 137/84
[2016-12-27] MEDS ORDERED: POTASSIUM CHLORIDE 20 MEQ TABLET.ER. PO ONE (08:15)
[2016-12-27] MEDS: GUAIFENESIN DM 200MG/20MG 10 ML SYRUP. PO PRN (08:45)
[2016-12-27] MEDS: FLUTICASONE 50MCG/NASAL SPRAY 16GM BOTTLE. NS SCH (08:46)
[2016-12-27] MEDS: POTASSIUM CHLORIDE 20 MEQ TABLET.ER. PO SCH (08:47)
[2016-12-27] MEDS: GUAIFENESIN ER 600 MG TABLET.ER PO SCH (08:47)
[2016-12-27] MEDS: ASPIRIN 325 MG TABLET PO SCH (08:47)
[2016-12-27] MEDS: DILTIAZEM HCL 240 MG CAP.ER.24H PO SCH (08:48)
[2016-12-27] MEDS: PREDNISONE 20 MG TABLET PO SCH (08:48)
[2016-12-27] MEDS: LACTOBACILLUS ACIDOPH & BULGAR 1 TABLET. PO SCH (08:48)
[2016-12-27] MEDS: CETIRIZINE HCL 10 MG TABLET PO SCH (08:48)
[2016-12-27] MEDS: FUROSEMIDE 40 MG TABLET PO SCH (08:48)
[2016-12-27] MEDS: TAMSULOSIN 0.4 MG CAP.ER.24H. PO SCH (08:48)
[2016-12-27] MEDS ORDERED: GUAI600T38 PO (09:15)
[2016-12-27] MEDS ORDERED: PRED20TA PO (09:15)
[2016-12-27] MEDS ORDERED: LEVO250T25 PO (09:15)
--- NOTE | 2016-12-27 10:13 | PDOC ---
Subjective: Subjective: Watery stools today (but again mentions how stool consistency changes). Frustrated. Objective: Vital Signs: Vital Signs Date Time Temp Pulse Resp B/P Pulse Ox O2 Delivery O2 Flow Rate FiO2 12/27/16 08:48 82 137/84 12/27/16 08:37 93 Nasal Cannula 2.0 12/27/16 07:00 97.5 18 97.5 Labs: Laboratory Tests Test 12/27/16 06:00 White Blood Count 13.5x10^3/uL Red Blood Count 4.65x10^6/uL Hemoglobin 12.4g/dL Hematocrit 38.1% Mean Corpuscular Volume 82fL Mean Corpuscular Hemoglobin 27pg Mean Corpuscular Hemoglobin Concent 32g/dL Red Cell Distribution Width 15.0% Platelet Count 164x10^3/uL Neutrophils (%) (Auto) 77% Lymphocytes (%) (Auto) 14% Monocytes (%) (Auto) 8% Eosinophils (%) (Auto) 0% Basophils (%) (Auto) 1% Neutrophils # (Auto) 10.5x10^3uL Lymphocytes # (Auto) 1.9x10^3/uL Monocytes # (Auto) 1.1x10^3/uL Eosinophils # (Auto) 0.0x10^3/uL Basophils # (Auto) 0.1x10^3/uL Sodium Level 137mmol/L Potassium Level 3.4mmol/L Chloride Level 96mmol/L Carbon Dioxide Level 37mmol/L Anion Gap 4 Blood Urea Nitrogen 16mg/dL Creatinine 0.7mg/dL Estimated GFR (Cockcroft-Gault) 113.5 Glucose Level 131mg/dL Calcium Level 8.8mg/dL PE: GEN: NAD, up in chair LUNGS: decreased anteriorly w/ nasal cannula HEART: RRR ABD: soft, non-tender NEURO/PSYCH: A & O 3 A/P: Change in bowel habits -reported alternating stool consistency, today concerned w/ watery stools -onset 06/2016 w/o precipitating events, possibly atbx induced w/ chronic resp issues -last colonoscopy w/ Dr. Alexandra 2-3 years ago reportedly normal ( rectal cancer , personal h/o polyps) -fecal fat WNL, stool cx pending? -on probiotics COPD - severe -- I can't find where stool culture was collected - it seems to have dropped from his list. D/w RN - a specimen was sent yesterday but ?not processed. Will order again, hopefully can collect before DC today. If normal culture and stools continue to be watery, could try Imodium or similar. Pt with ongoing frustration re: desire to have colonoscopy while inpatient. CHARLENE NICHOLAS Dec 27, 2016 10:13
--- NOTE | 2016-12-27 10:56 | PDOC3 ---
Discharge Summary [facility] Date of Admission: Dec 22, 2016 Discharge Date: Dec 27, 2016 Admitting Diagnosis 1. Acute hypoxic respiratory failure needing NIPPV and bagging at the scene 1.Acute bronchitis 2. AECOPD, severe 3. PRev smoker (quit 2 yrs ago) 4. Obesity 5. Salazar Dermatitis face, better 6. Superficial dermatitis, intertriginous areas 7. Obesity 8. MIld to mod PCM 9./ GERD 10. LEg edema 12. Scrotal swelling, resolved 13. Post nasal drip 14. mucus loose BM Problems: Final Diagnosis Problems Medical Problems: (1) Acute respiratory distress Status: Acute (2) COPD with acute exacerbation Status: Acute CONSULTS gi pulm Brief Hospital Course Mr. Corbett is a 66 old M with home o2 3L, copd, COMES FOR sob, required bipap in ICU. pt improved with steroid, no abx at the beginning, then fever, levaquin was started. Ucx + for Ecoli. dc home with levaquin for another 5ds, taper steroid. Pt also c/o loose BM with mucus, cdiff pending. GI consulted, no colonoscopy needed at this time point, pt feels frustrated, since last time was 3 years ago. dc time 40min. General: Alert, Oriented X3 Heart: Regular rate Lungs: Wheezing (BL BASIlar mild wheezing) Abdomen: Normal bowel sounds, Soft, No tenderness, No hepatosplenomegaly, No masses Extremities: No clubbing, No cyanosis, No edema, Normal pulses, No tenderness/ swelling Skin: No rashes, No breakdown, No significant lesion Patient History: FHx: COPD (chronic obstructive pulmonary disease) 32 MOTHER G8 SISTER Rectal cancer 33 FATHER (46 yrs ago has colostomy ) Unknown 32 MOTHER () Problems: Disposition HH CONDITION AT DISCHARGE: Improved, Stable Diet regular Scheduled Aspirin (Aspirin) 1 TAB PO DAILY (Reported) Budesonide/Formoterol Fumarate (Symbicort 160-4.5 Mcg Inhaler) 2 PUFF IH BID ( Reported) Cetirizine Hcl (Zyrtec) 1 TAB PO DAILY (Reported) Diltiazem Hcl (Cardizem Cd) 1 CAP PO DAILY (Reported) Esomeprazole Magnesium (Nexium Capsule) 40 MG PO DAILY (Reported) Fluticasone Propionate (Flonase Allergy Relief) 2 SPRAYS NS DAILY (Reported) Furosemide (Furosemide) 80 MG PO DAILY (Reported) Guaifenesin (Mucinex) 1 TAB PO BID Guaifenesin (Mucinex) 600 MG PO BID Ipratropium/Albuterol Sulfate (Duoneb 0.5-3(2.5) Mg/3 Ml) 3 ML IH Q4HRS ( Reported) Levofloxacin (Levaquin) 250 MG PO DAILY06 Losartan Potassium (Losartan Potassium) 100 MG PO DAILY (Reported) Lovastatin (Lovastatin) 20 MG PO DAILY (Reported) Pantoprazole Sodium (Protonix) 40 MG PO DAILY (Reported) Potassium Chloride (Potassium Chloride) 20 MEQ PO DAILY (Reported) Prednisone (Prednisone) 40 MG PO DAILY Scopolamine (Transderm-Scop) 1 PATCH TP Q3DAYS (Reported) Tamsulosin Hcl (Tamsulosin Hcl) 0.4 MG PO DAILY (Reported) Scheduled PRN Albuterol Sulfate (Albuterol Sulfate Neb Soln) 1 VIAL NEB PRN Q2HRS PRN PRN SHORTNESS OF BREATH (Reported) Alprazolam (Xanax) 0.5 MG PO PRN Q6HRS PRN PRN ANXIETY / AGITATION (Reported) Benzocaine/Menthol (Cepacol Sore Throat Lozenge) 1 [place] PO PRN Q2HRS PRN PRN SORE THROAT Benzonatate (Benzonatate) 100 MG PO TID PRN PRN COUGH Guaifenesin/Dextromethorphan (Guaifenesin Dm Syrup) 10 ML PO PRN Q6HRS PRN PRN COUGH (Reported) Promethazine Hcl/Codeine (Promethazine-Codeine Syrup) 5 ML PO PRN Q4HRS PRN PRN COUGH Miscellaneous Medications Guaifenesin/Dextromethorphan (Robitussin Cough-Chest Dm Liq) 118 ML PO (Reported ) Discontinued Medications Aspirin (Aspirin) 1 TAB PO DAILY (Reported) Atorvastatin Calcium (Lipitor) 0.5 TAB PO QHS (Reported) Spironolactone (Aldactone) 1 TAB PO DAILY (Reported) Follow Up gi and pulm in 2 weeks ARACELIS BRICENO MD Dec 27, 2016 10:56
[2016-12-27 11:00] VITALS: BP 127/72
== END 2016-12-27 12:50 | disposition home health service (06) | DRG 189 ==
LOC: ER 12:53 → 1 WEST ICU 13:41 → 4 NORTH 12-23 10:46
PROVIDERS: ADMIT Internal Medicine; ATTEND Internal Medicine
PROC: 5A09357 Assistance with Respiratory Ventilation, Less than 24 Consecutive Hours, Continuous Positive Airway Pressure (ICD-10-PCS; principal; 2016-12-27)
DX: J96.21 Acute and chronic respiratory failure with hypoxia (principal); J44.0 Chronic obstructive pulmonary disease with (acute) lower respiratory infection; J84.9 Interstitial pulmonary disease, unspecified; J44.1 Chronic obstructive pulmonary disease with (acute) exacerbation; J96.22 Acute and chronic respiratory failure with hypercapnia; E66.9 Obesity, unspecified; E78.5 Hyperlipidemia, unspecified; F32.9 Major depressive disorder, single episode, unspecified; F41.9 Anxiety disorder, unspecified; I10 Essential (primary) hypertension; I25.10 Atherosclerotic heart disease of native coronary artery without angina pectoris; I48.2 Chronic atrial fibrillation; J20.9 Acute bronchitis, unspecified; J45.909 Unspecified asthma, uncomplicated; K21.9 Gastro-esophageal reflux disease without esophagitis; K63.5 Polyp of colon; L30.9 Dermatitis, unspecified; N40.0 Benign prostatic hyperplasia without lower urinary tract symptoms; N50.89 Other specified disorders of the male genital organs; Z80.0 Family history of malignant neoplasm of digestive organs; Z68.32 Body mass index [BMI] 32.0-32.9, adult; Z82.5 Family history of asthma and other chronic lower respiratory diseases; Z87.891 Personal history of nicotine dependence; Z90.49 Acquired absence of other specified parts of digestive tract; Z86.010 Personal history of colon polyps; Z88.8 Allergy status to other drugs, medicaments and biological substances
CPT/HCPCS: 36415; 36600; 51702; 71010; 80048; 80202; 81001; 82805; 83880; 84484; 85007; 85027; 87040; 87070; 87086; 87186; 87205; 87641; 87804; 93005; 94640; 94660; 94760; 96374; 96375; J1650; J1956; J2060; J2930; J3370; J7030; J7040; J7512; J7620; 99291-25

== ENCOUNTER 2017-01-21 04:06 | Inpatient (IN) | payer OTHER ==
[~2017-01-21] VITALS: Ht 177.8 cm; Wt 111.2 kg
[~2017-01-21 04:06] MED LIST changes: +ALPR0.5T PO; +ATOR10TA PO; +CETI10TA22 PO; +GUAI-297 PO; +LEVO250T25 PO; +PANT40GR PO; +POTA20TA82 PO; +PRED20TA PO; +SCOP1PAT TP; +SPIR50TA PO
[2017-01-21] MEDS ORDERED: methylPREDNISolone SOD SUCC PF 125 MG/2 ML VIAL. IV ONE (04:15)
[2017-01-21 04:25] LABS: BASO # 0.1 x10^3/uL (0.0-0.2); BASO % 1 % (0-3); EOS % 1 % (0-3); HEMATOCRIT 40.2 % (39.0-53.0); HEMOGLOBIN 12.7 g/dL (13.0-17.5); LYMPH # 2.8 x10^3/uL (1.0-4.8); LYMPH % 22 % (24-48); MEAN CORPUSCULAR HEMOGLOBIN 26 pg (25-35); MEAN CORPUSCULAR HGB CONC 32 g/dL (31-37); MEAN CORPUSCULAR VOLUME 84 fL (79-100); MONO % 12 % (0-9); NEUT % 65 % (31-73); PLATELET COUNT 177 x10^3/uL (140-400); RED CELL DISTRIBUTION WIDTH 15.5 % (11.5-14.5); WHITE BLOOD COUNT 12.7 x10^3/uL (4.0-11.0)
--- NOTE | 2017-01-21 04:25 | PHYS DOC ---
Past Medical History Past Medical History: A-Fib, COPD, Hypertension Additional Past Medical Histor: BACK PAIN, lymphedema, afib with RVR Past Surgical History: Colectomy, Other Additional Past Surgical Histo: RT SHOULDER, BACK Alcohol Use: None Drug Use: None Adult General Chief Complaint Chief Complaint: SHORTNESS OF BREATH HPI HPI This is a 66-year-old male with known history of severe COPD requiring 4 L at home and called EMS to an acute respiratory distress. Upon EMS arrival, patient was saturating in the mid 80s on his usual 4 L in significant respiratory distress. Mesentery administered a DuoNeb treatment and attempt in the placed patient on CPAP but the patient was not tolerating the mask and so he arrives on nonrebreather in acute respiratory distress breathing approximately 25 times a minute. Patient is able to speak but is in moderate distress. He denies any chest pain. Patient states approximately 25 days ago he was admitted for similar type symptoms. He has a persisting cough that has been there chronically. He states he is currently taking Levaquin and steroids for his cough. He denies any fever or chills. Review of Systems Review of Systems Constitutional: Denies fever or chills [] Eyes: Denies change in visual acuity, redness, or eye pain [] HENT: Denies nasal congestion or sore throat [] Respiratory: Has cough, has shortness of breath [] Cardiovascular: No additional information not addressed in HPI [] GI: Denies abdominal pain, nausea, vomiting, bloody stools or diarrhea [] : Denies dysuria or hematuria [] Musculoskeletal: Denies back pain or joint pain [] Integument: Denies rash or skin lesions [] Neurologic: Denies headache, focal weakness or sensory changes [] Endocrine: Denies polyuria or polydipsia [] Current Medications Current Medications Current Medications Medications (Trade) Dose Ordered Sig/Hesham Start Time Stop Time Status Last Admin Dose Admin Methylprednisolone Sodium Succinate (Solu-Medrol 125mg Vial) 125 mg 1X ONCE 01/21/17 04:15 01/21/17 04:49 DC 01/21/17 04:36 125 MG Allergies Allergies Allergies Coded Allergies Type Severity Reaction Last Updated Verified oxycodone Allergy Intermediate Shortness of Air 05/30/16 Yes I S O L A T I O N *CONTACT* Allergy Unknown 12/24/16 Yes Physical Exam Physical Exam Constitutional: Well developed, well nourished, mild distress. [] HENT: Normocephalic, atraumatic, bilateral external ears normal, oropharynx moist, no oral exudates, nose normal. [] Eyes: PERRLA, EOMI, conjunctiva normal, no discharge. [] Neck: Normal range of motion, no tenderness, supple, no stridor. [] Cardiovascular:Heart rate regular rhythm, no murmur [] Lungs & Thorax: Acute respiratory distress with coarse breath sounds bilaterally, tachypnea [] Abdomen: Bowel sounds normal, soft, no tenderness, no masses, no pulsatile masses. [] Skin: Warm, dry, no erythema, no rash. [] Back: No tenderness, no CVA tenderness. [] Extremities: No tenderness, no cyanosis, no clubbing, ROM intact, no edema. [] Neurologic: Alert and oriented X 3, normal motor function, normal sensory function, no focal deficits noted. [] Psychologic: Affect normal, judgement normal, mood normal. [] Current Patient Data Vital Signs Vital Signs Date Time Temp Pulse Resp B/P Pulse Ox O2 Delivery O2 Flow Rate FiO2 01/21/17 04:12 98 BiPAP/CPAP 01/21/17 04:06 98.3 112 26 150/83 15 98.3 Lab Values Laboratory Tests Test 01/21/17 04:08 White Blood Count 12.7x10^3/uL (4.0-11.0) H Red Blood Count 4.80x10^6/uL (4.30-5.70) Hemoglobin 12.7g/dL (13.0-17.5) L Hematocrit 40.2% (39.0-53.0) Mean Corpuscular Volume 84fL (79-100) Mean Corpuscular Hemoglobin 26pg (25-35) Mean Corpuscular Hemoglobin Concent 32g/dL (31-37) Red Cell Distribution Width 15.5% (11.5-14.5) H Platelet Count 177x10^3/uL (140-400) Neutrophils (%) (Auto) 65% (31-73) Lymphocytes (%) (Auto) 22% (24-48) L Monocytes (%) (Auto) 12% (0-9) H Eosinophils (%) (Auto) 1% (0-3) Basophils (%) (Auto) 1% (0-3) Neutrophils # (Auto) 8.2x10^3uL (1.8-7.7) H Lymphocytes # (Auto) 2.8x10^3/uL (1.0-4.8) Monocytes # (Auto) 1.5x10^3/uL (0.0-1.1) H Eosinophils # (Auto) 0.1x10^3/uL (0.0-0.7) Basophils # (Auto) 0.1x10^3/uL (0.0-0.2) Sodium Level 132mmol/L (136-145) L Potassium Level 4.8mmol/L (3.5-5.1) Chloride Level 92mmol/L (98-107) L Carbon Dioxide Level 34mmol/L (21-32) H Anion Gap 6 (6-14) Blood Urea Nitrogen 20mg/dL (8-26) Creatinine 0.8mg/dL (0.7-1.3) Estimated GFR (Cockcroft-Gault) 97.3 Glucose Level 115mg/dL (70-99) H Lactic Acid Level 1.0mmol/L (0.4-2.0) Calcium Level 9.2mg/dL (8.5-10.1) Troponin I Quantitative < 0.017ng/mL (0.000-0.055) Laboratory Tests 01/21/17 04:08 Laboratory Tests 01/21/17 04:08 EKG EKG EKG as interpreted by ar shows a sinus tachycardia with a rate of 109 bpm. There are no obvious signs of ischemia on this EKG. Radiology/Procedures Radiology/Procedures Portable one view of the chest shows a left-sided pleural effusion that has significantly changed from previous x-rays he's had on 12/24/2016 Course & Med Decision Making Course & Med Decision Making Pertinent Labs and Imaging studies reviewed. (See chart for details) 66-year-old male who's having an acute COPD exacerbation and active respiratory distress was immediately placed on Bipap therapy upon arrival. Full laboratory workup will be obtained. EKG is unremarkable at this time and his chest film reveals a mild left sided pleura effusion. Pt will be given a dose of steroids and remain on Bipap therapy while in the ED for approximately one hour and then will be admitted with pulmonology consult. Blood cultures and a lactate will be obtained. The need for admission will be discussed with the hospitalist, Dr. Triana. Blood work reveals slightly elevated white count at 12.7. His lactate is not elevated. He feels much improved upon my reassessment after approximately 30-40 minutes on BiPAP therapy. I believe he will be safe to be admitted to the medical telemetry floor. I updated Dr. Triana about his status and she is in agreement with this plan. Dragon Disclaimer Dragon Disclaimer This electronic medical record was generated, in whole or in part, using a voice recognition dictation system. Departure Departure Impression: Primary Impression: Acute respiratory distress Additional Impressions: COPD with acute exacerbation Pleural effusion Disposition: ADMITTED INPATIENT Admitting Physician: Diamond Triana Condition: STABLE Referrals: SUZAN CLARKE (PCP) Problem Qualifiers JERROD MARK DO Jan 21, 2017 04:25
[2017-01-21] MEDS ORDERED: ACETAMINOPHEN 325 MG TABLET. PO PRN (04:30)
[2017-01-21] MEDS ORDERED: ONDANSETRON PF 4 MG/2 ML VIAL. IV PRN ×2 (04:30→08:59)
[2017-01-21 04:37] LABS: CALCIUM 9.2 mg/dL (8.5-10.1); CREATININE 0.8 mg/dL (0.7-1.3); GFR 97.3; POTASSIUM 4.8 mmol/L (3.5-5.1)
--- NOTE | 2017-01-21 04:58 | ACF ---
Admit Criteria Forms Admit Criteria Forms Admit Criteria Forms COPD Clinical Indications for Admission to Inpatient Care (Place 'X' for any and all applicable criteria): Admission is indicated for ANY ONE of the following (1)(2)(3): [X]I. Acute exacerbation by high-risk comorbidity (e.g., pneumonia, dysrhythmia, heart failure, pleural effusion, pneumothorax COPD Clinical Indications for Admission to Inpatient Care (Place 'X' for any and all applicable criteria): Admission is indicated for ANY ONE of the following (1)(2)(3): [X]I. Acute exacerbation by high-risk comorbidity (e.g., pneumonia, dysrhythmia, heart failure, pleural effusion, pneumothorax) or severe underlying COPD (e.g., steroid dependent) [ ]II. Inpatient admission required rather than observation care (see Chronic Obstructive Pulmonary Disease: Observation Care) because of ANY ONE of the following: [ ]a) New or pre-existing signs or symptoms of COPD (eg, dyspnea or Tachypnea at rest or with minimal activity) that persist despite outpatient and observation care treatment [ ]b) New-onset hypoxemia (room air SaO2 less than 90%, PO2 less than 60 mm Hg (8.0 kPa)) that persists despite outpatient and observation care treatment [ ]c) Worsening of pre-existing hypoxemia (eg, new or increased requirement for supplemental oxygen to maintain oxygenation at baseline level) that persists despite outpatient and observation care treatment, with oxygen treatment needs performable only in acute inpatient setting [ ]d) Hypercarbia (PCO2 greater than 40 mm Hg (5.3 kPa))-induced respiratory acidosis (pH less than 7.35) that persists despite outpatient and observation care treatment [ ]e) Supplemental oxygen or respiratory treatments for over 24 hours that are performable only in acute inpatient setting [ ]f) Chest tube placement with active evacuation (e.g., suction, drainage) (5) [ ]g) Other condition, treatment or monitoring requiring inpatient admission [ ]III. Planned invasive surgical or diagnostic procedures requiring acute- care hospitalization [ ]IV. Acute respiratory failure (e.g., uncompensated hypercarbia, severe hypoxemia) [ ]V. Severe comorbid condition (e.g., severe steroid myopathy, acute vertebral fracture) that has acutely worsened pulmonary function [ ]. Confusion state, lethargy, obtundation, stupor or coma Extended stay beyond goal length of stay may be needed for (31)(32): [ ]a ) Respiratory Failure. [ ]b) Severe or persisting hypoxemia or hypercarbia [ ]c) Severe or persistent dyspnea [ ]d) Comorbidities (e.g. chronic heart failure, atrial fibrillation with rapid response, pneumonia) [ ]e) Malnutrition The original [employer] content created by [employer] has been revised. The portions of the content which have been revised are identified through the use of italic text or in bold, and [facility] has neither reviewed nor approved the modified material. All other unmodified content is copyright [employer]. Please see references footnoted in the original [employer] edition 2016 ) or severe underlying COPD (e.g., steroid dependent) [ ]II. Inpatient admission required rather than observation care (see Chronic Obstructive Pulmonary Disease: Observation Care) because of ANY ONE of the following: [ ]a) New or pre-existing signs or symptoms of COPD (eg, dyspnea or Tachypnea at rest or with minimal activity) that persist despite outpatient and observation care treatment [ ]b) New-onset hypoxemia (room air SaO2 less than 90%, PO2 less than 60 mm Hg (8.0 kPa)) that persists despite outpatient and observation care treatment [ ]c) Worsening of pre-existing hypoxemia (eg, new or increased requirement for supplemental oxygen to maintain oxygenation at baseline level) that persists despite outpatient and observation care treatment, with oxygen treatment needs performable only in acute inpatient setting [ ]d) Hypercarbia (PCO2 greater than 40 mm Hg (5.3 kPa))-induced respiratory acidosis (pH less than 7.35) that persists despite outpatient and observation care treatment [ ]e) Supplemental oxygen or respiratory treatments for over 24 hours that are performable only in acute inpatient setting [ ]f) Chest tube placement with active evacuation (e.g., suction, drainage) (5) [ ]g) Other condition, treatment or monitoring requiring inpatient admission [ ]III. Planned invasive surgical or diagnostic procedures requiring acute- care hospitalization [ ]IV. Acute respiratory failure (e.g., uncompensated hypercarbia, severe hypoxemia) [ ]V. Severe comorbid condition (e.g., severe steroid myopathy, acute vertebral fracture) that has acutely worsened pulmonary function [ ]. Confusion state, lethargy, obtundation, stupor or coma Extended stay beyond goal length of stay may be needed for (31)(32): [ ]a ) Respiratory Failure. [ ]b) Severe or persisting hypoxemia or hypercarbia [ ]c) Severe or persistent dyspnea [ ]d) Comorbidities (e.g. chronic heart failure, atrial fibrillation with rapid response, pneumonia) [ ]e) Malnutrition The original [facility] [place] content created by [facility] has been revised. The portions of the content which have been revised are identified through the use of italic text or in bold, and [facility] has neither reviewed nor approved the modified material. All other unmodified content is copyright [facility] [employer]. Please see references footnoted in the original [facility] [place] edition 2016 JENNIFER LOWE Jan 21, 2017 04:58
[2017-01-21 06:54] VITALS: BP 149/88
--- NOTE | 2017-01-21 07:09 | RAD ---
Portable chest, 01/21/2017: History: Shortness of breath Comparison is made to a study from 12/24/2016. The heart size and pulmonary vascularity are within normal limits. There is tortuosity of the thoracic aorta. There are scattered parenchymal scars. Blunting of the left lateral costophrenic angle has been present on multiple previous studies and is probably due to scarring. No acute infiltrate is seen. IMPRESSION: 1. Unchanged mild prominence of the pulmonary markings probably due to scarring. 2. No new cardiopulmonary abnormality is detected.
[2017-01-21] MEDS ORDERED: GUAIFENESIN DM 200MG/20MG 10 ML SYRUP. PO PRN (07:15)
--- NOTE | 2017-01-21 07:28 | EKG ---
[facility] [address] [place] [address] Test Date: 2017-01-21 Test Time: 04:22:25 Pat Name: JADYN MORRISON Department: Room: 576 1 Gender: M Fly Maker: : [id number] Requested By: JERROD MARK Order Number: [id number] Reading MD: Cesar Chapman Measurements Intervals Folcroft Rate: 109 P: TN: QRS: 4 QRSD: 86 T: 64 QT: 310 QTc: 419 Interpretive Statements RAPID ATRIAL FIBRILLATION NONSPECIFIC ST-T WAVE CHANGES. Electronically Signed On 01-27-2017 10:51:02 SUPERVISOR SCREEN MAKING by Cesar Chapman
[2017-01-21] MEDS: IPRATRPIUM/ALBUTEROL 0.5/2.5MG 3 ML NEBU. NEB SCH ×4 (08:08→21:14)
[2017-01-21] MEDS ORDERED: NON FORMULARY ITEM (Pantoprazole Sodium (Protonix) 40 MG) PO SCH (09:00)
[2017-01-21] MEDS: FLUTICASONE 50MCG/NASAL SPRAY 16GM BOTTLE. NS SCH ×2 (09:30→23:03)
--- NOTE | 2017-01-21 09:58 | PDOC ---
PULMONARY PROGRESS NOTES Vitals Vital Signs Date Time Temp Pulse Resp B/P Pulse Ox O2 Delivery O2 Flow Rate FiO2 01/21/17 09:19 99 BiPAP/CPAP 01/21/17 06:54 98.4 90 24 149/88 98.4 01/21/17 05:30 15 General: Alert, No acute distress Lungs: Wheezing Cardiovascular: S1, S2 Abdomen: Soft, Non-tender Extremities: No Edema, Other Labs Laboratory Tests Test 01/21/17 04:08 White Blood Count 12.7x10^3/uL (4.0-11.0) Red Blood Count 4.80x10^6/uL (4.30-5.70) Hemoglobin 12.7g/dL (13.0-17.5) Hematocrit 40.2% (39.0-53.0) Mean Corpuscular Volume 84fL (79-100) Mean Corpuscular Hemoglobin 26pg (25-35) Mean Corpuscular Hemoglobin Concent 32g/dL (31-37) Red Cell Distribution Width 15.5% (11.5-14.5) Platelet Count 177x10^3/uL (140-400) Neutrophils (%) (Auto) 65% (31-73) Lymphocytes (%) (Auto) 22% (24-48) Monocytes (%) (Auto) 12% (0-9) Eosinophils (%) (Auto) 1% (0-3) Basophils (%) (Auto) 1% (0-3) Neutrophils # (Auto) 8.2x10^3uL (1.8-7.7) Lymphocytes # (Auto) 2.8x10^3/uL (1.0-4.8) Monocytes # (Auto) 1.5x10^3/uL (0.0-1.1) Eosinophils # (Auto) 0.1x10^3/uL (0.0-0.7) Basophils # (Auto) 0.1x10^3/uL (0.0-0.2) Sodium Level 132mmol/L (136-145) Potassium Level 4.8mmol/L (3.5-5.1) Chloride Level 92mmol/L (98-107) Carbon Dioxide Level 34mmol/L (21-32) Anion Gap 6 (6-14) Blood Urea Nitrogen 20mg/dL (8-26) Creatinine 0.8mg/dL (0.7-1.3) Estimated GFR (Cockcroft-Gault) 97.3 Glucose Level 115mg/dL (70-99) Lactic Acid Level 1.0mmol/L (0.4-2.0) Calcium Level 9.2mg/dL (8.5-10.1) Troponin I Quantitative < 0.017ng/mL (0.000-0.055) Laboratory Tests Test 01/21/17 04:08 White Blood Count 12.7x10^3/uL (4.0-11.0) Red Blood Count 4.80x10^6/uL (4.30-5.70) Hemoglobin 12.7g/dL (13.0-17.5) Hematocrit 40.2% (39.0-53.0) Mean Corpuscular Volume 84fL (79-100) Mean Corpuscular Hemoglobin 26pg (25-35) Mean Corpuscular Hemoglobin Concent 32g/dL (31-37) Red Cell Distribution Width 15.5% (11.5-14.5) Platelet Count 177x10^3/uL (140-400) Neutrophils (%) (Auto) 65% (31-73) Lymphocytes (%) (Auto) 22% (24-48) Monocytes (%) (Auto) 12% (0-9) Eosinophils (%) (Auto) 1% (0-3) Basophils (%) (Auto) 1% (0-3) Neutrophils # (Auto) 8.2x10^3uL (1.8-7.7) Lymphocytes # (Auto) 2.8x10^3/uL (1.0-4.8) Monocytes # (Auto) 1.5x10^3/uL (0.0-1.1) Eosinophils # (Auto) 0.1x10^3/uL (0.0-0.7) Basophils # (Auto) 0.1x10^3/uL (0.0-0.2) Sodium Level 132mmol/L (136-145) Potassium Level 4.8mmol/L (3.5-5.1) Chloride Level 92mmol/L (98-107) Carbon Dioxide Level 34mmol/L (21-32) Anion Gap 6 (6-14) Blood Urea Nitrogen 20mg/dL (8-26) Creatinine 0.8mg/dL (0.7-1.3) Estimated GFR (Cockcroft-Gault) 97.3 Glucose Level 115mg/dL (70-99) Lactic Acid Level 1.0mmol/L (0.4-2.0) Calcium Level 9.2mg/dL (8.5-10.1) Troponin I Quantitative < 0.017ng/mL (0.000-0.055) Medications Active Scripts Medications Dose Route/Sig Days Date Category Prednisone 20 Mg Tablet 40 Mg PO DAILY 12/27/16 Rx Levaquin (Levofloxacin) 250 Mg Tablet 250 Mg PO DAILY06 12/27/16 Rx Mucinex (Guaifenesin) 600 Mg Tablet.er 600 Mg PO BID 12/27/16 Rx Zyrtec (Cetirizine Hcl) 10 Mg Tablet 1 Tab PO DAILY 12/22/16 Reported Xanax (Alprazolam) 0.5 Mg Tablet 0.5 Mg PO PRN Q6HRS PRN 12/22/16 Reported Robitussin Cough-Chest Dm Liq (Guaifenesin/Dextromethorphan) 118 Ml Liquid 118 Ml PO 12/22/16 Reported Transderm-Scop (Scopolamine) 1 Each Patch.td72 1 Patch TP Q3DAYS 12/22/16 Reported Protonix (Pantoprazole Sodium) 40 Mg Granpkt.dr 40 Mg PO DAILY 12/22/16 Reported Potassium Chloride 20 Meq Tablet.er 20 Meq PO DAILY 12/22/16 Reported Guaifenesin Dm Syrup (Guaifenesin/Dextromethorphan) 5 Ml Syrup 10 Ml PO PRN Q6HRS PRN 06/01/16 Reported Flonase Allergy Relief (Fluticasone Propionate) 9.9 Ml [place].susp 2 Sprays NS DAILY 06/01/16 Reported Cardizem Cd (Diltiazem Hcl) 240 Mg Cap.er.24h 1 Cap PO DAILY 06/01/16 Reported Albuterol Sulfate Neb Soln (Albuterol Sulfate) 2.5 Mg/3 Ml Vial.neb 1 Vial NEB PRN Q2HRS PRN 06/01/16 Reported Aspirin 325 Mg Tablet 1 Tab PO DAILY 06/01/16 Reported Cepacol Sore Throat Lozenge (Benzocaine/Menthol) 1 Each Lozenge 1 Analia PO PRN Q2HRS PRN 04/23/16 Rx Benzonatate 100 Mg Capsule 100 Mg PO TID PRN 04/23/16 Rx Promethazine-Codeine Syrup (Promethazine Hcl/Codeine) 118 Ml Syrup 5 Ml PO PRN Q4HRS PRN 04/23/16 Rx Duoneb 0.5-3(2.5) Mg/3 Ml (Albuterol/Ipratropium) 3 Ml Ampul.neb 3 Ml IH Q4HRS 10/25/15 Reported Symbicort 160-4.5 Mcg Inhaler (Budesonide/Formoterol Fumarate) 10.2 Gm Hfa.aer.ad 2 Puff IH BID 08/11/15 Reported Furosemide 40 Mg Tablet 80 Mg PO DAILY 08/11/15 Reported Mucinex (Guaifenesin) 600 Mg Tablet.er 1 Tab PO BID 11/23/14 Rx Nexium Capsule (Esomeprazole Magnesium) 40 Mg Capsule.dr 40 Mg PO DAILY 01/18/14 Reported Lovastatin 20 Mg Tablet 20 Mg PO DAILY 01/18/14 Reported Tamsulosin Hcl 0.4 Mg Cap.er.24h 0.4 Mg PO DAILY 01/18/14 Reported Losartan Potassium 50 Mg Tablet 100 Mg PO DAILY 01/18/14 Reported Impression . full consult dictated see orders will check an ABG prior BIPAP tonight hopefully insurance will cover triology at home GABY RAMSEY MD Jan 21, 2017 09:58
[2017-01-21] MEDS: ASPIRIN 325 MG TABLET PO SCH (10:02)
[2017-01-21] MEDS: LOSARTAN POTASSIUM 50 MG TABLET. PO SCH (10:02)
[2017-01-21] MEDS: PREDNISONE 20 MG TABLET PO SCH (10:02)
[2017-01-21] MEDS: TAMSULOSIN 0.4 MG CAP.ER.24H. PO SCH (10:03)
[2017-01-21] MEDS: DILTIAZEM HCL 240 MG CAP.ER.24H PO SCH (10:03)
[2017-01-21] MEDS: GUAIFENESIN ER 600 MG TABLET.ER PO SCH ×2 (10:03→20:08)
[2017-01-21] MEDS: FUROSEMIDE 40 MG TABLET PO SCH (10:04)
[2017-01-21] MEDS: SCOPOLAMINE 1.5MG PATCH. TD SCH (10:04)
[2017-01-21] MEDS: CETIRIZINE HCL 10 MG TABLET PO SCH (10:05)
[2017-01-21] MEDS: POTASSIUM CHLORIDE 20 MEQ TABLET.ER. PO SCH (10:05)
[2017-01-21] MEDS: PANTOPRAZOLE 40 MG TABLET. PO SCH (10:05)
[2017-01-21 10:59] VITALS: BP 131/87
[2017-01-21] MEDS: BUDESONIDE 0.5 MG/2 ML NEBU NEB SCH ×2 (12:08→21:14)
--- NOTE | 2017-01-21 12:33 | PDOC1 ---
History and Physical Date of Admission Date of Admission DATE: 01/21/17 TIME: 12:29 Identification/Chief Complaint Chief Complaint soa Source Source: Chart review, Patient History of Present Illness History of Present Illness Pt know to me and staff here. Masood huston for COPD exacerbation LAst here first week feb for the ff: 1. Acute hypoxic respiratory failure needing NIPPV and bagging at the scene 1.Acute bronchitis 2. AECOPD, severe 3. PRev smoker (quit 2 yrs ago) 4. Obesity 5. Salazar Dermatitis face, better 6. Superficial dermatitis, intertriginous areas 7. Obesity 8. MIld to mod PCM 9./ GERD 10. LEg edema 12. Scrotal swelling, resolved 13. Post nasal drip Comes in again with the same, Sinus tachy, hypoxic, inc work of breathing needing BIPAP at ER, CXR shows atelectaisis and scarring but no new infiltrate, WBC 12. Pt still on bipap, at bedside,. Was dcd on [place] last dc I did introduce hospice last admit, pt not ready for that, Past Medical History Cardiovascular: CAD, HTN, Syncope, Hyperlipidemia, Other Pulmonary: Asthma, COPD, Pneumonia, Other CENTRAL NERVOUS SYSTEM: Other GI: GERD Heme/Onc: No pertinent hx, Cancer Hepatobiliary: No pertinent hx Psych: No pertinent hx Musculoskeletal: low back pain, Osteoarthritis Rheumatologic: No pertinent hx Infectious disease: No pertinent hx Renal/: Benign prostatic enlarg. Endocrine: No pertinent hx Past Surgical History Past Surgical History: Cholecystectomy, Other Family History Family History: Chronic Bronchitis Social History Smoke: Quit ALCOHOL: none Drugs: None Current Problem List Problem List Problems Medical Problems: (1) Acute respiratory distress Status: Acute (2) COPD with acute exacerbation Status: Acute (3) Pleural effusion Status: Acute Problems: Current Medications Current Medications Current Medications Methylprednisolone Sodium Succinate (Solu-Medrol 125mg Vial) 125 mg 1X ONCE IV Last administered on 01/21/17t 04:36; Start 01/21/17 at 04:15; Stop 01/21/17 at 04:49; Status DC Ondansetron HCl (Zofran) 4 mg PRN Q8HRS PRN IV NAUSEA/VOMITING; Start 01/21/17 at 04:30; Stop 01/21/17 at 09:02; Status DC Acetaminophen (Tylenol) 650 mg PRN Q4HRS PRN PO FEVER; Start 01/21/17 at 04:30 ; Stop 01/22/17 at 04:29 Albuterol/ Ipratropium (Duoneb) 3 ml RTQID NEB Last administered on 01/21/17 12:08; Start 01/21/17 at 08:00; Stop 01/22/17 at 07:59 Albuterol Sulfate (Ventolin Neb Soln) 2.5 mg PRN Q2HRS PRN NEB SHORTNESS OF BREATH; Start 01/21/17 at 07:15 Guaifenesin (Robitussin Dm) 10 ml PRN Q6HRS PRN PO COUGH; Start 01/21/17 at 07: 15 Ondansetron HCl (Zofran) 4 mg PRN Q6HRS PRN IV NAUSEA/VOMITING; Start 01/21/17 at 08:59 Alprazolam (Xanax) 0.5 mg PRN Q6HRS PRN PO ANXIETY / AGITATION; Start 01/21/17 at 09:00 Aspirin (Yolette Aspirin) 325 mg DAILY PO Last administered on 01/21/17 10:02; Start 01/21/17 at 09:00 Throat Lozenges (Cepacol Sore Throat Lozenge) 1 analia PRN Q2HRS PRN PO SORE THROAT; Start 01/21/17 at 09:00 Benzonatate (Tessalon Perle) 100 mg PRN TID PRN PO COUGH; Start 01/21/17 at 09: 00 Cetirizine HCl (Zyrtec) 10 mg DAILY PO Last administered on 01/21/17 10:05; Start 01/21/17 at 09:30 Diltiazem HCl (Cardizem 24hr Cd) 240 mg DAILY PO Last administered on 10:03; Start 01/21/17 at 09:00 Furosemide (Lasix) 80 mg DAILY PO Last administered on 01/21/17 10:04; Start 01/21/17 at 09:00 Guaifenesin (Mucinex) 600 mg BID PO Last administered on 01/21/17 10:03; Start 01/21/17 at 09:00 Guaifenesin (Robitussin Dm) 10 ml PRN Q6HRS PRN PO COUGH; Start 01/21/17 at 09: 00 Losartan Potassium (Cozaar) 100 mg DAILY PO Last administered on 01/21/17 10: 02; Start 01/21/17 at 09:00 Prednisone (Prednisone) 40 mg DAILY PO Last administered on 01/21/17 10:02; Start 01/21/17 at 09:00 Promethazine HCl/ Codeine (Phenergan With Codeine) 5 ml PRN Q4HRS PRN PO COUGH ; Start 01/21/17 at 09:00 Scopolamine (Transderm-Scop) 1 patch Q3DAYS TD Last administered on 01/21/17 10:04; Start 01/21/17 at 09:00 Tamsulosin HCl (Flomax) 0.4 mg DAILY PO Last administered on 01/21/17 10:03; Start 01/21/17 at 09:00 Budesonide (Pulmicort) 0.5 mg RTBID NEB Last administered on 01/21/17 12:08; Start 01/21/17 at 10:00 Pantoprazole Sodium (Protonix) 40 mg DAILYAC PO Last administered on 01/21/17 10:05; Start 01/21/17 at 09:30 Fluticasone Propionate (Flonase) 2 spray DAILY NS ; Start 01/21/17 at 09:30 Atorvastatin Calcium (Lipitor) 5 mg QHS PO ; Start 01/21/17 at 21:00 Non-Formulary Medication 40 mg DAILY PO ; Start 01/21/17 at 09:00; Status UNV Potassium Chloride (Klor-Con) 20 meq DAILYWBKFT PO Last administered on 10:05; Start 01/21/17 at 10:00 Active Scripts Active Prednisone 20 Mg Tablet 40 Mg PO DAILY Levaquin (Levofloxacin) 250 Mg Tablet 250 Mg PO DAILY06 Mucinex (Guaifenesin) 600 Mg Tablet.er 600 Mg PO BID Cepacol Sore Throat Lozenge (Benzocaine/Menthol) 1 Each Lozenge 1 Analia PO PRN Q2HRS PRN Benzonatate 100 Mg Capsule 100 Mg PO TID PRN Promethazine-Codeine Syrup (Promethazine Hcl/Codeine) 118 Ml Syrup 5 Ml PO PRN Q4HRS PRN Mucinex (Guaifenesin) 600 Mg Tablet.er 1 Tab PO BID Reported Zyrtec (Cetirizine Hcl) 10 Mg Tablet 1 Tab PO DAILY Xanax (Alprazolam) 0.5 Mg Tablet 0.5 Mg PO PRN Q6HRS PRN Robitussin Cough-Chest Dm Liq (Guaifenesin/Dextromethorphan) 118 Ml Liquid 118 Ml PO Transderm-Scop (Scopolamine) 1 Each Patch.td72 1 Patch TP Q3DAYS Protonix (Pantoprazole Sodium) 40 Mg Granpkt.dr 40 Mg PO DAILY Potassium Chloride 20 Meq Tablet.er 20 Meq PO DAILY Guaifenesin Dm Syrup (Guaifenesin/Dextromethorphan) 5 Ml Syrup 10 Ml PO PRN Q6HRS PRN Flonase Allergy Relief (Fluticasone Propionate) 9.9 Ml [place].susp 2 Sprays NS DAILY Cardizem Cd (Diltiazem Hcl) 240 Mg Cap.er.24h 1 Cap PO DAILY Albuterol Sulfate Neb Soln (Albuterol Sulfate) 2.5 Mg/3 Ml Vial.neb 1 Vial NEB PRN Q2HRS PRN Aspirin 325 Mg Tablet 1 Tab PO DAILY Duoneb 0.5-3(2.5) Mg/3 Ml (Albuterol/Ipratropium) 3 Ml Ampul.neb 3 Ml IH Q4HRS Symbicort 160-4.5 Mcg Inhaler (Budesonide/Formoterol Fumarate) 10.2 Gm Hfa.aer.ad 2 Puff IH BID Furosemide 40 Mg Tablet 80 Mg PO DAILY Nexium Capsule (Esomeprazole Magnesium) 40 Mg Capsule. 40 Mg PO DAILY Lovastatin 20 Mg Tablet 20 Mg PO DAILY Tamsulosin Hcl 0.4 Mg Cap.er.24h 0.4 Mg PO DAILY Losartan Potassium 50 Mg Tablet 100 Mg PO DAILY Allergies Allergies: Coded Allergies: oxycodone (Verified Allergy, Intermediate, Shortness of Air, 05/30/16) problems with increased CO2 levels with his COPD I S O L A T I O N *CONTACT* (Verified Allergy, Unknown, 12/24/16) mrsa ROS General: YES: Fatigue PSYCHOLOGICAL ROS: No: Anxiety, Behavioral Disorder, Concentration difficultie , Decreased libido, Depression, Disorientation, Hallucinations, Hostility, Irritablity, Memory difficulties, Mood Swings, Obsessive thoughts, Other, Physical abuse, Sexual abuse, Sleep disturbances, Suicidal ideation Eyes: No Blurry vision, No Decreased vision, No Double vision, No Dry eyes, No Excessive tearing, No Eye Pain, No Itchy Eyes, No Loss of vision, No Other, No Photophobia, No Scotomata, No Uses contacts, No Uses glasses HEENT: No: Epistaxis, Heacaches, Hearing change, Nasal congestion, Nasal discharge, Oral lesions, Other, Sinus pain, Sneezing, Snoring, Sore Throat, Tinnitus, Vertigo, Visual Changes, Vocal changes ALLERGY AND IMMUNOLOGY: No: Hives, Insect Bite Sensitivity, Itchy/Watery Eyes, Nasal Congestion, Other, Post Nasal Drip, Seasonal Allergies Hematological and Lymphatic: No: Bleeding Problems, Blood Clots, Blood Transfusions, Brusing, Night Sweats, Other, Pallor, Swollen Lymph Nodes ENDOCRINE: No: Breast Changes, Galactorrhea, Hair Pattern Changes, Hot Flashes , Malaise/lethargy, Mood Swings, Other, Palpitations, Polydipsia/polyuria, Skin Changes, Temperature Intolerance, Unexpected Weight Changes Breast: No New/Changing Breast Lumps, No Nipple changes, No Nipple discharge, No Other Respiratory: YES: Cough, SOB with excertion, Shortness of breath Cardiovascular: yes Chest Pain, yes Other (cp when he coughs) Gastrointestinal: No Abdominal Pain, No Constipation, No Diarrhea, No Hematochezia, No Melena, No Nausea, No Other, No Vomiting Genitourinary: No , No , No , No , No , No , No , No Discharge, No Dysuria, No Flank Pain, No Frequency, No Hematuria, No Incontinence, No Other, No Pain, No Retention, No Urgency Musculoskeletal: No Gait Disturbance, No Joint Pain, No Joint Stiffness, No Joint Swelling, No Muscle Pain, No Muscular Weakness, No Other, No Pain In:, No Swelling In: Neurological: No Behavorial Changes, No Bowel/Bladder ControlChng, No Confusion , No Dizziness, No Gait Disturbance, No Headaches, No Impaired Coord/balance, No Memory Loss, No Numbness/Tingling, No Other, No Seizures, No Speech Problems , No Tremors, No Visual Changes, No Weakness Physical Exam General: Cooperative, mild distress, Other (on BIPAP) Lungs: Normal air movement, Other (dec BS) Heart: S1S2, RRR, no thrills, no rubs Cardiovascular: S1, S2 Breasts: Normal Abdomen: Normal bowel sounds, Soft, No tenderness, No hepatosplenomegaly, No masses Male Genitals Exam: normal genitalia, normal prostate Rectal Exam: not examined PELVIC: Nml ext genitalia Extremities: No clubbing, No cyanosis, No edema, Normal pulses, No tenderness/ swelling Skin: No rashes, No breakdown, No significant lesion Neuro: Normal gait, Normal speech, Strength at 5/5 X4 ext, Normal tone, Sensation intact, Cranial nerves 3-12 NL, Reflexes 2+ Psych/Mental Status: Mental status NL, Mood NL Vitals Vitals Vital Signs Date Time Temp Pulse Resp B/P Pulse Ox O2 Delivery O2 Flow Rate FiO2 01/21/17 12:12 98 BiPAP/CPAP 01/21/17 10:59 97.4 86 22 131/87 98.0 97.4 Labs Labs Laboratory Tests Test 01/21/17 04:08 White Blood Count 12.7x10^3/uL (4.0-11.0) Red Blood Count 4.80x10^6/uL (4.30-5.70) Hemoglobin 12.7g/dL (13.0-17.5) Hematocrit 40.2% (39.0-53.0) Mean Corpuscular Volume 84fL (79-100) Mean Corpuscular Hemoglobin 26pg (25-35) Mean Corpuscular Hemoglobin Concent 32g/dL (31-37) Red Cell Distribution Width 15.5% (11.5-14.5) Platelet Count 177x10^3/uL (140-400) Neutrophils (%) (Auto) 65% (31-73) Lymphocytes (%) (Auto) 22% (24-48) Monocytes (%) (Auto) 12% (0-9) Eosinophils (%) (Auto) 1% (0-3) Basophils (%) (Auto) 1% (0-3) Neutrophils # (Auto) 8.2x10^3uL (1.8-7.7) Lymphocytes # (Auto) 2.8x10^3/uL (1.0-4.8) Monocytes # (Auto) 1.5x10^3/uL (0.0-1.1) Eosinophils # (Auto) 0.1x10^3/uL (0.0-0.7) Basophils # (Auto) 0.1x10^3/uL (0.0-0.2) Sodium Level 132mmol/L (136-145) Potassium Level 4.8mmol/L (3.5-5.1) Chloride Level 92mmol/L (98-107) Carbon Dioxide Level 34mmol/L (21-32) Anion Gap 6 (6-14) Blood Urea Nitrogen 20mg/dL (8-26) Creatinine 0.8mg/dL (0.7-1.3) Estimated GFR (Cockcroft-Gault) 97.3 Glucose Level 115mg/dL (70-99) Lactic Acid Level 1.0mmol/L (0.4-2.0) Calcium Level 9.2mg/dL (8.5-10.1) Troponin I Quantitative < 0.017ng/mL (0.000-0.055) Laboratory Tests Test 01/21/17 04:08 White Blood Count 12.7x10^3/uL (4.0-11.0) Red Blood Count 4.80x10^6/uL (4.30-5.70) Hemoglobin 12.7g/dL (13.0-17.5) Hematocrit 40.2% (39.0-53.0) Mean Corpuscular Volume 84fL (79-100) Mean Corpuscular Hemoglobin 26pg (25-35) Mean Corpuscular Hemoglobin Concent 32g/dL (31-37) Red Cell Distribution Width 15.5% (11.5-14.5) Platelet Count 177x10^3/uL (140-400) Neutrophils (%) (Auto) 65% (31-73) Lymphocytes (%) (Auto) 22% (24-48) Monocytes (%) (Auto) 12% (0-9) Eosinophils (%) (Auto) 1% (0-3) Basophils (%) (Auto) 1% (0-3) Neutrophils # (Auto) 8.2x10^3uL (1.8-7.7) Lymphocytes # (Auto) 2.8x10^3/uL (1.0-4.8) Monocytes # (Auto) 1.5x10^3/uL (0.0-1.1) Eosinophils # (Auto) 0.1x10^3/uL (0.0-0.7) Basophils # (Auto) 0.1x10^3/uL (0.0-0.2) Sodium Level 132mmol/L (136-145) Potassium Level 4.8mmol/L (3.5-5.1) Chloride Level 92mmol/L (98-107) Carbon Dioxide Level 34mmol/L (21-32) Anion Gap 6 (6-14) Blood Urea Nitrogen 20mg/dL (8-26) Creatinine 0.8mg/dL (0.7-1.3) Estimated GFR (Cockcroft-Gault) 97.3 Glucose Level 115mg/dL (70-99) Lactic Acid Level 1.0mmol/L (0.4-2.0) Calcium Level 9.2mg/dL (8.5-10.1) Troponin I Quantitative < 0.017ng/mL (0.000-0.055) VTE Prophylaxis Ordered VTE Prophylaxis Devices: Yes VTE Pharmacological Prophylaxi: Yes Assessment/Plan Assessment/Plan 1. Acute hypoxic respiratory failure needing NIPPV 1.Acute bronchitis 2. AECOPD, severe 3. PRev smoker (quit 2 yrs ago) 4. Obesity 5. Salazar Dermatitis face, better 6. Superficial dermatitis, intertriginous areas 7. Obesity 8. MIld to mod PCM 9./ GERD 10. LEg edema 12. Scrotal swelling, resolved 13. Post nasal drip Plan: BIPAP Pulmo consult\NO need for antibiotics Will defer steroid dose to [facility] PT./OT COugh med DAVID KEBEDE MD Jan 21, 2017 12:33
[2017-01-21 14:45] VITALS: BP 119/62
[2017-01-21] MEDS: GUAIFENESIN DM 200MG/20MG 10 ML SYRUP. PO PRN ×2 (17:10→23:02)
[2017-01-21 19:00] VITALS: BP 124/67
[2017-01-21] MEDS: ATORVASTATIN CALCIUM 10 MG TABLET. PO SCH (20:08)
[2017-01-21] MEDS: BENZONATATE 100 MG CAPSULE. PO PRN (20:10)
[2017-01-21 22:53] LABS: HCO3 ABG 32 mmol/L (21-28); PCO2 ABG 54 mmHg (35-46); PO2 ABG 62 mmHg (65-108); SAT O2 ABG 92 % (92-99)
[2017-01-21 22:56] LABS: FIO2 ABG 36
[2017-01-21 23:00] VITALS: BP 128/82
[2017-01-21] MEDS: ALPRAZOLAM 0.5 MG TABLET PO PRN (23:03)
[2017-01-22 03:00] VITALS: BP 133/84
[2017-01-22 07:00] VITALS: BP 128/89
[2017-01-22 07:29] LABS: BASO % 0 % (0-3); EOS % 0 % (0-3); HEMATOCRIT 41.1 % (39.0-53.0); HEMOGLOBIN 13.2 g/dL (13.0-17.5); LYMPH # 1.1 x10^3/uL (1.0-4.8); LYMPH % 8 % (24-48); MEAN CORPUSCULAR HEMOGLOBIN 27 pg (25-35); MEAN CORPUSCULAR HGB CONC 32 g/dL (31-37); MEAN CORPUSCULAR VOLUME 83 fL (79-100); MONO % 9 % (0-9); NEUT % 83 % (31-73); PLATELET COUNT 196 x10^3/uL (140-400); RED BLOOD COUNT 4.94 x10^6/uL (4.30-5.70); RED CELL DISTRIBUTION WIDTH 15.4 % (11.5-14.5); WHITE BLOOD COUNT 13.2 x10^3/uL (4.0-11.0)
[2017-01-22 07:35] LABS: CALCIUM 9.3 mg/dL (8.5-10.1); CREATININE 0.9 mg/dL (0.7-1.3); POTASSIUM 4.5 mmol/L (3.5-5.1)
[2017-01-22] MEDS: IPRATRPIUM/ALBUTEROL 0.5/2.5MG 3 ML NEBU. NEB SCH (07:49)
[2017-01-22] MEDS: BUDESONIDE 0.5 MG/2 ML NEBU NEB SCH ×2 (07:49→19:56)
[2017-01-22] MEDS: GUAIFENESIN ER 600 MG TABLET.ER PO SCH ×2 (08:32→20:34)
[2017-01-22] MEDS: FUROSEMIDE 40 MG TABLET PO SCH (08:32)
[2017-01-22] MEDS: PANTOPRAZOLE 40 MG TABLET. PO SCH (08:32)
[2017-01-22] MEDS: POTASSIUM CHLORIDE 20 MEQ TABLET.ER. PO SCH (08:32)
[2017-01-22] MEDS: PREDNISONE 20 MG TABLET PO SCH (08:32)
[2017-01-22] MEDS: CETIRIZINE HCL 10 MG TABLET PO SCH (08:33)
[2017-01-22] MEDS: DILTIAZEM HCL 240 MG CAP.ER.24H PO SCH (08:33)
[2017-01-22] MEDS: LOSARTAN POTASSIUM 50 MG TABLET. PO SCH (08:33)
[2017-01-22] MEDS: BENZONATATE 100 MG CAPSULE. PO PRN ×2 (08:33→20:34)
[2017-01-22] MEDS: ASPIRIN 325 MG TABLET PO SCH (08:33)
[2017-01-22] MEDS: TAMSULOSIN 0.4 MG CAP.ER.24H. PO SCH (08:33)
[2017-01-22] MEDS: FLUTICASONE 50MCG/NASAL SPRAY 16GM BOTTLE. NS SCH (08:34)
[2017-01-22 11:00] VITALS: BP 113/77
--- NOTE | 2017-01-22 13:56 | PDOC ---
PROGRESS NOTES Chief Complaint Chief Complaint 1. Acute on chronic hypoxic respiratory failure needing NIPPV 2. AECOPD, severe 3. Anxiety 4. HTN 5. Cough Plan Continue NIPPV Trilogy vent authorization pending HTN stable - losartan and Cardizem Xanx for anxiety periodic nebulizations supplemental oxygen Prednisone pulmonology following prognosis guarded. Symptomatic treatment for cough. Vitals Vitals Vital Signs Date Time Temp Pulse Resp B/P Pulse Ox O2 Delivery O2 Flow Rate FiO2 01/22/17 11:37 BiPAP/CPAP 01/22/17 11:00 97.5 78 24 113/77 92 97.5 01/22/17 08:00 3.0 Physical Exam General: Alert, Oriented X3, Cooperative, mild distress, Other (on BIPAP) Heart: Normal S1, Normal S2 Lungs: Wheezing, Other (decreased BS) Abdomen: Normal bowel sounds, Soft, No tenderness, No hepatosplenomegaly, No masses Extremities: No clubbing, No cyanosis, No edema, Normal pulses, No tenderness/ swelling Skin: No rashes, No breakdown, No significant lesion Labs LABS Laboratory Tests Test 01/21/17 22:50 01/22/17 07:05 O2 Saturation 92% (92-99) Arterial Blood pH 7.40 (7.35-7.45) Arterial Blood pCO2 at Patient Temp 54mmHg (35-46) Arterial Blood pO2 at Patient Temp 62mmHg (65-108) Arterial Blood HCO3 32mmol/L (21-28) Arterial Blood Base Excess 6mmol/L (-3-3) FiO2 36 White Blood Count 13.2x10^3/uL (4.0-11.0) Red Blood Count 4.94x10^6/uL (4.30-5.70) Hemoglobin 13.2g/dL (13.0-17.5) Hematocrit 41.1% (39.0-53.0) Mean Corpuscular Volume 83fL (79-100) Mean Corpuscular Hemoglobin 27pg (25-35) Mean Corpuscular Hemoglobin Concent 32g/dL (31-37) Red Cell Distribution Width 15.4% (11.5-14.5) Platelet Count 196x10^3/uL (140-400) Neutrophils (%) (Auto) 83% (31-73) Lymphocytes (%) (Auto) 8% (24-48) Monocytes (%) (Auto) 9% (0-9) Eosinophils (%) (Auto) 0% (0-3) Basophils (%) (Auto) 0% (0-3) Neutrophils # (Auto) 10.9x10^3uL (1.8-7.7) Lymphocytes # (Auto) 1.1x10^3/uL (1.0-4.8) Monocytes # (Auto) 1.2x10^3/uL (0.0-1.1) Eosinophils # (Auto) 0.0x10^3/uL (0.0-0.7) Basophils # (Auto) 0.0x10^3/uL (0.0-0.2) Sodium Level 134mmol/L (136-145) Potassium Level 4.5mmol/L (3.5-5.1) Chloride Level 93mmol/L (98-107) Carbon Dioxide Level 36mmol/L (21-32) Anion Gap 5 (6-14) Blood Urea Nitrogen 20mg/dL (8-26) Creatinine 0.9mg/dL (0.7-1.3) Estimated GFR (Cockcroft-Gault) 85.0 Glucose Level 120mg/dL (70-99) Calcium Level 9.3mg/dL (8.5-10.1) Assessment and Plan Assessmemt and Plan Problems Medical Problems: (1) Acute respiratory distress Status: Acute (2) COPD with acute exacerbation Status: Acute (3) Pleural effusion Status: Acute Problems: Comment Review of Relevant I have reviewed the following items cindy (where applicable) has been applied. Labs Laboratory Tests Test 01/21/17 04:08 01/21/17 10:28 01/21/17 22:50 01/22/17 07:05 White Blood Count 12.7x10^3/uL (4.0-11.0) 13.2x10^3/uL (4.0-11.0) Red Blood Count 4.80x10^6/uL (4.30-5.70) 4.94x10^6/uL (4.30-5.70) Hemoglobin 12.7g/dL (13.0-17.5) 13.2g/dL (13.0-17.5) Hematocrit 40.2% (39.0-53.0) 41.1% (39.0-53.0) Mean Corpuscular Volume 84fL (79-100) 83fL (79-100) Mean Corpuscular Hemoglobin 26pg (25-35) 27pg (25-35) Mean Corpuscular Hemoglobin Concent 32g/dL (31-37) 32g/dL (31-37) Red Cell Distribution Width 15.5% (11.5-14.5) 15.4% (11.5-14.5) Platelet Count 177x10^3/uL (140-400) 196x10^3/uL (140-400) Neutrophils (%) (Auto) 65% (31-73) 83% (31-73) Lymphocytes (%) (Auto) 22% (24-48) 8% (24-48) Monocytes (%) (Auto) 12% (0-9) 9% (0-9) Eosinophils (%) (Auto) 1% (0-3) 0% (0-3) Basophils (%) (Auto) 1% (0-3) 0% (0-3) Neutrophils # (Auto) 8.2x10^3uL (1.8-7.7) 10.9x10^3uL (1.8-7.7) Lymphocytes # (Auto) 2.8x10^3/uL (1.0-4.8) 1.1x10^3/uL (1.0-4.8) Monocytes # (Auto) 1.5x10^3/uL (0.0-1.1) 1.2x10^3/uL (0.0-1.1) Eosinophils # (Auto) 0.1x10^3/uL (0.0-0.7) 0.0x10^3/uL (0.0-0.7) Basophils # (Auto) 0.1x10^3/uL (0.0-0.2) 0.0x10^3/uL (0.0-0.2) Sodium Level 132mmol/L (136-145) 134mmol/L (136-145) Potassium Level 4.8mmol/L (3.5-5.1) 4.5mmol/L (3.5-5.1) Chloride Level 92mmol/L (98-107) 93mmol/L (98-107) Carbon Dioxide Level 34mmol/L (21-32) 36mmol/L (21-32) Anion Gap 6 (6-14) 5 (6-14) Blood Urea Nitrogen 20mg/dL (8-26) 20mg/dL (8-26) Creatinine 0.8mg/dL (0.7-1.3) 0.9mg/dL (0.7-1.3) Estimated GFR (Cockcroft-Gault) 97.3 85.0 Glucose Level 115mg/dL (70-99) 120mg/dL (70-99) Lactic Acid Level 1.0mmol/L (0.4-2.0) Calcium Level 9.2mg/dL (8.5-10.1) 9.3mg/dL (8.5-10.1) Troponin I Quantitative < 0.017ng/mL (0.000-0.055) Nasal Screen MRSA (PCR) Positive (Negative) O2 Saturation 92% (92-99) Arterial Blood pH 7.40 (7.35-7.45) Arterial Blood pCO2 at Patient Temp 54mmHg (35-46) Arterial Blood pO2 at Patient Temp 62mmHg (65-108) Arterial Blood HCO3 32mmol/L (21-28) Arterial Blood Base Excess 6mmol/L (-3-3) FiO2 36 Laboratory Tests Test 01/21/17 22:50 01/22/17 07:05 O2 Saturation 92% (92-99) Arterial Blood pH 7.40 (7.35-7.45) Arterial Blood pCO2 at Patient Temp 54mmHg (35-46) Arterial Blood pO2 at Patient Temp 62mmHg (65-108) Arterial Blood HCO3 32mmol/L (21-28) Arterial Blood Base Excess 6mmol/L (-3-3) FiO2 36 White Blood Count 13.2x10^3/uL (4.0-11.0) Red Blood Count 4.94x10^6/uL (4.30-5.70) Hemoglobin 13.2g/dL (13.0-17.5) Hematocrit 41.1% (39.0-53.0) Mean Corpuscular Volume 83fL (79-100) Mean Corpuscular Hemoglobin 27pg (25-35) Mean Corpuscular Hemoglobin Concent 32g/dL (31-37) Red Cell Distribution Width 15.4% (11.5-14.5) Platelet Count 196x10^3/uL (140-400) Neutrophils (%) (Auto) 83% (31-73) Lymphocytes (%) (Auto) 8% (24-48) Monocytes (%) (Auto) 9% (0-9) Eosinophils (%) (Auto) 0% (0-3) Basophils (%) (Auto) 0% (0-3) Neutrophils # (Auto) 10.9x10^3uL (1.8-7.7) Lymphocytes # (Auto) 1.1x10^3/uL (1.0-4.8) Monocytes # (Auto) 1.2x10^3/uL (0.0-1.1) Eosinophils # (Auto) 0.0x10^3/uL (0.0-0.7) Basophils # (Auto) 0.0x10^3/uL (0.0-0.2) Sodium Level 134mmol/L (136-145) Potassium Level 4.5mmol/L (3.5-5.1) Chloride Level 93mmol/L (98-107) Carbon Dioxide Level 36mmol/L (21-32) Anion Gap 5 (6-14) Blood Urea Nitrogen 20mg/dL (8-26) Creatinine 0.9mg/dL (0.7-1.3) Estimated GFR (Cockcroft-Gault) 85.0 Glucose Level 120mg/dL (70-99) Calcium Level 9.3mg/dL (8.5-10.1) Microbiology 01/21/17 Blood Culture - Preliminary, Resulted NO GROWTH AFTER 1 DAY Medications Current Medications Methylprednisolone Sodium Succinate (Solu-Medrol 125mg Vial) 125 mg 1X ONCE IV Last administered on 01/21/17t 04:36; Start 01/21/17 at 04:15; Stop 01/21/17 at 04:49; Status DC Ondansetron HCl (Zofran) 4 mg PRN Q8HRS PRN IV NAUSEA/VOMITING; Start 01/21/17 at 04:30; Stop 01/21/17 at 09:02; Status DC Acetaminophen (Tylenol) 650 mg PRN Q4HRS PRN PO FEVER; Start 01/21/17 at 04:30 ; Stop 01/22/17 at 04:29; Status DC Albuterol/ Ipratropium (Duoneb) 3 ml RTQID NEB Last administered on 01/22/17 07 :49; Start 01/21/17 at 08:00; Stop 01/22/17 at 07:59; Status DC Albuterol Sulfate (Ventolin Neb Soln) 2.5 mg PRN Q2HRS PRN NEB SHORTNESS OF BREATH; Start 01/21/17 at 07:15 Guaifenesin (Robitussin Dm) 10 ml PRN Q6HRS PRN PO COUGH; Start 01/21/17 at 07: 15; Status Cancel Ondansetron HCl (Zofran) 4 mg PRN Q6HRS PRN IV NAUSEA/VOMITING; Start 01/21/17 at 08:59 Alprazolam (Xanax) 0.5 mg PRN Q6HRS PRN PO ANXIETY / AGITATION Last administered on 01/21/17 23:03; Start 01/21/17 at 09:00 Aspirin (Yolette Aspirin) 325 mg DAILY PO Last administered on 01/22/17 08:33; Start 01/21/17 at 09:00 Throat Lozenges (Cepacol Sore Throat Lozenge) 1 analia PRN Q2HRS PRN PO SORE THROAT; Start 01/21/17 at 09:00 Benzonatate (Tessalon Perle) 100 mg PRN TID PRN PO COUGH Last administered on 08:33; Start 01/21/17 at 09:00 Cetirizine HCl (Zyrtec) 10 mg DAILY PO Last administered on 01/22/17 08:33; Start 01/21/17 at 09:30 Diltiazem HCl (Cardizem 24hr Cd) 240 mg DAILY PO Last administered on 01/22/17 08:33; Start 01/21/17 at 09:00 Furosemide (Lasix) 80 mg DAILY PO Last administered on 01/22/17 08:32; Start at 09:00 Guaifenesin (Mucinex) 600 mg BID PO Last administered on 01/22/17 08:32; Start 01/21/17 at 09:00 Guaifenesin (Robitussin Dm) 10 ml PRN Q6HRS PRN PO COUGH Last administered on 23:02; Start 01/21/17 at 09:00 Losartan Potassium (Cozaar) 100 mg DAILY PO Last administered on 01/22/17 08:33 ; Start 01/21/17 at 09:00 Prednisone (Prednisone) 40 mg DAILY PO Last administered on 01/22/17 08:32; Start 01/21/17 at 09:00 Promethazine HCl/ Codeine (Phenergan With Codeine) 5 ml PRN Q4HRS PRN PO COUGH ; Start 01/21/17 at 09:00 Scopolamine (Transderm-Scop) 1 patch Q3DAYS TD Last administered on 01/21/17 10:04; Start 01/21/17 at 09:00 Tamsulosin HCl (Flomax) 0.4 mg DAILY PO Last administered on 01/22/17 08:33; Start 01/21/17 at 09:00 Budesonide (Pulmicort) 0.5 mg RTBID NEB Last administered on 01/22/17 07:49; Start 01/21/17 at 10:00 Pantoprazole Sodium (Protonix) 40 mg DAILYAC PO Last administered on 01/22/17 08:32; Start 01/21/17 at 09:30 Fluticasone Propionate (Flonase) 2 spray DAILY NS Last administered on 08:34; Start 01/21/17 at 09:30 Atorvastatin Calcium (Lipitor) 5 mg QHS PO Last administered on 01/21/17 20:08 ; Start 01/21/17 at 21:00 Non-Formulary Medication 40 mg DAILY PO ; Start 01/21/17 at 09:00; Status UNV Potassium Chloride (Klor-Con) 20 meq [id number] PO Last administered on 08:32; Start 01/21/17 at 10:00 Active Scripts Active Prednisone 20 Mg Tablet 40 Mg PO DAILY Levaquin (Levofloxacin) 250 Mg Tablet 250 Mg PO DAILY06 Mucinex (Guaifenesin) 600 Mg Tablet.er 600 Mg PO BID Cepacol Sore Throat Lozenge (Benzocaine/Menthol) 1 Each Lozenge 1 Analia PO PRN Q2HRS PRN Benzonatate 100 Mg Capsule 100 Mg PO TID PRN Promethazine-Codeine Syrup (Promethazine Hcl/Codeine) 118 Ml Syrup 5 Ml PO PRN Q4HRS PRN Mucinex (Guaifenesin) 600 Mg Tablet.er 1 Tab PO BID Reported Zyrtec (Cetirizine Hcl) 10 Mg Tablet 1 Tab PO DAILY Xanax (Alprazolam) 0.5 Mg Tablet 0.5 Mg PO PRN Q6HRS PRN Robitussin Cough-Chest Dm Liq (Guaifenesin/Dextromethorphan) 118 Ml Liquid 118 Ml PO Transderm-Scop (Scopolamine) 1 Each Patch.td72 1 Patch TP Q3DAYS Protonix (Pantoprazole Sodium) 40 Mg Granpkt.dr 40 Mg PO DAILY Potassium Chloride 20 Meq Tablet.er 20 Meq PO DAILY Guaifenesin Dm Syrup (Guaifenesin/Dextromethorphan) 5 Ml Syrup 10 Ml PO PRN Q6HRS PRN Flonase Allergy Relief (Fluticasone Propionate) 9.9 Ml [place].susp 2 Sprays NS DAILY Cardizem Cd (Diltiazem Hcl) 240 Mg Cap.er.24h 1 Cap PO DAILY Albuterol Sulfate Neb Soln (Albuterol Sulfate) 2.5 Mg/3 Ml Vial.neb 1 Vial NEB PRN Q2HRS PRN Aspirin 325 Mg Tablet 1 Tab PO DAILY Duoneb 0.5-3(2.5) Mg/3 Ml (Albuterol/Ipratropium) 3 Ml Ampul.neb 3 Ml IH Q4HRS Symbicort 160-4.5 Mcg Inhaler (Budesonide/Formoterol Fumarate) 10.2 Gm Hfa.aer.ad 2 Puff IH BID Furosemide 40 Mg Tablet 80 Mg PO DAILY Nexium Capsule (Esomeprazole Magnesium) 40 Mg Capsule.dr 40 Mg PO DAILY Lovastatin 20 Mg Tablet 20 Mg PO DAILY Tamsulosin Hcl 0.4 Mg Cap.er.24h 0.4 Mg PO DAILY Losartan Potassium 50 Mg Tablet 100 Mg PO DAILY Vitals/I & O Vital Sign - Last 24 Hours 01/21/17 01/21/17 01/21/17 01/21/17 14:45 16:51 19:00 20:00 Temp 97.9 97.8 97.9 97.8 Pulse 97 74 Resp 20 20 B/P 119/62 124/67 Pulse Ox 90 97 O2 Delivery Nasal Cannula Nasal Cannula Bi-pap O2 Flow Rate 4.0 4.0 01/21/17 01/21/17 01/21/17 01/22/17 21:18 23:00 23:19 01:09 Temp 98.7 98.7 Pulse 84 Resp 20 B/P 128/82 Pulse Ox 92 O2 Delivery Nasal Cannula BiPAP/CPAP BiPAP/CPAP O2 Flow Rate 4.0 01/22/17 01/22/17 01/22/17 01/22/17 03:00 03:54 05:50 07:00 Temp 97.6 98.4 97.6 98.4 Pulse 66 83 Resp 20 16 B/P 133/84 128/89 Pulse Ox 98 96 O2 Delivery BiPAP/CPAP BiPAP/CPAP Room Air 01/22/17 01/22/17 01/22/17 01/22/17 07:52 08:00 08:33 08:33 Pulse 66 66 B/P 133/84 133/84 Pulse Ox 96 O2 Delivery Nasal Cannula Bi-pap O2 Flow Rate 3.0 3.0 01/22/17 01/22/17 11:00 11:37 Temp 97.5 97.5 Pulse 78 Resp 24 B/P 113/77 Pulse Ox 92 O2 Delivery BiPAP/CPAP BiPAP/CPAP Intake and Output 01/21/17 01/21/17 01/22/17 15:00 23:00 07:00 Intake Total 240 ml 120 ml Balance 240 ml 120 ml CESILIA COVINGTON MD Jan 22, 2017 13:56
[2017-01-22 15:00] VITALS: BP 100/56
[2017-01-22] MEDS: ALBUTEROL SULFATE 2.5 MG/3 ML NEBU. NEB PRN ×2 (15:46→19:56)
--- NOTE | 2017-01-22 17:23 | PDOC ---
PULMONARY PROGRESS NOTES Subjective pt feels better Vitals Vital Signs Date Time Temp Pulse Resp B/P Pulse Ox O2 Delivery O2 Flow Rate FiO2 01/22/17 15:47 BiPAP/CPAP 01/22/17 15:00 97.4 68 22 100/56 97 97.4 01/22/17 08:00 3.0 ROS: No Nausea, No Chest Pain, No Abdominal Pain, No Increase Cough General: Alert, No acute distress Lungs: Wheezing Cardiovascular: S1, S2 Abdomen: Soft, Non-tender Neuro Exam: Alert Extremities: No Edema, Other Skin: Warm Labs Laboratory Tests Test 01/21/17 04:08 01/21/17 10:28 01/21/17 22:50 01/22/17 07:05 White Blood Count 12.7x10^3/uL (4.0-11.0) 13.2x10^3/uL (4.0-11.0) Red Blood Count 4.80x10^6/uL (4.30-5.70) 4.94x10^6/uL (4.30-5.70) Hemoglobin 12.7g/dL (13.0-17.5) 13.2g/dL (13.0-17.5) Hematocrit 40.2% (39.0-53.0) 41.1% (39.0-53.0) Mean Corpuscular Volume 84fL (79-100) 83fL (79-100) Mean Corpuscular Hemoglobin 26pg (25-35) 27pg (25-35) Mean Corpuscular Hemoglobin Concent 32g/dL (31-37) 32g/dL (31-37) Red Cell Distribution Width 15.5% (11.5-14.5) 15.4% (11.5-14.5) Platelet Count 177x10^3/uL (140-400) 196x10^3/uL (140-400) Neutrophils (%) (Auto) 65% (31-73) 83% (31-73) Lymphocytes (%) (Auto) 22% (24-48) 8% (24-48) Monocytes (%) (Auto) 12% (0-9) 9% (0-9) Eosinophils (%) (Auto) 1% (0-3) 0% (0-3) Basophils (%) (Auto) 1% (0-3) 0% (0-3) Neutrophils # (Auto) 8.2x10^3uL (1.8-7.7) 10.9x10^3uL (1.8-7.7) Lymphocytes # (Auto) 2.8x10^3/uL (1.0-4.8) 1.1x10^3/uL (1.0-4.8) Monocytes # (Auto) 1.5x10^3/uL (0.0-1.1) 1.2x10^3/uL (0.0-1.1) Eosinophils # (Auto) 0.1x10^3/uL (0.0-0.7) 0.0x10^3/uL (0.0-0.7) Basophils # (Auto) 0.1x10^3/uL (0.0-0.2) 0.0x10^3/uL (0.0-0.2) Sodium Level 132mmol/L (136-145) 134mmol/L (136-145) Potassium Level 4.8mmol/L (3.5-5.1) 4.5mmol/L (3.5-5.1) Chloride Level 92mmol/L (98-107) 93mmol/L (98-107) Carbon Dioxide Level 34mmol/L (21-32) 36mmol/L (21-32) Anion Gap 6 (6-14) 5 (6-14) Blood Urea Nitrogen 20mg/dL (8-26) 20mg/dL (8-26) Creatinine 0.8mg/dL (0.7-1.3) 0.9mg/dL (0.7-1.3) Estimated GFR (Cockcroft-Gault) 97.3 85.0 Glucose Level 115mg/dL (70-99) 120mg/dL (70-99) Lactic Acid Level 1.0mmol/L (0.4-2.0) Calcium Level 9.2mg/dL (8.5-10.1) 9.3mg/dL (8.5-10.1) Troponin I Quantitative < 0.017ng/mL (0.000-0.055) Nasal Screen MRSA (PCR) Positive (Negative) O2 Saturation 92% (92-99) Arterial Blood pH 7.40 (7.35-7.45) Arterial Blood pCO2 at Patient Temp 54mmHg (35-46) Arterial Blood pO2 at Patient Temp 62mmHg (65-108) Arterial Blood HCO3 32mmol/L (21-28) Arterial Blood Base Excess 6mmol/L (-3-3) FiO2 36 Laboratory Tests Test 01/21/17 22:50 01/22/17 07:05 O2 Saturation 92% (92-99) Arterial Blood pH 7.40 (7.35-7.45) Arterial Blood pCO2 at Patient Temp 54mmHg (35-46) Arterial Blood pO2 at Patient Temp 62mmHg (65-108) Arterial Blood HCO3 32mmol/L (21-28) Arterial Blood Base Excess 6mmol/L (-3-3) FiO2 36 White Blood Count 13.2x10^3/uL (4.0-11.0) Red Blood Count 4.94x10^6/uL (4.30-5.70) Hemoglobin 13.2g/dL (13.0-17.5) Hematocrit 41.1% (39.0-53.0) Mean Corpuscular Volume 83fL (79-100) Mean Corpuscular Hemoglobin 27pg (25-35) Mean Corpuscular Hemoglobin Concent 32g/dL (31-37) Red Cell Distribution Width 15.4% (11.5-14.5) Platelet Count 196x10^3/uL (140-400) Neutrophils (%) (Auto) 83% (31-73) Lymphocytes (%) (Auto) 8% (24-48) Monocytes (%) (Auto) 9% (0-9) Eosinophils (%) (Auto) 0% (0-3) Basophils (%) (Auto) 0% (0-3) Neutrophils # (Auto) 10.9x10^3uL (1.8-7.7) Lymphocytes # (Auto) 1.1x10^3/uL (1.0-4.8) Monocytes # (Auto) 1.2x10^3/uL (0.0-1.1) Eosinophils # (Auto) 0.0x10^3/uL (0.0-0.7) Basophils # (Auto) 0.0x10^3/uL (0.0-0.2) Sodium Level 134mmol/L (136-145) Potassium Level 4.5mmol/L (3.5-5.1) Chloride Level 93mmol/L (98-107) Carbon Dioxide Level 36mmol/L (21-32) Anion Gap 5 (6-14) Blood Urea Nitrogen 20mg/dL (8-26) Creatinine 0.9mg/dL (0.7-1.3) Estimated GFR (Cockcroft-Gault) 85.0 Glucose Level 120mg/dL (70-99) Calcium Level 9.3mg/dL (8.5-10.1) Medications Active Scripts Medications Dose Route/Sig Days Date Category Prednisone 20 Mg Tablet 40 Mg PO DAILY 12/27/16 Rx Levaquin (Levofloxacin) 250 Mg Tablet 250 Mg PO DAILY06 12/27/16 Rx Mucinex (Guaifenesin) 600 Mg Tablet.er 600 Mg PO BID 12/27/16 Rx Zyrtec (Cetirizine Hcl) 10 Mg Tablet 1 Tab PO DAILY 12/22/16 Reported Xanax (Alprazolam) 0.5 Mg Tablet 0.5 Mg PO PRN Q6HRS PRN 12/22/16 Reported Robitussin Cough-Chest Dm Liq (Guaifenesin/Dextromethorphan) 118 Ml Liquid 118 Ml PO 12/22/16 Reported Transderm-Scop (Scopolamine) 1 Each Patch.td72 1 Patch TP Q3DAYS 12/22/16 Reported Protonix (Pantoprazole Sodium) 40 Mg Granpkt.dr 40 Mg PO DAILY 12/22/16 Reported Potassium Chloride 20 Meq Tablet.er 20 Meq PO DAILY 12/22/16 Reported Guaifenesin Dm Syrup (Guaifenesin/Dextromethorphan) 5 Ml Syrup 10 Ml PO PRN Q6HRS PRN 06/01/16 Reported Flonase Allergy Relief (Fluticasone Propionate) 9.9 Ml [place].susp 2 Sprays NS DAILY 06/01/16 Reported Cardizem Cd (Diltiazem Hcl) 240 Mg Cap.er.24h 1 Cap PO DAILY 06/01/16 Reported Albuterol Sulfate Neb Soln (Albuterol Sulfate) 2.5 Mg/3 Ml Vial.neb 1 Vial NEB PRN Q2HRS PRN 06/01/16 Reported Aspirin 325 Mg Tablet 1 Tab PO DAILY 06/01/16 Reported Cepacol Sore Throat Lozenge (Benzocaine/Menthol) 1 Each Lozenge 1 Analia PO PRN Q2HRS PRN 04/23/16 Rx Benzonatate 100 Mg Capsule 100 Mg PO TID PRN 04/23/16 Rx Promethazine-Codeine Syrup (Promethazine Hcl/Codeine) 118 Ml Syrup 5 Ml PO PRN Q4HRS PRN 04/23/16 Rx Duoneb 0.5-3(2.5) Mg/3 Ml (Albuterol/Ipratropium) 3 Ml Ampul.neb 3 Ml IH Q4HRS 10/25/15 Reported Symbicort 160-4.5 Mcg Inhaler (Budesonide/Formoterol Fumarate) 10.2 Gm Hfa.aer.ad 2 Puff IH BID 08/11/15 Reported Furosemide 40 Mg Tablet 80 Mg PO DAILY 08/11/15 Reported Mucinex (Guaifenesin) 600 Mg Tablet.er 1 Tab PO BID 11/23/14 Rx Nexium Capsule (Esomeprazole Magnesium) 40 Mg Capsule.dr 40 Mg PO DAILY 01/18/14 Reported Lovastatin 20 Mg Tablet 20 Mg PO DAILY 01/18/14 Reported Tamsulosin Hcl 0.4 Mg Cap.er.24h 0.4 Mg PO DAILY 01/18/14 Reported Losartan Potassium 50 Mg Tablet 100 Mg PO DAILY 01/18/14 Reported Impression . A/C RESP FAILURE AECOPD GERD COUGH OBESITY Plan . FILLED OUT FORM FOR HOME TRILOGY CONTINUE THE SAME FOR NOW GABY RAMSEY MD Jan 22, 2017 17:23
--- NOTE | 2017-01-22 17:27 | CONS ---
DATE OF CONSULTATION: 01/21/2017 ATTENDING PHYSICIAN: Dr. Triana. DICTATING PHYSICIAN: Dr. Ramsey. REASON FOR CONSULTATION: The patient is seen in pulmonary consultation at the request of Dr. Triana for acute on chronic respiratory failure. HISTORY OF PRESENT ILLNESS: The patient is a 66-year-old presented with "unable to breathe," was trying to avoid coming back to the hospital. He normally wears oxygen at home. He states he was unable to get the air in and out of his lungs. He has a cough, mostly nonproductive, no fever, chills or night sweats. PAST MEDICAL HISTORY: 1. Chronic respiratory failure, chronic bronchitis, tobacco dependence in remission, obesity, chronic gastroesophageal reflux, chronic cor pulmonale. 2. Suspect secondary pulmonary hypertension. 3. Hyperlipidemia. PAST SURGICAL HISTORY: Cholecystectomy. FAMILY HISTORY: COPD. SOCIAL HISTORY: He denies any tobacco or alcohol use at this time. REVIEW OF SYSTEMS: As indicated above, otherwise, a 10-point system was reviewed and negative. CURRENT MEDICATIONS: List were reviewed. ALLERGIES: OXYCODONE. PHYSICAL EXAMINATION: VITAL SIGNS: The patient was off of BiPAP, currently on 4 liters O2 sat 90%. HEENT: Eyes: Sclerae were nonicteric. NECK: Jugular venous distention was not elevated. No lymphadenopathy. CHEST: Full expansion. LUNGS: Poor airway flow with no wheezes. CARDIOVASCULAR: Regular rate and rhythm with S1, S2, no S3. ABDOMEN: Soft, nontender, nondistended. Obese. EXTREMITIES: No clubbing, cyanosis, 1+ edema. Chest x-ray reviewed, no acute infiltrates. LABORATORY DATA: Reviewed. IMPRESSION: 1. Acute on chronic respiratory failure secondary to acute exacerbation of chronic obstructive pulmonary disease. The patient was on 4 liters of oxygen supplementation with saturations of 80% upon initial evaluation by EMS. 2. Gastroesophageal reflux. 3. Atrial fibrillation. 4. Hypertension. 5. Acute exacerbation of chronic obstructive pulmonary disease. PLAN: 1. We will continue current steroids and nebulized treatments. No need for antibiotics. 2. P.r.n. BiPAP. 3. We will discuss case with rn social services. We will check with insurance company to see if they would qualify him for BiPAP at home to prevent these readmissions. I do appreciate the privilege in sharing in the patient's care. GABY RAMSEY MD DR: Elizabeth JOB#: [id number] / [id number]
[2017-01-22 19:00] VITALS: BP 117/69
[2017-01-22] MEDS: ALPRAZOLAM 0.5 MG TABLET PO PRN (20:34)
[2017-01-22] MEDS: BENZOCAINE/MENTHOL LOZENGE. PO PRN (20:34)
[2017-01-22] MEDS: PROMETH/CODEINE 6.25/10MG 5 ML SYRUP. PO PRN (20:34)
[2017-01-22] MEDS: ATORVASTATIN CALCIUM 10 MG TABLET. PO SCH (20:34)
[2017-01-22] MEDS ORDERED: POLY17PO5 PO (21:50)
[2017-01-22] MEDS ORDERED: PSYL1PAC7 PO (21:50)
[2017-01-22 23:00] VITALS: BP 105/66
[2017-01-23] MEDS: ALBUTEROL SULFATE 2.5 MG/3 ML NEBU. NEB PRN (02:14)
[2017-01-23 07:00] VITALS: BP 111/75
[2017-01-23] MEDS: BUDESONIDE 0.5 MG/2 ML NEBU NEB SCH ×2 (08:00→21:15)
[2017-01-23] MEDS: ALBUTEROL SULFATE 2.5 MG/3 ML NEBU. NEB SCH ×4 (08:07→21:15)
[2017-01-23] MEDS: GUAIFENESIN DM 200MG/20MG 10 ML SYRUP. PO PRN (09:13)
[2017-01-23] MEDS: ASPIRIN 325 MG TABLET PO SCH (09:14)
[2017-01-23] MEDS: FUROSEMIDE 40 MG TABLET PO SCH (09:14)
[2017-01-23] MEDS: PANTOPRAZOLE 40 MG TABLET. PO SCH (09:14)
[2017-01-23] MEDS: FLUTICASONE 50MCG/NASAL SPRAY 16GM BOTTLE. NS SCH (09:14)
[2017-01-23] MEDS: TAMSULOSIN 0.4 MG CAP.ER.24H. PO SCH (09:15)
[2017-01-23] MEDS: CETIRIZINE HCL 10 MG TABLET PO SCH (09:15)
[2017-01-23] MEDS: DILTIAZEM HCL 240 MG CAP.ER.24H PO SCH (09:15)
[2017-01-23] MEDS: POTASSIUM CHLORIDE 20 MEQ TABLET.ER. PO SCH (09:15)
[2017-01-23] MEDS: GUAIFENESIN ER 600 MG TABLET.ER PO SCH ×2 (09:15→20:25)
[2017-01-23] MEDS: PREDNISONE 20 MG TABLET PO SCH (09:15)
[2017-01-23] MEDS: LOSARTAN POTASSIUM 50 MG TABLET. PO SCH (09:15)
[2017-01-23 10:45] VITALS: BP 110/73
--- NOTE | 2017-01-23 11:56 | PDOC ---
PROGRESS NOTES Chief Complaint Chief Complaint 1. Acute on chronic hypoxic respiratory failure needing NIPPV 2. AECOPD, severe 3. Anxiety 4. HTN 5. Cough Plan Continue NIPPV Trilogy vent - planning at [place] HTN stable - losartan and Cardizem Xanx for anxiety periodic nebulizations supplemental oxygen Prednisone pulmonology following prognosis guarded. Symptomatic treatment for cough. History of Present Illness History of Present Illness sob mild on BIPAP Vitals Vitals Vital Signs Date Time Temp Pulse Resp B/P Pulse Ox O2 Delivery O2 Flow Rate FiO2 01/23/17 11:19 Nasal Cannula 4.0 01/23/17 10:45 97.8 68 18 110/73 93 97.8 Physical Exam General: Alert, Oriented X3, Cooperative, mild distress, Other (on BIPAP) Heart: Normal S1, Normal S2 Lungs: Wheezing Abdomen: Normal bowel sounds, Soft, No tenderness, No hepatosplenomegaly, No masses Extremities: No clubbing, No cyanosis, No edema, Normal pulses, No tenderness/ swelling Skin: No rashes, No breakdown, No significant lesion Assessment and Plan Assessmemt and Plan Problems Medical Problems: (1) Acute respiratory distress Status: Acute (2) COPD with acute exacerbation Status: Acute (3) Pleural effusion Status: Acute Problems: Comment Review of Relevant I have reviewed the following items cindy (where applicable) has been applied. Labs Laboratory Tests Test 01/21/17 22:50 01/22/17 07:05 O2 Saturation 92% (92-99) Arterial Blood pH 7.40 (7.35-7.45) Arterial Blood pCO2 at Patient Temp 54mmHg (35-46) Arterial Blood pO2 at Patient Temp 62mmHg (65-108) Arterial Blood HCO3 32mmol/L (21-28) Arterial Blood Base Excess 6mmol/L (-3-3) FiO2 36 White Blood Count 13.2x10^3/uL (4.0-11.0) Red Blood Count 4.94x10^6/uL (4.30-5.70) Hemoglobin 13.2g/dL (13.0-17.5) Hematocrit 41.1% (39.0-53.0) Mean Corpuscular Volume 83fL (79-100) Mean Corpuscular Hemoglobin 27pg (25-35) Mean Corpuscular Hemoglobin Concent 32g/dL (31-37) Red Cell Distribution Width 15.4% (11.5-14.5) Platelet Count 196x10^3/uL (140-400) Neutrophils (%) (Auto) 83% (31-73) Lymphocytes (%) (Auto) 8% (24-48) Monocytes (%) (Auto) 9% (0-9) Eosinophils (%) (Auto) 0% (0-3) Basophils (%) (Auto) 0% (0-3) Neutrophils # (Auto) 10.9x10^3uL (1.8-7.7) Lymphocytes # (Auto) 1.1x10^3/uL (1.0-4.8) Monocytes # (Auto) 1.2x10^3/uL (0.0-1.1) Eosinophils # (Auto) 0.0x10^3/uL (0.0-0.7) Basophils # (Auto) 0.0x10^3/uL (0.0-0.2) Sodium Level 134mmol/L (136-145) Potassium Level 4.5mmol/L (3.5-5.1) Chloride Level 93mmol/L (98-107) Carbon Dioxide Level 36mmol/L (21-32) Anion Gap 5 (6-14) Blood Urea Nitrogen 20mg/dL (8-26) Creatinine 0.9mg/dL (0.7-1.3) Estimated GFR (Cockcroft-Gault) 85.0 Glucose Level 120mg/dL (70-99) Calcium Level 9.3mg/dL (8.5-10.1) Microbiology 01/21/17 Blood Culture - Preliminary, Resulted NO GROWTH AFTER 2 DAYS Medications Current Medications Methylprednisolone Sodium Succinate (Solu-Medrol 125mg Vial) 125 mg 1X ONCE IV Last administered on 01/21/17t 04:36; Start 01/21/17 at 04:15; Stop 01/21/17 at 04:49; Status DC Ondansetron HCl (Zofran) 4 mg PRN Q8HRS PRN IV NAUSEA/VOMITING; Start 01/21/17 at 04:30; Stop 01/21/17 at 09:02; Status DC Acetaminophen (Tylenol) 650 mg PRN Q4HRS PRN PO FEVER; Start 01/21/17 at 04:30 ; Stop 01/22/17 at 04:29; Status DC Albuterol/ Ipratropium (Duoneb) 3 ml RTQID NEB Last administered on 01/22/17 07 :49; Start 01/21/17 at 08:00; Stop 01/22/17 at 07:59; Status DC Albuterol Sulfate (Ventolin Neb Soln) 2.5 mg PRN Q2HRS PRN NEB SHORTNESS OF BREATH Last administered on 01/23/17 02:14; Start 01/21/17 at 07:15 Guaifenesin (Robitussin Dm) 10 ml PRN Q6HRS PRN PO COUGH; Start 01/21/17 at 07: 15; Status Cancel Ondansetron HCl (Zofran) 4 mg PRN Q6HRS PRN IV NAUSEA/VOMITING; Start 01/21/17 at 08:59 Alprazolam (Xanax) 0.5 mg PRN Q6HRS PRN PO ANXIETY / AGITATION Last administered on 01/22/17 20:34; Start 01/21/17 at 09:00 Aspirin (Yolette Aspirin) 325 mg DAILY PO Last administered on 01/23/17 09:14; Start 01/21/17 at 09:00 Throat Lozenges (Cepacol Sore Throat Lozenge) 1 analia PRN Q2HRS PRN PO SORE THROAT Last administered on 01/22/17 20:34; Start 01/21/17 at 09:00 Benzonatate (Tessalon Perle) 100 mg PRN TID PRN PO COUGH Last administered on 20:34; Start 01/21/17 at 09:00 Cetirizine HCl (Zyrtec) 10 mg DAILY PO Last administered on 01/23/17 09:15; Start 01/21/17 at 09:30 Diltiazem HCl (Cardizem 24hr Cd) 240 mg DAILY PO Last administered on 01/23/17 09:15; Start 01/21/17 at 09:00 Furosemide (Lasix) 80 mg DAILY PO Last administered on 01/23/17 09:14; Start at 09:00 Guaifenesin (Mucinex) 600 mg BID PO Last administered on 01/23/17 09:15; Start 01/21/17 at 09:00 Guaifenesin (Robitussin Dm) 10 ml PRN Q6HRS PRN PO COUGH Last administered on 09:13; Start 01/21/17 at 09:00 Losartan Potassium (Cozaar) 100 mg DAILY PO Last administered on 01/23/17 09:15 ; Start 01/21/17 at 09:00 Prednisone (Prednisone) 40 mg DAILY PO Last administered on 01/23/17 09:15; Start 01/21/17 at 09:00 Promethazine HCl/ Codeine (Phenergan With Codeine) 5 ml PRN Q4HRS PRN PO COUGH Last administered on 01/22/17 20:34; Start 01/21/17 at 09:00 Scopolamine (Transderm-Scop) 1 patch Q3DAYS TD Last administered on 01/21/17 10:04; Start 01/21/17 at 09:00 Tamsulosin HCl (Flomax) 0.4 mg DAILY PO Last administered on 01/23/17 09:15; Start 01/21/17 at 09:00 Budesonide (Pulmicort) 0.5 mg RTBID NEB Last administered on 01/23/17 08:00; Start 01/21/17 at 10:00 Pantoprazole Sodium (Protonix) 40 mg DAILYAC PO Last administered on 01/23/17 09:14; Start 01/21/17 at 09:30 Fluticasone Propionate (Flonase) 2 spray DAILY NS Last administered on 09:14; Start 01/21/17 at 09:30 Atorvastatin Calcium (Lipitor) 5 mg QHS PO Last administered on 01/22/17 20:34 ; Start 01/21/17 at 21:00 Non-Formulary Medication 40 mg DAILY PO ; Start 01/21/17 at 09:00; Status UNV Potassium Chloride (Klor-Con) 20 meq DAILYWBKFT PO Last administered on 09:15; Start 01/21/17 at 10:00 Albuterol Sulfate (Ventolin Neb Soln) 2.5 mg RTQID NEB Last administered on 01/23 11:14; Start 01/23/17 at 08:00 Active Scripts Active Prednisone 20 Mg Tablet 40 Mg PO DAILY Levaquin (Levofloxacin) 250 Mg Tablet 250 Mg PO DAILY06 Mucinex (Guaifenesin) 600 Mg Tablet.er 600 Mg PO BID Cepacol Sore Throat Lozenge (Benzocaine/Menthol) 1 Each Lozenge 1 Analia PO PRN Q2HRS PRN Benzonatate 100 Mg Capsule 100 Mg PO TID PRN Promethazine-Codeine Syrup (Promethazine Hcl/Codeine) 118 Ml Syrup 5 Ml PO PRN Q4HRS PRN Mucinex (Guaifenesin) 600 Mg Tablet.er 1 Tab PO BID Reported Metamucil Packet (Psyllium Seed (With Sugar)) 1 Each Packet 1 Each PO Miralax (Polyethylene Glycol 3350) 17 Gm Powd.pack 1 Pkt PO DAILY Zyrtec (Cetirizine Hcl) 10 Mg Tablet 1 Tab PO DAILY Xanax (Alprazolam) 0.5 Mg Tablet 0.5 Mg PO PRN Q6HRS PRN Robitussin Cough-Chest Dm Liq (Guaifenesin/Dextromethorphan) 118 Ml Liquid 118 Ml PO Transderm-Scop (Scopolamine) 1 Each Patch.td72 1 Patch TP Q3DAYS Protonix (Pantoprazole Sodium) 40 Mg Granpkt.dr 40 Mg PO DAILY Potassium Chloride 20 Meq Tablet.er 20 Meq PO DAILY Guaifenesin Dm Syrup (Guaifenesin/Dextromethorphan) 5 Ml Syrup 10 Ml PO PRN Q6HRS PRN Flonase Allergy Relief (Fluticasone Propionate) 9.9 Ml [place].susp 2 Sprays NS DAILY Cardizem Cd (Diltiazem Hcl) 240 Mg Cap.er.24h 1 Cap PO DAILY Albuterol Sulfate Neb Soln (Albuterol Sulfate) 2.5 Mg/3 Ml Vial.neb 1 Vial NEB PRN Q2HRS PRN Aspirin 325 Mg Tablet 1 Tab PO DAILY Duoneb 0.5-3(2.5) Mg/3 Ml (Albuterol/Ipratropium) 3 Ml Ampul.neb 3 Ml IH Q4HRS Symbicort 160-4.5 Mcg Inhaler (Budesonide/Formoterol Fumarate) 10.2 Gm Hfa.aer.ad 2 Puff IH BID Furosemide 40 Mg Tablet 80 Mg PO DAILY Nexium Capsule (Esomeprazole Magnesium) 40 Mg Capsule.dr 40 Mg PO DAILY Lovastatin 20 Mg Tablet 20 Mg PO DAILY Tamsulosin Hcl 0.4 Mg Cap.er.24h 0.4 Mg PO DAILY Losartan Potassium 50 Mg Tablet 100 Mg PO DAILY Vitals/I & O Vital Sign - Last 24 Hours 01/22/17 01/22/17 01/22/17 01/22/17 15:00 15:47 19:00 19:56 Temp 97.4 97.8 97.4 97.8 Pulse 68 83 Resp 22 18 B/P 100/56 117/69 Pulse Ox 97 94 95 O2 Delivery BiPAP/CPAP Nasal Cannula O2 Flow Rate 4.0 01/22/17 01/22/17 01/22/17 01/22/17 20:00 22:25 23:00 23:41 Temp 97.8 97.8 Pulse 72 Resp 22 B/P 105/66 Pulse Ox 100 O2 Delivery Nasal Cannula BiPAP/CPAP BiPAP/CPAP O2 Flow Rate 4.0 01/23/17 01/23/17 01/23/17 01/23/17 02:17 05:41 07:00 08:00 Temp 97.8 97.8 Pulse 67 Resp 18 B/P 111/75 Pulse Ox 94 O2 Delivery Nasal Cannula BiPAP/CPAP BiPAP/CPAP Nasal Cannula O2 Flow Rate 4.0 4.0 01/23/17 01/23/17 01/23/17 01/23/17 08:08 09:15 09:15 10:45 Temp 97.8 97.8 Pulse 67 67 68 Resp 18 B/P 111/75 111/75 110/73 Pulse Ox 93 O2 Delivery Nasal Cannula BiPAP/CPAP O2 Flow Rate 4.0 01/23/17 11:19 O2 Delivery Nasal Cannula O2 Flow Rate 4.0 Intake and Output 01/22/17 01/22/17 01/23/17 15:00 23:00 07:00 Intake Total 960 ml 1150 ml Output Total 800 ml 1100 ml Balance 160 ml 50 ml CESILIA COVINGTON MD Jan 23, 2017 11:56
[2017-01-23 15:00] VITALS: BP_SYST 109; BP_SYST 133; BP_DIAS 65; BP_DIAS 74
--- NOTE | 2017-01-23 18:22 | PDOC ---
PULMONARY PROGRESS NOTES Subjective pt feels better Vitals Vital Signs Date Time Temp Pulse Resp B/P Pulse Ox O2 Delivery O2 Flow Rate FiO2 01/23/17 16:35 94 Nasal Cannula 4.0 01/23/17 15:00 97.7 68 18 109/74 97.7 ROS: No Nausea, No Chest Pain, No Abdominal Pain, No Increase Cough General: Alert, No acute distress Lungs: Wheezing Cardiovascular: S1, S2 Abdomen: Soft, Non-tender Neuro Exam: Alert Extremities: No Edema, Other Skin: Warm Labs Laboratory Tests Test 01/21/17 22:50 01/22/17 07:05 O2 Saturation 92% (92-99) Arterial Blood pH 7.40 (7.35-7.45) Arterial Blood pCO2 at Patient Temp 54mmHg (35-46) Arterial Blood pO2 at Patient Temp 62mmHg (65-108) Arterial Blood HCO3 32mmol/L (21-28) Arterial Blood Base Excess 6mmol/L (-3-3) FiO2 36 White Blood Count 13.2x10^3/uL (4.0-11.0) Red Blood Count 4.94x10^6/uL (4.30-5.70) Hemoglobin 13.2g/dL (13.0-17.5) Hematocrit 41.1% (39.0-53.0) Mean Corpuscular Volume 83fL (79-100) Mean Corpuscular Hemoglobin 27pg (25-35) Mean Corpuscular Hemoglobin Concent 32g/dL (31-37) Red Cell Distribution Width 15.4% (11.5-14.5) Platelet Count 196x10^3/uL (140-400) Neutrophils (%) (Auto) 83% (31-73) Lymphocytes (%) (Auto) 8% (24-48) Monocytes (%) (Auto) 9% (0-9) Eosinophils (%) (Auto) 0% (0-3) Basophils (%) (Auto) 0% (0-3) Neutrophils # (Auto) 10.9x10^3uL (1.8-7.7) Lymphocytes # (Auto) 1.1x10^3/uL (1.0-4.8) Monocytes # (Auto) 1.2x10^3/uL (0.0-1.1) Eosinophils # (Auto) 0.0x10^3/uL (0.0-0.7) Basophils # (Auto) 0.0x10^3/uL (0.0-0.2) Sodium Level 134mmol/L (136-145) Potassium Level 4.5mmol/L (3.5-5.1) Chloride Level 93mmol/L (98-107) Carbon Dioxide Level 36mmol/L (21-32) Anion Gap 5 (6-14) Blood Urea Nitrogen 20mg/dL (8-26) Creatinine 0.9mg/dL (0.7-1.3) Estimated GFR (Cockcroft-Gault) 85.0 Glucose Level 120mg/dL (70-99) Calcium Level 9.3mg/dL (8.5-10.1) Medications Active Scripts Medications Dose Route/Sig Days Date Category Prednisone 20 Mg Tablet 40 Mg PO DAILY 12/27/16 Rx Levaquin (Levofloxacin) 250 Mg Tablet 250 Mg PO DAILY06 12/27/16 Rx Mucinex (Guaifenesin) 600 Mg Tablet.er 600 Mg PO BID 12/27/16 Rx Zyrtec (Cetirizine Hcl) 10 Mg Tablet 1 Tab PO DAILY 12/22/16 Reported Xanax (Alprazolam) 0.5 Mg Tablet 0.5 Mg PO PRN Q6HRS PRN 12/22/16 Reported Robitussin Cough-Chest Dm Liq (Guaifenesin/Dextromethorphan) 118 Ml Liquid 118 Ml PO 12/22/16 Reported Transderm-Scop (Scopolamine) 1 Each Patch.td72 1 Patch TP Q3DAYS 12/22/16 Reported Protonix (Pantoprazole Sodium) 40 Mg Granpkt.dr 40 Mg PO DAILY 12/22/16 Reported Potassium Chloride 20 Meq Tablet.er 20 Meq PO DAILY 12/22/16 Reported Guaifenesin Dm Syrup (Guaifenesin/Dextromethorphan) 5 Ml Syrup 10 Ml PO PRN Q6HRS PRN 06/01/16 Reported Flonase Allergy Relief (Fluticasone Propionate) 9.9 Ml [place].susp 2 Sprays NS DAILY 06/01/16 Reported Cardizem Cd (Diltiazem Hcl) 240 Mg Cap.er.24h 1 Cap PO DAILY 06/01/16 Reported Albuterol Sulfate Neb Soln (Albuterol Sulfate) 2.5 Mg/3 Ml Vial.neb 1 Vial NEB PRN Q2HRS PRN 06/01/16 Reported Aspirin 325 Mg Tablet 1 Tab PO DAILY 06/01/16 Reported Cepacol Sore Throat Lozenge (Benzocaine/Menthol) 1 Each Lozenge 1 Analia PO PRN Q2HRS PRN 04/23/16 Rx Benzonatate 100 Mg Capsule 100 Mg PO TID PRN 04/23/16 Rx Promethazine-Codeine Syrup (Promethazine Hcl/Codeine) 118 Ml Syrup 5 Ml PO PRN Q4HRS PRN 04/23/16 Rx Duoneb 0.5-3(2.5) Mg/3 Ml (Albuterol/Ipratropium) 3 Ml Ampul.neb 3 Ml IH Q4HRS 10/25/15 Reported Symbicort 160-4.5 Mcg Inhaler (Budesonide/Formoterol Fumarate) 10.2 Gm Hfa.aer.ad 2 Puff IH BID 08/11/15 Reported Furosemide 40 Mg Tablet 80 Mg PO DAILY 08/11/15 Reported Mucinex (Guaifenesin) 600 Mg Tablet.er 1 Tab PO BID 11/23/14 Rx Nexium Capsule (Esomeprazole Magnesium) 40 Mg Capsule.dr 40 Mg PO DAILY 01/18/14 Reported Lovastatin 20 Mg Tablet 20 Mg PO DAILY 01/18/14 Reported Tamsulosin Hcl 0.4 Mg Cap.er.24h 0.4 Mg PO DAILY 01/18/14 Reported Losartan Potassium 50 Mg Tablet 100 Mg PO DAILY 01/18/14 Reported Impression . 1. Acute on chronic respiratory failure secondary to acute exacerbation of chronic obstructive pulmonary disease. The patient was on 4 liters of oxygen supplementation with saturations of 80% upon initial evaluation by EMS. 2. Gastroesophageal reflux. 3. Atrial fibrillation. 4. Hypertension. 5. Acute exacerbation of chronic obstructive pulmonary disease. Plan . FILLED OUT FORM FOR HOME TRILOGY CONTINUE THE SAME FOR NOW HOPEFULLY HOME SOON PT HAS HAD BRONCHOSCOPY IN PAST NOT MUCH MUCUS PLUGGING I THINK HIS UPPER AIRWAY IS CHRONICALLY INFLAMED FROM GERD GABY RAMSEY MD Jan 23, 2017 18:21
[2017-01-23 19:59] VITALS: BP 92/48
[2017-01-23] MEDS: ALPRAZOLAM 0.5 MG TABLET PO PRN (20:24)
[2017-01-23] MEDS: PROMETH/CODEINE 6.25/10MG 5 ML SYRUP. PO PRN (20:25)
[2017-01-23] MEDS: ATORVASTATIN CALCIUM 10 MG TABLET. PO SCH (20:25)
[2017-01-23] MEDS: BENZONATATE 100 MG CAPSULE. PO PRN (20:25)
[2017-01-23] MEDS: BENZOCAINE/MENTHOL LOZENGE. PO PRN (20:25)
[2017-01-23 23:59] VITALS: BP 90/53
[2017-01-24 03:59] VITALS: BP 104/64
[2017-01-24 07:00] VITALS: BP 113/67
[2017-01-24] MEDS: BUDESONIDE 0.5 MG/2 ML NEBU NEB SCH (07:28)
[2017-01-24] MEDS: ALBUTEROL SULFATE 2.5 MG/3 ML NEBU. NEB SCH ×3 (07:28→15:26)
[2017-01-24] MEDS: FLUTICASONE 50MCG/NASAL SPRAY 16GM BOTTLE. NS SCH (08:09)
[2017-01-24] MEDS: POTASSIUM CHLORIDE 20 MEQ TABLET.ER. PO SCH (08:12)
[2017-01-24] MEDS: GUAIFENESIN ER 600 MG TABLET.ER PO SCH (08:12)
[2017-01-24] MEDS: GUAIFENESIN DM 200MG/20MG 10 ML SYRUP. PO PRN (08:12)
[2017-01-24] MEDS: TAMSULOSIN 0.4 MG CAP.ER.24H. PO SCH (08:12)
[2017-01-24] MEDS: ASPIRIN 325 MG TABLET PO SCH (08:13)
[2017-01-24] MEDS: PANTOPRAZOLE 40 MG TABLET. PO SCH (08:13)
[2017-01-24] MEDS: CETIRIZINE HCL 10 MG TABLET PO SCH (08:13)
[2017-01-24] MEDS: FUROSEMIDE 40 MG TABLET PO SCH (08:13)
[2017-01-24] MEDS: LOSARTAN POTASSIUM 50 MG TABLET. PO SCH (08:13)
[2017-01-24] MEDS: PREDNISONE 20 MG TABLET PO SCH (08:13)
[2017-01-24] MEDS: SCOPOLAMINE 1.5MG PATCH. TD SCH (08:14)
[2017-01-24] MEDS: DILTIAZEM HCL 240 MG CAP.ER.24H PO SCH (08:14)
[2017-01-24 10:52] VITALS: BP 105/57
--- NOTE | 2017-01-24 11:13 | PDOC ---
PROGRESS NOTES Chief Complaint Chief Complaint 1. Acute on chronic hypoxic respiratory failure needing NIPPV 2. AECOPD, severe 3. Anxiety 4. HTN 5. Cough Plan Continue NIPPV Trilogy vent - planning at [place] HTN stable - losartan and Cardizem Xanx for anxiety periodic nebulizations supplemental oxygen Prednisone pulmonology following prognosis guarded. Symptomatic treatment for cough. Anticipated DC today if we able to arrange trilogy History of Present Illness History of Present Illness sob mild on BIPAP Vitals Vitals Vital Signs Date Time Temp Pulse Resp B/P Pulse Ox O2 Delivery O2 Flow Rate FiO2 01/24/17 10:52 98.0 75 22 105/57 98 BiPAP/CPAP 98.0 01/24/17 08:00 4.0 Physical Exam General: Alert, Oriented X3, Cooperative, mild distress, Other (on BIPAP) Heart: Normal S1, Normal S2 Lungs: Clear, Other (mild wheezing.) Abdomen: Normal bowel sounds, Soft, No tenderness, No hepatosplenomegaly, No masses Extremities: No clubbing, No cyanosis, No edema, Normal pulses, No tenderness/ swelling Skin: No rashes, No breakdown, No significant lesion Assessment and Plan Assessmemt and Plan Problems Medical Problems: (1) Acute respiratory distress Status: Acute (2) COPD with acute exacerbation Status: Acute (3) Pleural effusion Status: Acute Problems: Comment Review of Relevant I have reviewed the following items cindy (where applicable) has been applied. Labs Microbiology 01/21/17 Blood Culture - Preliminary, Resulted NO GROWTH AFTER 3 DAYS Medications Current Medications Methylprednisolone Sodium Succinate (Solu-Medrol 125mg Vial) 125 mg 1X ONCE IV Last administered on 01/21/17 04:36; Start 01/21/17 at 04:15; Stop 01/21/17 at 04:49; Status DC Ondansetron HCl (Zofran) 4 mg PRN Q8HRS PRN IV NAUSEA/VOMITING; Start 01/21/17 at 04:30; Stop 01/21/17 at 09:02; Status DC Acetaminophen (Tylenol) 650 mg PRN Q4HRS PRN PO FEVER; Start 01/21/17 at 04:30 ; Stop 01/22/17 at 04:29; Status DC Albuterol/ Ipratropium (Duoneb) 3 ml RTQID NEB Last administered on 01/22/17 07 :49; Start 01/21/17 at 08:00; Stop 01/22/17 at 07:59; Status DC Albuterol Sulfate (Ventolin Neb Soln) 2.5 mg PRN Q2HRS PRN NEB SHORTNESS OF BREATH Last administered on 01/23/17 02:14; Start 01/21/17 at 07:15 Guaifenesin (Robitussin Dm) 10 ml PRN Q6HRS PRN PO COUGH; Start 01/21/17 at 07: 15; Status Cancel Ondansetron HCl (Zofran) 4 mg PRN Q6HRS PRN IV NAUSEA/VOMITING; Start 01/21/17 at 08:59 Alprazolam (Xanax) 0.5 mg PRN Q6HRS PRN PO ANXIETY / AGITATION Last administered on 01/23/17 20:24; Start 01/21/17 at 09:00 Aspirin (Yolette Aspirin) 325 mg DAILY PO Last administered on 01/24/17 08:13; Start 01/21/17 at 09:00 Throat Lozenges (Cepacol Sore Throat Lozenge) 1 analia PRN Q2HRS PRN PO SORE THROAT Last administered on 01/23/17 20:25; Start 01/21/17 at 09:00 Benzonatate (Tessalon Perle) 100 mg PRN TID PRN PO COUGH Last administered on 20:25; Start 01/21/17 at 09:00 Cetirizine HCl (Zyrtec) 10 mg DAILY PO Last administered on 01/24/17 08:13; Start 01/21/17 at 09:30 Diltiazem HCl (Cardizem 24hr Cd) 240 mg DAILY PO Last administered on 01/24/17 08:14; Start 01/21/17 at 09:00 Furosemide (Lasix) 80 mg DAILY PO Last administered on 01/24/17 08:13; Start at 09:00 Guaifenesin (Mucinex) 600 mg BID PO Last administered on 01/24/17 08:12; Start 01/21/17 at 09:00 Guaifenesin (Robitussin Dm) 10 ml PRN Q6HRS PRN PO COUGH Last administered on 08:12; Start 01/21/17 at 09:00 Losartan Potassium (Cozaar) 100 mg DAILY PO Last administered on 01/24/17 08:13 ; Start 01/21/17 at 09:00 Prednisone (Prednisone) 40 mg DAILY PO Last administered on 01/24/17 08:13; Start 01/21/17 at 09:00 Promethazine HCl/ Codeine (Phenergan With Codeine) 5 ml PRN Q4HRS PRN PO COUGH Last administered on 01/23/17 20:25; Start 01/21/17 at 09:00 Scopolamine (Transderm-Scop) 1 patch Q3DAYS TD Last administered on 01/24/17 08 :14; Start 01/21/17 at 09:00 Tamsulosin HCl (Flomax) 0.4 mg DAILY PO Last administered on 01/24/17 08:12; Start 01/21/17 at 09:00 Budesonide (Pulmicort) 0.5 mg RTBID NEB Last administered on 01/24/17 07:28; Start 01/21/17 at 10:00 Pantoprazole Sodium (Protonix) 40 mg DAILYAC PO Last administered on 01/24/17 08:13; Start 01/21/17 at 09:30 Fluticasone Propionate (Flonase) 2 spray DAILY NS Last administered on 08:09; Start 01/21/17 at 09:30 Atorvastatin Calcium (Lipitor) 5 mg QHS PO Last administered on 01/23/17 20:25 ; Start 01/21/17 at 21:00 Non-Formulary Medication 40 mg DAILY PO ; Start 01/21/17 at 09:00; Status UNV Potassium Chloride (Klor-Con) 20 meq DAILYWBKFT PO Last administered on 08:12; Start 01/21/17 at 10:00 Albuterol Sulfate (Ventolin Neb Soln) 2.5 mg RTQID NEB Last administered on 01/24 07:28; Start 01/23/17 at 08:00 Active Scripts Active Prednisone 20 Mg Tablet 40 Mg PO DAILY Levaquin (Levofloxacin) 250 Mg Tablet 250 Mg PO DAILY06 Mucinex (Guaifenesin) 600 Mg Tablet.er 600 Mg PO BID Cepacol Sore Throat Lozenge (Benzocaine/Menthol) 1 Each Lozenge 1 Analia PO PRN Q2HRS PRN Benzonatate 100 Mg Capsule 100 Mg PO TID PRN Promethazine-Codeine Syrup (Promethazine Hcl/Codeine) 118 Ml Syrup 5 Ml PO PRN Q4HRS PRN Mucinex (Guaifenesin) 600 Mg Tablet.er 1 Tab PO BID Reported Metamucil Packet (Psyllium Seed (With Sugar)) 1 Each Packet 1 Each PO Miralax (Polyethylene Glycol 3350) 17 Gm Powd.pack 1 Pkt PO DAILY Zyrtec (Cetirizine Hcl) 10 Mg Tablet 1 Tab PO DAILY Xanax (Alprazolam) 0.5 Mg Tablet 0.5 Mg PO PRN Q6HRS PRN Robitussin Cough-Chest Dm Liq (Guaifenesin/Dextromethorphan) 118 Ml Liquid 118 Ml PO Transderm-Scop (Scopolamine) 1 Each Patch.td72 1 Patch TP Q3DAYS Protonix (Pantoprazole Sodium) 40 Mg Granpkt.dr 40 Mg PO DAILY Potassium Chloride 20 Meq Tablet.er 20 Meq PO DAILY Guaifenesin Dm Syrup (Guaifenesin/Dextromethorphan) 5 Ml Syrup 10 Ml PO PRN Q6HRS PRN Flonase Allergy Relief (Fluticasone Propionate) 9.9 Ml [place].susp 2 Sprays NS DAILY Cardizem Cd (Diltiazem Hcl) 240 Mg Cap.er.24h 1 Cap PO DAILY Albuterol Sulfate Neb Soln (Albuterol Sulfate) 2.5 Mg/3 Ml Vial.neb 1 Vial NEB PRN Q2HRS PRN Aspirin 325 Mg Tablet 1 Tab PO DAILY Duoneb 0.5-3(2.5) Mg/3 Ml (Albuterol/Ipratropium) 3 Ml Ampul.neb 3 Ml IH Q4HRS Symbicort 160-4.5 Mcg Inhaler (Budesonide/Formoterol Fumarate) 10.2 Gm Hfa.aer.ad 2 Puff IH BID Furosemide 40 Mg Tablet 80 Mg PO DAILY Lovastatin 20 Mg Tablet 20 Mg PO DAILY Tamsulosin Hcl 0.4 Mg Cap.er.24h 0.4 Mg PO DAILY Losartan Potassium 50 Mg Tablet 100 Mg PO DAILY Vitals/I & O Vital Sign - Last 24 Hours 01/23/17 01/23/17 01/23/17 01/23/17 11:19 15:00 16:35 19:59 Temp 97.7 98.1 97.7 98.1 Pulse 68 113 Resp 18 22 B/P 109/74 92/48 Pulse Ox 93 94 92 O2 Delivery Nasal Cannula BiPAP/CPAP Nasal Cannula Nasal Cannula O2 Flow Rate 4.0 4.0 4.0 01/23/17 01/23/17 01/23/17 01/23/17 20:00 21:16 21:30 23:21 Pulse Ox 92 O2 Delivery Nasal Cannula Nasal Cannula BiPAP/CPAP BiPAP/CPAP O2 Flow Rate 4.0 4.0 01/23/17 01/24/17 01/24/17 01/24/17 23:59 01:10 03:16 03:59 Temp 99.0 98.0 99.0 98.0 Pulse 80 74 Resp 20 20 B/P 90/53 104/64 Pulse Ox 96 97 97 O2 Delivery BiPAP/CPAP BiPAP/CPAP BiPAP/CPAP BiPAP/CPAP 01/24/17 01/24/17 01/24/17 01/24/17 05:05 07:00 07:28 08:00 Temp 97.6 97.6 Pulse 78 Resp 18 B/P 113/67 Pulse Ox 98 95 97 O2 Delivery BiPAP/CPAP Nasal Cannula Nasal Cannula Nasal Cannula O2 Flow Rate 4.0 4.0 4.0 01/24/17 01/24/17 01/24/17 08:13 08:14 10:52 Temp 98.0 98.0 Pulse 78 78 75 Resp 22 B/P 113/67 113/67 105/57 Pulse Ox 98 O2 Delivery BiPAP/CPAP Intake and Output 01/23/17 01/23/17 01/24/17 15:00 23:00 07:00 Intake Total 480 ml 770 ml Output Total 600 ml 300 ml Balance -120 ml 470 ml CESILIA COVINGTON MD Jan 24, 2017 11:13
--- NOTE | 2017-01-24 13:36 | PDOC ---
PULMONARY PROGRESS NOTES Subjective PT NOT SEEN Vitals Vital Signs Date Time Temp Pulse Resp B/P Pulse Ox O2 Delivery O2 Flow Rate FiO2 01/24/17 11:33 97 Nasal Cannula 4.0 01/24/17 10:52 98.0 75 22 105/57 98.0 Medications Active Scripts Medications Dose Route/Sig Days Date Category Prednisone 20 Mg Tablet 40 Mg PO DAILY 12/27/16 Rx Levaquin (Levofloxacin) 250 Mg Tablet 250 Mg PO DAILY06 12/27/16 Rx Mucinex (Guaifenesin) 600 Mg Tablet.er 600 Mg PO BID 12/27/16 Rx Zyrtec (Cetirizine Hcl) 10 Mg Tablet 1 Tab PO DAILY 12/22/16 Reported Xanax (Alprazolam) 0.5 Mg Tablet 0.5 Mg PO PRN Q6HRS PRN 12/22/16 Reported Robitussin Cough-Chest Dm Liq (Guaifenesin/Dextromethorphan) 118 Ml Liquid 118 Ml PO 12/22/16 Reported Transderm-Scop (Scopolamine) 1 Each Patch.td72 1 Patch TP Q3DAYS 12/22/16 Reported Protonix (Pantoprazole Sodium) 40 Mg Granpkt.dr 40 Mg PO DAILY 12/22/16 Reported Potassium Chloride 20 Meq Tablet.er 20 Meq PO DAILY 12/22/16 Reported Guaifenesin Dm Syrup (Guaifenesin/Dextromethorphan) 5 Ml Syrup 10 Ml PO PRN Q6HRS PRN 06/01/16 Reported Flonase Allergy Relief (Fluticasone Propionate) 9.9 Ml [place].susp 2 Sprays NS DAILY 06/01/16 Reported Cardizem Cd (Diltiazem Hcl) 240 Mg Cap.er.24h 1 Cap PO DAILY 06/01/16 Reported Albuterol Sulfate Neb Soln (Albuterol Sulfate) 2.5 Mg/3 Ml Vial.neb 1 Vial NEB PRN Q2HRS PRN 06/01/16 Reported Aspirin 325 Mg Tablet 1 Tab PO DAILY 06/01/16 Reported Cepacol Sore Throat Lozenge (Benzocaine/Menthol) 1 Each Lozenge 1 Anal[place] PO PRN Q2HRS PRN 04/23/16 Rx Benzonatate 100 Mg Capsule 100 Mg PO TID PRN 04/23/16 Rx Promethazine-Codeine Syrup (Promethazine Hcl/Codeine) 118 Ml Syrup 5 Ml PO PRN Q4HRS PRN 04/23/16 Rx Duoneb 0.5-3(2.5) Mg/3 Ml (Albuterol/Ipratropium) 3 Ml Ampul.neb 3 Ml IH Q4HRS 10/25/15 Reported Symbicort 160-4.5 Mcg Inhaler (Budesonide/Formoterol Fumarate) 10.2 Gm Hfa.aer.ad 2 Puff IH BID 08/11/15 Reported Furosemide 40 Mg Tablet 80 Mg PO DAILY 08/11/15 Reported Mucinex (Guaifenesin) 600 Mg Tablet.er 1 Tab PO BID 11/23/14 Rx Nexium Capsule (Esomeprazole Magnesium) 40 Mg Capsule.dr 40 Mg PO DAILY 01/18/14 Reported Lovastatin 20 Mg Tablet 20 Mg PO DAILY 01/18/14 Reported Tamsulosin Hcl 0.4 Mg Cap.er.24h 0.4 Mg PO DAILY 01/18/14 Reported Losartan Potassium 50 Mg Tablet 100 Mg PO DAILY 01/18/14 Reported Impression . 1. Acute on chronic respiratory failure secondary to acute exacerbation of chronic obstructive pulmonary disease. The patient was on 4 liters of oxygen supplementation with saturations of 80% upon initial evaluation by EMS. 2. Gastroesophageal reflux. 3. Atrial fibrillation. 4. Hypertension. 5. Acute exacerbation of chronic obstructive pulmonary disease. Plan . FILLED OUT FORM FOR HOME TRILOGY HOME TODAY WITH TAPER PRED FOLLOW UP IN 2-4 WEEKS GABY RAMSEY MD Jan 24, 2017 13:36
[2017-01-24 14:43] VITALS: BP 96/57
--- NOTE | 2017-01-25 01:23 | DS ---
DATE OF DISCHARGE: 01/24/2017 DISCHARGE DIAGNOSES: 1. [id number] hypoxic respiratory failure on noninvasive positive pressure ventilation. 2. Acute chronic obstructive pulmonary disease exacerbation, severe. 3. Anxiety. 4. Hypertension. BRIEF HOSPITAL COURSE: This is a 66-year-old male patient admitted to the hospital for COPD exacerbation and he was requiring noninvasive positive pressure ventilation. He was evaluated by Pulmonology, Dr. Smith, who followed the patient, and authorized p.r.n. BiPAP. The patient's symptoms improved with BiPAP and home ventilator has been authorized by Pulmonology and the patient is stable enough to go home today and follow up with Pulmonology in 2-4 weeks. DISCHARGE EXAMINATION: Please see my progress note. DISCHARGE CONDITION: Stable. DISCHARGE MEDICATIONS: Continue all home medications. Please see MRAD. New medications, prednisone taper. DISCHARGE DISPOSITION: Home. CONDITION: Stable. PROGNOSIS: Guarded. FOLLOWUP: With Dr. Smith in 2-4 weeks. Total time spent for discharge is 31 minutes for patient education, counseling, and coordination of care. CESILIA COVINGTON MD DR: WILLA/ramin JOB#: [id number] / [id number] GLORIA
== END 2017-01-24 16:47 | disposition home or self-care (01) | DRG 189 ==
LOC: ER 04:06 → 5 SOUTH 04:20
PROVIDERS: ADMIT Internal Medicine; ATTEND Internal Medicine
PROC: 5A09457 Assistance with Respiratory Ventilation, 24-96 Consecutive Hours, Continuous Positive Airway Pressure (ICD-10-PCS; principal; 2017-01-24)
DX: J96.21 Acute and chronic respiratory failure with hypoxia (principal); J44.1 Chronic obstructive pulmonary disease with (acute) exacerbation; J44.0 Chronic obstructive pulmonary disease with (acute) lower respiratory infection; J90 Pleural effusion, not elsewhere classified; R65.10 Systemic inflammatory response syndrome (SIRS) of non-infectious origin without acute organ dysfunction; J20.9 Acute bronchitis, unspecified; E66.9 Obesity, unspecified; E78.5 Hyperlipidemia, unspecified; F41.9 Anxiety disorder, unspecified; I10 Essential (primary) hypertension; I25.10 Atherosclerotic heart disease of native coronary artery without angina pectoris; I27.81 Cor pulmonale (chronic); I48.91 Unspecified atrial fibrillation; K21.9 Gastro-esophageal reflux disease without esophagitis; L30.9 Dermatitis, unspecified; N50.89 Other specified disorders of the male genital organs; Z82.5 Family history of asthma and other chronic lower respiratory diseases; Z87.891 Personal history of nicotine dependence; Z99.81 Dependence on supplemental oxygen; Z79.899 Other long term (current) drug therapy; Z88.5 Allergy status to narcotic agent
CPT/HCPCS: 36415; 36600; 71010; 80048; 82805; 83605; 84484; 85027; 87040; 87641; 93005; 94250; 94640; 94660; 94760; 96374; J2930; J7512; J7620; 99285-25